=== PATIENT | female | born 1970 | race Hispanic/Latino ===

== ENCOUNTER 2018-06-30 09:23 | Emergency (ER) | payer OTHER ==
[~2018-06-30] VITALS: Ht 160 cm; Wt 88.9 kg
--- OUTSIDE RECORDS SUMMARY | 2018-06-30 09:25 | XMS REPORT | Summary of Care ---
Author Author [facility] Organization [facility] Address Unknown Phone Unavailable Encounter JOHN Cho(NAOMY) [id number] Date(s): 03/24/16 - 03/25/16 [facility] [address] [place] [address]- Discharge Diagnosis: Abdominal pain Discharge Disposition: Home or Self Care Attending Physician: Surya Perez MD Vital Signs Most recent to 1 2 oldest [Reference Range]: Height 162.56 cm (03/24/16 9:00 PM) Temperature Oral 98.2 DegF 98 DegF [96.4-99.1 DegF] (03/25/16 12:20 AM) (03/24/16 9:00 PM) Blood Pressure 129/79 mmHg 130/80 mmHg [90-140/60-90 mmHg] (03/25/16 12:20 AM) (03/24/16 9:00 PM) Respiratory Rate 20 BRMIN 18 BRMIN [14-20 BRMIN] (03/25/16 12:20 AM) (03/24/16 9:00 PM) Peripheral Pulse 70 bpm 74 bpm Rate [60-100 bpm] (03/25/16 12:20 AM) (03/24/16 9:00 PM) Weight 81.818 kg (03/24/16 9:00 PM) Body Mass Index 30.96 m2 (03/24/16 9:00 PM) Problem List Condition Effective Dates Status Health Status Informant MRSA(Confirmed)1, 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 Allergies, Adverse Reactions, Alerts Substance Reaction Severity Status penicillins Active Medications Cipro 500 mg oral tablet 500 mg=1 tab, PO, Q12H, X 7 day, # 14 tab, 0 Refill(s) Start Date: 03/25/16 Stop Date: 04/01/16 Status: Ordered Dilaudid 0.5 mg, Route: IV, ONCE, Dosing Weight 81.818, kg, Start date: 03/24/16 23:54:00 CDT, Stop date: 03/24/16 23:54:00 CDT Start Date: 03/24/16 Stop Date: 03/25/16 Status: Discontinued Flagyl 500 mg oral tablet 500 mg=1 tab, PO, BID, X 7 day, # 14 tab, 0 Refill(s) Start Date: 03/25/16 Stop Date: 04/01/16 Status: Ordered morphine Sulfate 4 mg, 2 mL, Route: IVP, Drug form: INJ, ONCE, Dosing Weight 81.818, kg, Priority : STAT, Start date: 03/24/16 21:10:00 CDT, Stop date: 03/24/16 21:10:00 CDT Notes: (Same as:MORPhine Sulfate) Start Date: 03/24/16 Stop Date: 03/24/16 Status: Completed ondansetron 4 mg, 2 mL, Route: IVP, Drug form: INJ, ONCE, Dosing Weight 81.818, kg, Priority : STAT, Start date: 03/24/16 21:10:00 CDT, Stop date: 03/24/16 21:10:00 CDT Notes: (Same as: Lenora) MEDICATION WASTE Product Size: 4 mgProduct Was dwight: ___ mg Start Date: 03/24/16 Stop Date: 03/24/16 Status: Completed Saline Flush 0.9% 10 mL, Route: IVP, Drug Form: INJ, Dosing Weight 81.818, kg, PRN, PRN Line Flush , Start date: 03/24/16 21:10:00 CDT, Duration: 30 day, Stop date: 04/23/16 21:09 :00 CDT Notes: (Same as: BD Posiflush) Start Date: 03/24/16 Stop Date: 03/25/16 Status: Discontinued Sodium Chloride 0.9% (Bolus) IV 1,000 mL, 2,000 ml/hr, Infuse Over: 30 minutes, Route: IV, 1,000, Drug form: INJ , ONCE, Priority: STAT, Dosing Weight 81.818 kg, Start date: 03/24/16 21:10:00 C DT, Duration: 1 doses or times, Stop date: 03/24/16 21:10:00 CDT Start Date: 03/24/16 Stop Date: 03/24/16 Status: Completed Ultram 50 mg oral tablet 100 mg=2 tab, PO, Q6H, PRN pain, X 5 day, # 40 tab, 0 Refill(s) Start Date: 03/25/16 Stop Date: 03/30/16 Status: Ordered Zofran ODT 4 mg oral tablet, disintegrating 4 mg=1 tab, PO, BID, PRN Nausea and Vomiting, Dissolve tab under tongue, X 4 day , # 8 tab, 0 Refill(s) Start Date: 03/25/16 Stop Date: 03/29/16 Status: Ordered Results ELECTROLYTES Most recent to 1 oldest [Reference Range]: Sodium Lvl [135-145 138 mEq/L mEq/L] (03/24/16 10:03 PM) Potassium Lvl 3.8 mEq/L [3.5-5.1 mEq/L] (03/24/16 10:03 PM) Chloride Lvl [95-109 107 mEq/L mEq/L] (03/24/16 10:03 PM) CO2 [24-32 mEq/L] 23 mEq/L *LOW* (03/24/16 10:03 PM) AGAP [10.0-20.0 11.8 mEq/L mEq/L] (03/24/16 10:03 PM) CHEM PANEL Most recent to 1 oldest [Reference Range]: Creatinine Lvl 0.87 mg/dL [0.50-1.40 mg/dL] (03/24/16 10:03 PM) eGFR 81 mL/min/1.73m2 1 *NA* (03/24/16 10:03 PM) BUN [7-22 mg/dL] 16 mg/dL (03/24/16 10:03 PM) B/C Ratio [6-25] 18 (03/24/16 10:03 PM) Glucose Lvl [70-99 112 mg/dL mg/dL] *HI* (03/24/16 10:03 PM) Total Protein 7.2 g/dL [6.4-8.4 g/dL] (03/24/16 10:03 PM) Albumin Lvl [3.5-5.0 3.6 g/dL g/dL] (03/24/16 10:03 PM) Globulin [2.7-4.2 3.6 g/dL g/dL] (03/24/16 10:03 PM) A/G Ratio [0.7-1.6] 1.0 (03/24/16 10:03 PM) Calcium Lvl 8.1 mg/dL [8.5-10.5 mg/dL] *LOW* (03/24/16 10:03 PM) ALT [0-65 unit/L] 21 unit/L (03/24/16 10:03 PM) AST [0-37 unit/L] 11 unit/L (03/24/16 10:03 PM) Alk Phos [39-136 55 unit/L unit/L] (03/24/16 10:03 PM) Bili Total [0.2-1.3 0.3 mg/dL mg/dL] (03/24/16 10:03 PM) Lipase Lvl [73-393 178 unit/L unit/L] (03/24/16 10:03 PM) 1Result Comment: The eGFR is calculated using the CKD-EPI formula. In most young, healthy individuals the eGFR will be >90 mL/min/1.73m2. The eGFR declines with age. An eGFR of 60-89 may be normal in some populations, particularly the elderly, for whom the CKD-EPI formula has not been extensively validated. Use of the eGFR is not recommended in the following populations: Individuals with unstable creatinine concentrations, including patients and those with serious co-morbid conditions. Patients with extremes in muscle mass or diet. The data above are obtained from the National Kidney Disease Education Program ( NKDEP) which additionally recommends that when the eGFR is used in patients with extremes of body mass index for purposes of drug dosing, the eGFR should be mul tiplied by the estimated BMI. ENDOCRINOLOGY Most recent to 1 oldest [Reference Range]: hCG Tot <1 mIU/mL *NA* (03/24/16 10:03 PM) URINE CHEM Most recent to 1 oldest [Reference Range]: U Preg [Negative] Negative (03/24/16 10:40 PM) URINE AND STOOL Most recent to 1 oldest [Reference Range]: UA Turbidity [Clear] Clear (03/24/16 10:40 PM) UA Color Colorless *NA* (03/24/16 10:40 PM) UA pH [5.0-8.0] 7.0 (03/24/16 10:40 PM) UA Spec Grav 1.008 [<=1.030] (03/24/16 10:40 PM) UA Glucose [Negative Negative mg/dL mg/dL] *NA* (03/24/16 10:40 PM) UA Blood [Negative] Negative (03/24/16 10:40 PM) UA Ketones [Negative Negative mg/dL mg/dL] *NA* (03/24/16 10:40 PM) UA Protein [Negative Negative mg/dL mg/dL] (03/24/16 10:40 PM) UA Urobilinogen <=1.0 mg/dL [0.1-1.0 mg/dL] *NA* (03/24/16 10:40 PM) UA Bili [Negative] Negative *NA* (03/24/16 10:40 PM) UA Leuk Est Negative [Negative] (03/24/16 10:40 PM) UA Nitrite Negative [Negative] (03/24/16 10:40 PM) UA RBC [0-2 /HPF] <1 /HPF (03/24/16 10:40 PM) UA Sq Epi [Few /LPF] Occasional /LPF *NA* (03/24/16 10:40 PM) HEMATOLOGY Most recent to 1 oldest [Reference Range]: WBC [3.7-10.4 K/CMM] 9.3 K/CMM (03/24/16 10:03 PM) RBC [4.20-5.40 4.36 M/CMM M/CMM] (03/24/16 10:03 PM) Hgb [12.0-16.0 g/dL] 13.7 g/dL (03/24/16 10:03 PM) Hct [36.0-48.0 %] 39.7 % (03/24/16 10:03 PM) MCV [80.0-98.0 fL] 91.1 fL (03/24/16 10:03 PM) MCH [27.0-31.0 pg] 31.5 pg *HI* (03/24/16 10:03 PM) MCHC [32.0-36.0 34.6 g/dL g/dL] (03/24/16 10:03 PM) RDW [11.5-14.5 %] 13.5 % (03/24/16 10:03 PM) Platelet [133-450 201 K/CMM K/CMM] (03/24/16 10:03 PM) MPV [7.4-10.4 fL] 9.2 fL (03/24/16 10:03 PM) Segs [45.0-75.0 %] 59.8 % (03/24/16 10:03 PM) Lymphocytes 29.8 % [20.0-40.0 %] (03/24/16 10:03 PM) Monocytes [2.0-12.0 7.8 % %] (03/24/16 10:03 PM) Eosinophils [0.0-4.0 2.1 % %] (03/24/16 10:03 PM) Basophils [0.0-1.0 0.5 % %] (03/24/16 10:03 PM) Segs-Bands # 5.6 K/CMM [1.5-8.1 K/CMM] (03/24/16 10:03 PM) Lymphocytes # 2.8 K/CMM [1.0-5.5 K/CMM] (03/24/16 10:03 PM) Monocytes # [0.0-0.8 0.7 K/CMM K/CMM] (03/24/16 10:03 PM) Eosinophils # 0.2 K/CMM [0.0-0.5 K/CMM] (03/24/16 10:03 PM) Immunizations No data available for this section Procedures Procedure Date Related Diagnosis Body Site Cholecystectomy Tubal ligation Social History Social History Type Response Sexual Sexually active: Yes. Alcohol Current, Type Wine. Frequency: 1-2 times per year. Alcohol use interferes with work or home: No. Drinks more than intended: No. Others hurt by drinking: No. Ready to change: No. Household alcohol concerns: No. Smoking Status Never smoker; Exposure to Tobacco Smoke None; Cigarette Smoking Last 365 Days No; Reg Smoking Cessation Counseling No Assessment and Plan No data available for this section
--- OUTSIDE RECORDS SUMMARY | 2018-06-30 09:25 | XMS REPORT | Summary of Care ---
Author Organization Unknown Address Unknown Phone Unavailable Encounter JOHN Cho(NAOMY) [id number] Date(s): 11/17/13 - 11/17/13 [facility] [address] [address] [facility] Discharge Diagnosis: Upper respiratory infection Discharge Disposition: Home Physician Attending: Verenice Bone MD Reason for Visit BACK PAIN Vital Signs 1 2 3 Most recent to oldest [Reference Range]: 97.8 DegF (11/17/13 3:13 PM) 98.1 DegF (11/17/13 11:37 AM) Temperature Oral [96.4-99.1 DegF] 113 mmHg (11/17/13 3:13 PM) 127 mmHg (11/17/13 11:37 AM) Systolic Blood Pressure [90-140 mmHg] 73 mmHg (11/17/13 3:13 PM) 83 mmHg (11/17/13 11:37 AM) Diastolic Blood Pressure [60-90 mmHg] 19 BRMIN (11/17/13 3:13 PM) 18 BRMIN (11/17/13 2:02 PM) 18 BRMIN (11/17/13 11:37 AM) Respiratory Rate [14-20 BRMIN] 64 bpm (11/17/13 3:13 PM) 80 bpm (11/17/13 11:37 AM) Peripheral Pulse Rate [60-100 bpm] 90.909 kg (11/17/13 11:37 AM) Weight Problem List Condition Effective Dates Status Health Status Informant MRSA(Confirmed)1, 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 Allergies, Adverse Reactions, Alerts Substance Reaction Severity Status penicillins Active Medications acetaminophen-hydrocodone 325 mg-10 mg oral tablet 1 tab, Route: PO, Dosing Weight 90.909, kg, ONCE, STAT, Start date: 11/17/13 13: 45:00, Stop date: 11/17/13 13:45:00 Start Date: 11/17/13 Stop Date: 11/17/13 Status: Completed albuterol 0.083% inhalation solution 2.49 mg, Route: NEB, ONCE, Dosing Weight 90.909, kg, Priority: STAT, Start date: 11/17/13 13:45:00, Stop date: 11/17/13 13:45:00 Start Date: 11/17/13 Stop Date: 11/17/13 Status: Completed Azithromycin 5 Day Dose Pack 250 mg oral tablet 500 mg=2 tab, PO, ONCE, TAKE 2 TABLETS ON DAY ONE ONLY, # 2 tab, 0 Refill(s) Special Instructions: TAKE 2 TABLETS ON DAY ONE ONLY Start Date: 11/17/13 Status: Ordered predniSONE 20 mg oral tablet 60 mg=3 tab, PO, Daily, Take 3 tablets for 60 mg dose, # 15 tab, 0 Refill(s) Special Instructions: Take 3 tablets for 60 mg dose Start Date: 11/17/13 Stop Date: 11/22/13 Status: Ordered Tessalon 200 mg oral capsule 200 mg=1 cap, PO, TID, # 21 cap, 0 Refill(s) Start Date: 11/17/13 Stop Date: 11/24/13 Status: Ordered tramadol 50 mg oral tablet 50 mg=1 tab, PO, Q4H, Pain, # 60 tab, 0 Refill(s) Start Date: 11/17/13 Stop Date: 11/27/13 Status: Ordered Results ELECTROLYTES Most recent to 1 oldest [Reference Range]: Sodium Lvl [135-145 136 mEq/L mEq/L] (11/17/13 2:12 PM) Potassium Lvl 4.3 mEq/L [3.5-5.1 mEq/L] (11/17/13 2:12 PM) Chloride Lvl [95-109 106 mEq/L mEq/L] (11/17/13 2:12 PM) CO2 [24-32 mEq/L] 27 mEq/L (11/17/13 2:12 PM) AGAP [10.0-20.0 7.3 mEq/L mEq/L] *LOW* (11/17/13 2:12 PM) CHEM PANEL Most recent to 1 oldest [Reference Range]: Creatinine Lvl 1.1 mg/dL [0.5-1.4 mg/dL] (11/17/13 2:12 PM) eGFR 62 mL/min/1.73m2 1 *NA* (11/17/13 2:12 PM) BUN [7-22 mg/dL] 13 mg/dL (11/17/13 2:12 PM) Glucose Lvl [70-99 104 mg/dL 2 mg/dL] *HI* (11/17/13 2:12 PM) Calcium Lvl 8.2 mg/dL [8.5-10.5 mg/dL] *LOW* (11/17/13 2:12 PM) 1Result Comment: The eGFR is calculated [...] be mul tiplied by the estimated BMI. 2Interpretive Data: Adult reference range values reflect the clinical guidelines of the [place] [employer]. IMMUNOLOGY Most recent to 1 oldest [Reference Range]: CDC HIV 4th GEN Negative [Negative] (11/17/13 2:12 PM) HEMATOLOGY Most recent to 1 oldest [Reference Range]: WBC [3.7-10.4 K/CMM] 6.6 K/CMM (11/17/13 2:12 PM) RBC [4.20-5.40 4.16 M/CMM M/CMM] *LOW* (11/17/13 2:12 PM) Hgb [12.0-16.0 g/dL] 13.2 g/dL (11/17/13 2:12 PM) Hct [36.0-48.0 %] 38.3 % (11/17/13 2:12 PM) MCV [81.0-99.0 fL] 92.2 fL (11/17/13 2:12 PM) MCH [27.0-31.0 pg] 31.8 pg *HI* (11/17/13 2:12 PM) MCHC [32.0-36.0 34.5 g/dL g/dL] (11/17/13 2:12 PM) RDW [11.5-14.5 %] 13.5 % (11/17/13 2:12 PM) Platelet [133-450 101 K/CMM K/CMM] *LOW* (11/17/13 2:12 PM) MPV [7.4-10.4 fL] 9.7 fL (11/17/13 2:12 PM) Segs [45.0-75.0 %] 62.3 % (11/17/13 2:12 PM) Lymphocytes 30.5 % [20.0-40.0 %] (11/17/13 2:12 PM) Monocytes [2.0-12.0 4.0 % %] (11/17/13 2:12 PM) Eosinophils [0.0-4.0 2.5 % %] (11/17/13 2:12 PM) Basophils [0.0-1.0 0.7 % %] (11/17/13 2:12 PM) Segs-Bands # 4.1 K/CMM [1.5-8.1 K/CMM] (11/17/13 2:12 PM) Lymphocytes # 2.0 K/CMM [1.0-5.5 K/CMM] (11/17/13 2:12 PM) Monocytes # [0.0-0.8 0.3 K/CMM K/CMM] (11/17/13 2:12 PM) Eosinophils # 0.2 K/CMM [0.0-0.5 K/CMM] (11/17/13 2:12 PM) Basophils # [0.0-0.2 0.0 K/CMM K/CMM] (11/17/13 2:12 PM) D-Dimer 0.38 ug/mL FEU 3 *NA* (11/17/13 2:12 PM) 3Interpretive Data: In DIC, quantitative D-Dimer is generally greater than 0.66 ug/mL FEU. Values of quantitative D-Dimer less than 0.40 ug/mL FEU have been reported to be associated with a low probability of deep vein thrombosis/pulmonary embolism. This test alone should not be used to rule out DVT/PE. Medications Administered During Your Visit No data available for this section Immunizations No data available for this section
--- OUTSIDE RECORDS SUMMARY | 2018-06-30 09:25 | XMS REPORT | Summary of Care ---
Author Author [facility] Organization [facility] Address Unknown Phone Unavailable Encounter JOHN Cho(NAOMY) [id number] Date(s): 04/25/17 - 04/25/17 [facility] [address] [place] [address]- Discharge Disposition: Home or Self Care Attending Physician: Dale Mary MD Vital Signs Most recent to 1 2 oldest [Reference Range]: Height 162.56 cm (04/25/17 12:03 PM) Temperature Oral 98.0 DegF 98.3 DegF [96.4-99.1 DegF] (04/25/17 6:23 PM) (04/25/17 12:03 PM) Blood Pressure 145/78 mmHg 143/65 mmHg [90-140/60-90 mmHg] *HI* *HI* (04/25/17 6:23 PM) (04/25/17 12:03 PM) Respiratory Rate 20 BRMIN 18 BRMIN [14-20 BRMIN] (04/25/17 6:23 PM) (04/25/17 12:03 PM) Peripheral Pulse 74 bpm 73 bpm Rate [60-100 bpm] (04/25/17 6:23 PM) (04/25/17 12:03 PM) Weight 86.364 kg (04/25/17 12:03 PM) Body Mass Index 32.68 m2 (04/25/17 12:03 PM) Problem List Condition Effective Dates Status Health Status Informant Acute Resolved anxiety(Confirmed) 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 Allergies, Adverse Reactions, Alerts Substance Reaction Severity Status penicillins Active Medications Benadryl 25 mg, 0.5 mL, Route: IVP, Drug form: INJ, ONCE, Dosing Weight 86.364, kg, Prior ity: STAT, Start date: 04/25/17 15:09:00 CDT, Stop date: 04/25/17 15:09:00 CDT Notes: (Same as: Benadryl) Start Date: 04/25/17 Stop Date: 04/25/17 Status: Completed dexamethasone 10 mg, 2.5 mL, Route: IVP, Drug form: INJ, ONCE, Dosing Weight 86.364, kg, Prior ity: STAT, Start date: 04/25/17 15:09:00 CDT, Stop date: 04/25/17 15:09:00 CDT Start Date: 04/25/17 Stop Date: 04/25/17 Status: Completed ketOROLAC 15 mg/mL injectable solution 15 mg, 0.5 mL, Route: IVP, Drug form: INJ, ONCE, Dosing Weight 86.364, kg, Prior ity: STAT, Start date: 04/25/17 15:09:00 CDT, Stop date: 04/25/17 15:09:00 CDT Notes: (Same as:Toradol) IV bolus must be given >15 seconds. Give IM administration slowly and deeply into the muscle.Not for use > 4 days MEDICATION WASTE Product Size: 30 mgProduct Wasted: ___ mg Start Date: 04/25/17 Stop Date: 04/25/17 Status: Completed NS (Bolus) IV 1,000 mL, 1,000 ml/hr, Infuse Over: 1 hr, Route: IV, 1,000, Drug form: INJ, ONCE , Priority: STAT, Dosing Weight 86.364 kg, Start date: 04/25/17 15:09:00 CDT, Du ration: 1 doses or times, Stop date: 04/25/17 15:09:00 CDT Start Date: 04/25/17 Stop Date: 04/25/17 Status: Completed Reglan 10 mg, 2 mL, Route: IVP, Drug form: INJ, ONCE, Dosing Weight 86.364, kg, Priorit y: STAT, Start date: 04/25/17 15:09:00 CDT, Stop date: 04/25/17 15:09:00 CDT Notes: (Same as: Reglan) Start Date: 04/25/17 Stop Date: 04/25/17 Status: Completed Saline Flush 0.9% 10 mL, Route: IVP, Drug Form: INJ, Dosing Weight 81.818, kg, PRN, PRN Line Flush , Start date: 04/25/17 12:04:00 CDT, Duration: 30 day, Stop date: 05/25/17 12:03 :00 CDT Notes: Same as: BD Posiflush Sterile Start Date: 04/25/17 Stop Date: 04/25/17 Status: Discontinued Results URINE CHEM Most recent to 1 oldest [Reference Range]: U Preg [Negative] Negative (04/25/17 5:26 PM) URINE AND STOOL Most recent to 1 oldest [Reference Range]: UA Turbidity [Clear] Slight *ABN* (04/25/17 5:26 PM) UA Color [Yellow] Yellow *NA* (04/25/17 5:26 PM) UA pH [5.0-8.0] 6.0 (04/25/17 5:26 PM) UA Spec Grav 1.026 [<=1.030] (04/25/17 5:26 PM) UA Glucose [Negative Negative mg/dL mg/dL] *NA* (04/25/17 5:26 PM) UA Blood [Negative] Negative (04/25/17 5:26 PM) UA Ketones [Negative Negative mg/dL mg/dL] *NA* (04/25/17 5:26 PM) UA Protein [Negative Negative mg/dL mg/dL] (04/25/17 5:26 PM) UA Urobilinogen <=1.0 mg/dL [0.1-1.0 mg/dL] *NA* (04/25/17 5:26 PM) UA Bili [Negative] Negative *NA* (04/25/17 5:26 PM) UA Leuk Est Negative [Negative] (04/25/17 5:26 PM) UA Nitrite Negative [Negative] (04/25/17 5:26 PM) UA WBC [0-5 /HPF] 2 /HPF (04/25/17 5:26 PM) UA RBC [0-2 /HPF] 4 /HPF *HI* (04/25/17 5:26 PM) UA Sq Epi [Few /LPF] Occasional /LPF *NA* (04/25/17 5:26 PM) UA CaOx Peggy [None Moderate /HPF Seen /HPF] *ABN* (04/25/17 5:26 PM) UA Mucus [None Seen Few /LPF /LPF] *NA* (04/25/17 5:26 PM) HEMATOLOGY Most recent to 1 oldest [Reference Range]: WBC [3.7-10.4 K/CMM] 8.7 K/CMM (04/25/17 12:43 PM) RBC [4.20-5.40 4.60 M/CMM M/CMM] (04/25/17 12:43 PM) Hgb [12.0-16.0 g/dL] 14.6 g/dL (04/25/17 12:43 PM) Hct [36.0-48.0 %] 41.4 % (04/25/17 12:43 PM) MCV [80.0-98.0 fL] 90.0 fL (04/25/17 12:43 PM) MCH [27.0-31.0 pg] 31.8 pg *HI* (04/25/17 12:43 PM) MCHC [32.0-36.0 35.3 g/dL g/dL] (04/25/17 12:43 PM) RDW [11.5-14.5 %] 13.4 % (04/25/17 12:43 PM) Platelet [133-450 257 K/CMM K/CMM] (04/25/17 12:43 PM) MPV [7.4-10.4 fL] 8.6 fL (04/25/17 12:43 PM) Segs [45.0-75.0 %] 62.4 % (04/25/17 12:43 PM) Lymphocytes 26.7 % [20.0-40.0 %] (04/25/17 12:43 PM) Monocytes [2.0-12.0 7.5 % %] (04/25/17 12:43 PM) Eosinophils [0.0-4.0 2.8 % %] (04/25/17 12:43 PM) Basophils [0.0-1.0 0.6 % %] (04/25/17 12:43 PM) Segs-Bands # 5.4 K/CMM [1.5-8.1 K/CMM] (04/25/17 12:43 PM) Lymphocytes # 2.3 K/CMM [1.0-5.5 K/CMM] (04/25/17 12:43 PM) Monocytes # [0.0-0.8 0.7 K/CMM K/CMM] (04/25/17 12:43 PM) Eosinophils # 0.2 K/CMM [0.0-0.5 K/CMM] (04/25/17 12:43 PM) Basophils # [0.0-0.2 0.1 K/CMM K/CMM] (04/25/17 12:43 PM) Immunizations No data available for this [...]
--- OUTSIDE RECORDS SUMMARY | 2018-06-30 09:25 | XMS REPORT | Summary of Care ---
Author Author [facility] Organization [facility] Address Unknown Phone Unavailable Encounter JOHN Cho(NAOMY) [id number] Date(s): 04/03/17 - 04/03/17 [facility] [address] [place] [address]- Discharge Disposition: Non-Emergent Attending Physician: Anna Jose MD Vital Signs Most recent to 1 oldest [Reference Range]: Height 162.56 cm (04/03/17 6:45 PM) Temperature Oral 98.6 DegF [96.4-99.1 DegF] (04/03/17 6:45 PM) Blood Pressure 148/79 mmHg [90-140/60-90 mmHg] *HI* (04/03/17 6:45 PM) Respiratory Rate 17 BRMIN [14-20 BRMIN] (04/03/17 6:45 PM) Peripheral Pulse 60 bpm Rate [60-100 bpm] (04/03/17 6:45 PM) Weight 81.818 kg (04/03/17 6:45 PM) Body Mass Index 30.96 m2 (04/03/17 6:45 PM) Problem List Condition Effective Dates Status Health Status Informant MRSA(Confirmed)1, 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 Allergies, Adverse Reactions, Alerts Substance Reaction Severity Status penicillins Active Medications No data available for this section Results No data available for this section Immunizations [...] alcohol concerns: No. Smoking Status Never smoker; Ready to change: No; Concerns about tobacco use in household: No; Exposure to Tobacco Smoke None; Cigarette Smoking Last 365 Days No; Reg Smoking Cessation Counseling No Assessment and Plan No data available for this section
--- OUTSIDE RECORDS SUMMARY | 2018-06-30 09:25 | XMS REPORT | Summary of Care ---
Author Organization Unknown Address Unknown Phone Unavailable Encounter HQ Marquis(NAOMY) [id number] Date(s): 12/06/13 - 12/06/13 [facility] [address] [address] - [facility] Discharge Diagnosis: Muscle strain Discharge Disposition: Home Physician Attending: Arslan Antunez MD Reason for Visit LEFT SIDE PAIN Vital Signs 1 2 3 Most recent to oldest [Reference Range]: 162.56 cm (12/06/13 7:46 AM) Height 98.7 DegF (12/06/13 11:30 AM) 98.9 DegF (12/06/13 10:56 AM) 98.4 DegF (12/06/13 7:50 AM) Temperature Oral [96.4-99.1 DegF] 117 mmHg (12/06/13 11:30 AM) 126 mmHg (12/06/13 10:56 AM) 143 mmHg *HI* (12/06/13 7:50 AM) Systolic Blood Pressure [90-140 mmHg] 74 mmHg (12/06/13 11:30 AM) 80 mmHg (12/06/13 10:56 AM) 99 mmHg *HI* (12/06/13 7:50 AM) Diastolic Blood Pressure [60-90 mmHg] 18 BRMIN (12/06/13 11:30 AM) 18 BRMIN (12/06/13 10:56 AM) 18 BRMIN (12/06/13 7:50 AM) Respiratory Rate [14-20 BRMIN] 72 bpm (12/06/13 11:30 AM) 71 bpm (12/06/13 10:56 AM) 63 bpm (12/06/13 7:50 AM) Peripheral Pulse Rate [60-100 bpm] 81.818 kg (12/06/13 7:46 AM) Weight 30.96 m2 (12/06/13 7:46 AM) Body Mass Index Problem List Condition Effective Dates Status Health Status Informant MRSA(Confirmed)1, 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 Allergies, Adverse Reactions, Alerts Substance Reaction Severity Status penicillins Active Medications Flexeril 10 mg, Route: PO, ONCE, Dosing Weight 81.818, kg, Priority: STAT, Start date: 10:58:00, Stop date: 12/06/13 10:58:00 Start Date: 12/06/13 Stop Date: 12/06/13 Status: Completed Ultram ER 100 mg oral tablet, extended release 100 mg=1 tab, PO, Daily, # 15 tab, 0 Refill(s) Start Date: 12/06/13 Status: Ordered Medications Administered During Your Visit No data available for this section Immunizations No data available for this section Procedures Procedure Type Body Site Date of Procedure Related Diagnosis Cholecystectomy Tubal ligation Social History Social History Type Response Sexual Sexually active: Yes Alcohol Use: Current, Type: Wine, Frequency: 1-2 times per year, Has alcohol use interfered with work or home life? No, Do you ever drink more than intended? No, Has anyone been hurt or at risk by your drinking? No, Ready to change: No, Concerns about alcohol use in household: No Smoking Status Never smoker, Exposure to Tobacco Smoke None, Cigarette Smoking Last 365 Days No, Reg Smoking Cessation Counseling No
--- OUTSIDE RECORDS SUMMARY | 2018-06-30 09:25 | XMS REPORT | Summary of Care ---
Author Author [facility] Organization [facility] Address Unknown Phone Unavailable Encounter HQ Marquis(NAOMY) [id number] Date(s): 05/16/17 - 05/17/17 [facility] [address] [place] [address]- [phone] Discharge Diagnosis: Atypical chest pain Discharge Diagnosis: Headache Discharge Disposition: Home or Self Care Attending Physician: Angeline Ahumada DO Vital Signs 1 2 3 Most recent to oldest [Reference Range]: 162.56 cm (05/16/17 7:34 PM) Height 97.9 DegF (05/17/17 1:55 AM) 98 DegF (05/16/17 9:51 PM) 97.9 DegF (05/16/17 7:34 PM) Temperature Oral [96.4-99.1 DegF] 126/77 mmHg (05/17/17 1:55 AM) 139/81 mmHg (05/17/17 12:55 AM) 145/78 mmHg *HI* (05/16/17 11:55 PM) Blood Pressure [90-140/60-90 mmHg] 17 BRMIN (05/17/17 1:55 AM) 20 BRMIN (05/17/17 12:55 AM) 16 BRMIN (05/16/17 11:55 PM) Respiratory Rate [14-20 BRMIN] 65 bpm (05/16/17 9:51 PM) 74 bpm (05/16/17 7:34 PM) Peripheral Pulse Rate [60-100 bpm] 87.273 kg (05/16/17 7:34 PM) Weight 33.03 m2 (05/16/17 7:34 PM) Body Mass Index Problem List Condition Effective Dates Status Health Status Informant Acute Resolved anxiety(Confirmed) 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 Allergies, Adverse Reactions, Alerts Substance Reaction Severity Status penicillins Active Medications diphenhydrAMINE 25 mg, Route: IVP, ONCE, Dosing Weight 87.273, kg, Priority: STAT, Start date: 1 23:35:00 CDT, Stop date: 05/16/17 23:35:00 CDT Start Date: 05/16/17 Stop Date: 05/16/17 Status: Completed ketOROLAC 15 mg, Route: IVP, Drug form: INJ, ONCE, Dosing Weight 87.273, kg, Priority: STA T, Start date: 05/17/17 0:24:00 CDT, Stop date: 05/17/17 0:24:00 CDT Start Date: 05/17/17 Stop Date: 05/17/17 Status: Completed metoclopramide 10 mg, Route: IVP, Drug form: INJ, ONCE, Dosing Weight 87.273, kg, Priority: STA T, Start date: 05/16/17 23:35:00 CDT, Stop date: 05/16/17 23:35:00 CDT Start Date: 05/16/17 Stop Date: 05/16/17 Status: Completed Sodium Chloride 0.9% (Bolus) IV 1,000 mL, Infuse Over: 1 hr, Route: IV, ONCE, Priority: STAT, Dosing Weight 87.2 73 kg, Start date: 05/16/17 23:09:00 CDT, Duration: 1 doses or times, Stop date: 05/16/17 23:09:00 CDT Start Date: 05/16/17 Stop Date: 05/16/17 Status: Completed Sodium Chloride 0.9% (Bolus) IV 1,000 mL, Infuse Over: 1 hr, Route: IV, ONCE, Priority: STAT, Dosing Weight 87.2 73 kg, Start date: 05/16/17 23:35:00 CDT, Duration: 1 doses or times, Stop date: 05/16/17 23:35:00 CDT Start Date: 05/16/17 Stop Date: 05/17/17 Status: Completed Valium 5 mg oral tablet 5 mg=1 tab, PO, Q8H, PRN Muscle Spasms, X 5 day, # 15 tab, 0 Refill(s) Start Date: 05/17/17 Stop Date: 05/22/17 Status: Ordered Results ELECTROLYTES Most recent to 1 oldest [Reference Range]: Sodium Lvl [135-145 137 mEq/L mEq/L] (05/16/17 10:14 PM) Potassium Lvl 3.9 mEq/L [3.5-5.1 mEq/L] (05/16/17 10:14 PM) Chloride Lvl [95-109 104 mEq/L mEq/L] (05/16/17 10:14 PM) CO2 [24-32 mEq/L] 26 mEq/L (05/16/17 10:14 PM) AGAP [10.0-20.0 10.9 mEq/L mEq/L] (05/16/17 10:14 PM) CHEM PANEL Most recent to 1 oldest [Reference Range]: Creatinine Lvl 0.56 mg/dL [0.50-1.40 mg/dL] (05/16/17 10:14 PM) eGFR 112 mL/min/1.73m2 1 *NA* (05/16/17 10:14 PM) BUN [7-22 mg/dL] 10 mg/dL (05/16/17 10:14 PM) B/C Ratio [6-25] 18 (05/16/17 10:14 PM) Glucose Lvl [70-99 99 mg/dL mg/dL] (05/16/17 10:14 PM) Total Protein 7.3 g/dL [6.4-8.4 g/dL] (05/16/17 10:14 PM) Albumin Lvl [3.5-5.0 3.6 g/dL g/dL] (05/16/17 10:14 PM) Globulin [2.7-4.2 3.7 g/dL g/dL] (05/16/17 10:14 PM) A/G Ratio [0.7-1.6] 1.0 (05/16/17 10:14 PM) Calcium Lvl 8.4 mg/dL [8.5-10.5 mg/dL] *LOW* (05/16/17 10:14 PM) Phosphorus [2.5-4.5 3.4 mg/dL mg/dL] (05/16/17 10:14 PM) Magnesium Lvl 2.0 mg/dL [1.8-2.4 mg/dL] (05/16/17 10:14 PM) ALT [0-65 unit/L] 19 unit/L (05/16/17 10:14 PM) AST [0-37 unit/L] 12 unit/L (05/16/17 10:14 PM) Alk Phos [39-136 59 unit/L unit/L] (05/16/17 10:14 PM) Bili Total [0.2-1.3 0.2 mg/dL mg/dL] (05/16/17 10:14 PM) 1Result Comment: The eGFR is calculated [...] be mul tiplied by the estimated BMI. CARDIAC ENZYMES Most recent to 1 oldest [Reference Range]: Total CK [12-191 39 unit/L unit/L] (05/16/17 10:14 PM) CK MB [0.5-3.6 0.5 ng/mL ng/mL] (05/16/17 10:14 PM) CK MB Index 1.3 [0.0-2.5] (05/16/17 10:14 PM) Troponin-I <0.02 ng/mL [0.00-0.40 ng/mL] (05/16/17 10:14 PM) URINE CHEM Most recent to 1 oldest [Reference Range]: U Preg [Negative] Negative (05/16/17 11:10 PM) URINE AND STOOL Most recent to 1 oldest [Reference Range]: UA Turbidity [Clear] Clear (05/16/17 11:10 PM) UA Color Ltyellow *NA* (05/16/17 11:10 PM) UA pH [5.0-8.0] 5.0 (05/16/17 11:10 PM) UA Spec Grav 1.011 [<=1.030] (05/16/17 11:10 PM) UA Glucose [Negative Negative mg/dL mg/dL] *NA* (05/16/17 11:10 PM) UA Blood [Negative] Large *ABN* (05/16/17 11:10 PM) UA Ketones [Negative Negative mg/dL mg/dL] *NA* (05/16/17 11:10 PM) UA Protein [Negative Negative mg/dL mg/dL] (05/16/17 11:10 PM) UA Urobilinogen <=1.0 mg/dL [0.1-1.0 mg/dL] *NA* (05/16/17 11:10 PM) UA Bili [Negative] Negative *NA* (05/16/17 11:10 PM) UA Leuk Est Negative [Negative] (05/16/17 11:10 PM) UA Nitrite Negative [Negative] (05/16/17 11:10 PM) UA WBC [0-5 /HPF] 3 /HPF (05/16/17 11:10 PM) UA RBC [0-2 /HPF] 15 /HPF *HI* (05/16/17 11:10 PM) UA Bacteria [None Occasional /HPF Seen /HPF] *NA* (05/16/17 11:10 PM) UA Sq Epi [Few /LPF] Occasional /LPF *NA* (05/16/17 11:10 PM) HEMATOLOGY Most recent to 1 oldest [Reference Range]: WBC [3.7-10.4 K/CMM] 10.6 K/CMM *HI* (05/16/17 10:14 PM) RBC [4.20-5.40 4.32 M/CMM M/CMM] (05/16/17 10:14 PM) Hgb [12.0-16.0 g/dL] 13.3 g/dL (05/16/17 10:14 PM) Hct [36.0-48.0 %] 38.9 % (05/16/17 10:14 PM) MCV [80.0-98.0 fL] 89.9 fL (05/16/17 10:14 PM) MCH [27.0-31.0 pg] 30.7 pg (05/16/17 10:14 PM) MCHC [32.0-36.0 34.2 g/dL g/dL] (05/16/17 10:14 PM) RDW [11.5-14.5 %] 13.3 % (05/16/17 10:14 PM) Platelet [133-450 278 K/CMM K/CMM] (05/16/17 10:14 PM) MPV [7.4-10.4 fL] 8.2 fL (05/16/17 10:14 PM) Segs [45.0-75.0 %] 61.4 % (05/16/17 10:14 PM) Lymphocytes 29.5 % [20.0-40.0 %] (05/16/17 10:14 PM) Monocytes [2.0-12.0 6.6 % %] (05/16/17 10:14 PM) Eosinophils [0.0-4.0 2.2 % %] (05/16/17 10:14 PM) Basophils [0.0-1.0 0.3 % %] (05/16/17 10:14 PM) Segs-Bands # 6.5 K/CMM [1.5-8.1 K/CMM] (05/16/17 10:14 PM) Lymphocytes # 3.1 K/CMM [1.0-5.5 K/CMM] (05/16/17 10:14 PM) Monocytes # [0.0-0.8 0.7 K/CMM K/CMM] (05/16/17 10:14 PM) Eosinophils # 0.2 K/CMM [0.0-0.5 K/CMM] (05/16/17 10:14 PM) PT [12.0-14.7 12.1 seconds seconds] (05/16/17 10:14 PM) INR [0.85-1.17] 0.90 (05/16/17 10:14 PM) PTT [22.9-35.8 26.6 seconds seconds] (05/16/17 10:14 PM) Immunizations No data available for this [...]
--- OUTSIDE RECORDS SUMMARY | 2018-06-30 09:25 | XMS REPORT | CCD ---
Author Author Auto Generated Organization [facility] Address Unknown Phone Unavailable Care Team Providers Care Remote Operations Producer Name Role Phone Arslan Antunez CP Allergies, Adverse Reactions, Alerts Substance Reaction Status NKDA Active Problem List Condition Effective Dates Status MRSA1 Active 1Problem added by Discern Expert. Medications Medication Instructions Start Date End Date Status [place] 5/325 oral 1-2 tab, PO, Q4-6H, PRN, 30 tab, 12/02/2012 12/07/2012 Ordered tablet Pain, Substitution Allowed, Maintenance clindamycin 150 mg 300 mg, 2 cap, PO, Q6H, 80 cap, 12/02/2012 12/12/2012 Ordered oral capsule Substitution Allowed, CAP [place] 7.5/325 oral 1 tab, Route: PO, Dosing Weight 12/02/2012 12/02/2012 Completed tablet 81.818, kg, ONCE, Start date: 12/02/12 9:26:00, Stop date: 12/02/12 9:26:00 clindamycin 600 mg, 4 mL, Route: IM, Drug form: 12/02/2012 12/02/2012 Completed INJ, ONCE, Dosing Weight 81.818, kg, Priority: STAT, Start date: 12/02/12 11:17:00, Stop date: 12/02/12 11:17:00 Vital Signs Most recent to oldest [Reference Range]: 1 Height 162.56 cm (12/02/2012 08:56:00) Weight 81.818 kg (12/02/2012 08:56:00) Results Microbiology Reports PROCEDURE:Culture: Wound/Abscess w/Gram Stain STATUS: Auth (Verified) BODY SITE: Abscess COLLECTED DATE/TIME: 12/02/2012 11:29:00 SOURCE: Abscess FREE TEXT SOURCE: FINAL REPORTS Final Report Many Methicillin Resistant Staphylococcus aureus , Upon Supplemental Testing, Th is Isolate Was Not Found To Be Resistant To Clindamycin By An Inducible Mechanism. Significant Findings Called To: ALFRED Peña SE Lab At: 12/04/2012 11:15 Called By: deann Read Back Ok PRELIMINARY REPORTS Preliminary Report Many Staphylococcus aureus Sensitivity Pending STAIN REPORTS Stain Report Few Wbc'S; Rare Gram Positive Cocci In Clusters SUSCEPTIBILITY REPORT MRSA Antibiotic INTERP., FUNMI., Clindamycin S <=0.25 Erythromycin R >4 Levofloxacin I 4 Oxacillin R >2 Rifampin S <=1 Tetracycline S <=1 Trimethoprim/Sulfamethoxazole S <=0.5/9.5 Vancomycin S 2
--- OUTSIDE RECORDS SUMMARY | 2018-06-30 09:25 | XMS REPORT | Summary of Care ---
Author Author [facility] Organization [facility] Address Unknown Phone Unavailable Encounter JOHN Cho(NAOMY) [id number] Date(s): 12/19/15 - 12/19/15 [facility] [address] [place] [address]- Discharge Diagnosis: Cough Discharge Diagnosis: Wheezing Discharge Disposition: Home Attending Physician: Vadim Hernandez MD Vital Signs 1 2 3 Most recent to oldest [Reference Range]: 162.56 cm (12/19/15 8:41 AM) Height 98.2 DegF (12/19/15 12:42 PM) 97.6 DegF (12/19/15 8:41 AM) Temperature Oral [96.4-99.1 DegF] 121/72 mmHg (12/19/15 12:42 PM) 142/80 mmHg *HI* (12/19/15 10:16 AM) 156/86 mmHg *HI* (12/19/15 8:41 AM) Blood Pressure [90-140/60-90 mmHg] 16 BRMIN (12/19/15 12:42 PM) 18 BRMIN (12/19/15 10:57 AM) 16 BRMIN (12/19/15 10:16 AM) Respiratory Rate [14-20 BRMIN] 67 bpm (12/19/15 12:42 PM) 63 bpm (12/19/15 10:16 AM) 77 bpm (12/19/15 8:41 AM) Peripheral Pulse Rate [60-100 bpm] 77.273 kg (12/19/15 8:41 AM) Weight 29.24 m2 (12/19/15 8:41 AM) Body Mass Index Problem List Condition Effective Dates Status Health Status Informant MRSA(Confirmed)1, 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 Allergies, Adverse Reactions, Alerts Substance Reaction Severity Status penicillins Active Medications DuoNeb inhalation solution 3 ml, Route: NEB, Drug Form: SOLN, Dosing Weight 77.273, kg, PRN, PRN Respirator y Protocol, Start date: 12/19/15 9:11:00 CDT, Duration: 30 day, Stop date: 01/17 9:10:00 CDT Notes: (Same as: Duoneb) Start Date: 12/19/15 Stop Date: 12/19/15 Status: Discontinued predniSONE 60 mg, 6 tab, Route: PO, Drug form: TAB, ONCE, Dosing Weight 77.273, kg, Priorit y: STAT, Start date: 12/19/15 9:11:00 CDT, Stop date: 12/19/15 9:11:00 CDT Notes: (Same as: PredniSONE) Take with food. Start Date: 12/19/15 Stop Date: 12/19/15 Status: Completed predniSONE 20 mg oral tablet 60 mg=3 tab, PO, Daily, X 4 day, # 12 tab, 0 Refill(s) Start Date: 12/19/15 Stop Date: 12/23/15 Status: Ordered Proventil HFA 90 mcg/inh inhalation aerosol with adapter 2 puff, INHALATION, QID, PRN for wheezing, use with spacer chamber, # 25 gm, 0 R efill(s) Start Date: 12/19/15 Status: Ordered Results No data available for this section [...]
--- OUTSIDE RECORDS SUMMARY | 2018-06-30 09:25 | XMS REPORT | Summary of Care ---
Author Author [facility] Organization [facility] Address Unknown Phone Unavailable Encounter HQ Marquis(NAOMY) [id number] Date(s): 07/08/17 - 07/08/17 [facility] [address] [place] [address]- Discharge Diagnosis: Acute neck pain Discharge Diagnosis: Acute joint pain Discharge Diagnosis: Chest pain, atypical Discharge Disposition: Home or Self Care Attending Physician: Wil Espinosa MD Vital Signs 1 2 3 Most recent to oldest [Reference Range]: 162.56 cm (07/08/17 10:34 AM) Height 98.2 DegF (07/08/17 10:34 AM) Temperature Oral [96.4-99.1 DegF] 121/69 mmHg (07/08/17 4:24 PM) 131/86 mmHg (07/08/17 3:06 PM) 137/92 mmHg (07/08/17 10:34 AM) Blood Pressure [90-140/60-90 mmHg] 16 BRMIN (07/08/17 4:24 PM) 16 BRMIN (07/08/17 3:06 PM) 16 BRMIN (07/08/17 10:34 AM) Respiratory Rate [14-20 BRMIN] 79 bpm (07/08/17 4:24 PM) 80 bpm (07/08/17 3:06 PM) 98 bpm (07/08/17 10:34 AM) Peripheral Pulse Rate [60-100 bpm] 89.091 kg (07/08/17 10:34 AM) Weight 33.71 m2 (07/08/17 10:34 AM) Body Mass Index Problem List Condition Effective Dates Status Health Status Informant Acute Resolved anxiety(Confirmed) 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 Allergies, Adverse Reactions, Alerts Substance Reaction Severity Status penicillins Active Medications ketOROLAC 15 mg, 0.5 mL, Route: IVP, Drug form: INJ, ONCE, Dosing Weight 89.091, kg, Prior ity: STAT, Start date: 07/08/17 11:18:00 BICYCLE I ASSEMBLER, Stop date: 07/08/17 11:18:00 BICYCLE I ASSEMBLER Notes: (Same as:Toradol) IV bolus must be given >15 seconds. Give IM administration slowly and deeply into the muscle.Not for use > 4 days MEDICATION WASTE Product Size: 30 mgProduct Wasted: ___ mg Start Date: 07/08/17 Stop Date: 07/08/17 Status: Completed Saline Flush 0.9% 10 mL, Route: IVP, Drug Form: INJ, Dosing Weight 89.091, kg, PRN, PRN Line Flush , Start date: 07/08/17 11:17:00 BICYCLE I ASSEMBLER, Duration: 30 day, Stop date: 08/07/17 11:16 :00 BICYCLE I ASSEMBLER Notes: (Same as: BD Posiflush) Start Date: 07/08/17 Stop Date: 07/08/17 Status: Discontinued tramadol 50 mg, 1 tab, Route: PO, Drug form: TAB, ONCE, Dosing Weight 89.091, kg, > 50 kg, Priority: STAT, Start date: 07/08/17 14:52:00 BICYCLE I ASSEMBLER, Stop date: 07/08/17 1 4:52:00 BICYCLE I ASSEMBLER Notes: Not to exceed 400mg/day. (Same As: Ultram) Start Date: 07/08/17 Stop Date: 07/08/17 Status: Completed Results ELECTROLYTES Most recent to 1 2 oldest [Reference Range]: Sodium Lvl [135-145 141 mEq/L mEq/L] (07/08/17 12:03 PM) Potassium Lvl 3.5 mEq/L [3.5-5.1 mEq/L] (07/08/17 12:03 PM) Chloride Lvl [95-109 106 mEq/L mEq/L] (07/08/17 12:03 PM) CO2 [24-32 mEq/L] 26 mEq/L (07/08/17 12:03 PM) AGAP [10.0-20.0 12.5 mEq/L mEq/L] (07/08/17 12:03 PM) CHEM PANEL Most recent to 1 2 oldest [Reference Range]: Creatinine Lvl 0.36 mg/dL [0.50-1.40 mg/dL] *LOW* (07/08/17 12:03 PM) eGFR 129 mL/min/1.73m2 1 *NA* (07/08/17: PM) BUN [7-22 mg/dL] 6 mg/dL *LOW* (07/08/17: PM) B/C Ratio [6-25] 17 (07/08/17 12: PM) Glucose Lvl [70-99 98 mg/dL mg/dL] (07/08/17: PM) Total Protein 7.7 g/dL [6.4-8.4 g/dL] (07/08/17 12: PM) Albumin Lvl [3.5-5.0 3.2 g/dL g/dL] *LOW* (07/08/17 PM) Globulin [2.7-4.2 4.5 g/dL g/dL] *HI* (07/08/17 12: PM) A/G Ratio [0.7-1.6] 0.7 (07/08/17 12: PM) Calcium Lvl 8.2 mg/dL [8.5-10.5 mg/dL] *LOW* (07/08/17 12:03 PM) ALT [0-65 unit/L] 80 unit/L *HI* (07/08/17 12: PM) AST [0-37 unit/L] 84 unit/L *HI* (07/08/17 12:03 PM) Alk Phos [39-136 98 unit/L unit/L] (07/08/17 12:03 PM) Bili Total [0.2-1.3 0.3 mg/dL mg/dL] (07/08/17 12:03 PM) 1Result Comment: The eGFR is calculated [...] BMI. CARDIAC ENZYMES Most recent to 1 2 oldest [Reference Range]: Total CK [12-191 73 unit/L unit/L] (07/08/17 12:03 PM) CK MB [0.5-3.6 1.2 ng/mL ng/mL] (07/08/17 12:03 PM) CK MB Index 1.6 [0.0-2.5] (07/08/17 12:03 PM) Troponin-I <0.02 ng/mL <0.02 ng/mL [0.00-0.40 ng/mL] (07/08/17 3:02 PM) (07/08/17 12:03 PM) HEMATOLOGY Most recent to 1 2 oldest [Reference Range]: WBC [3.7-10.4 K/CMM] 10.7 K/CMM *HI* (07/08/17: PM) RBC [4.20-5.40 4.10 M/CMM M/CMM] *LOW* (07/08/17: PM) Hgb [12.0-16.0 g/dL] 12.3 g/dL (07/08/17 12: PM) Hct [36.0-48.0 %] 35.5 % *LOW* (07/08/17: PM) MCV [80.0-98.0 fL] 86.7 fL (07/08/17 12: PM) MCH [27.0-31.0 pg] 29.9 pg (07/08/17 12: PM) MCHC [32.0-36.0 34.5 g/dL g/dL] (07/08/17 12: PM) RDW [11.5-14.5 %] 13.2 % (12/10/17 12:03 PM) Platelet [133-450 371 K/CMM K/CMM] (07/08/17 12:03 PM) MPV [7.4-10.4 fL] 8.6 fL (07/08/17 12:03 PM) Segs [45.0-75.0 %] 79.6 % *HI* (07/08/17 12:03 PM) Lymphocytes 13.9 % [20.0-40.0 %] *LOW* (07/08/17 12:03 PM) Monocytes [2.0-12.0 4.5 % %] (07/08/17 12:03 PM) Eosinophils [0.0-4.0 1.4 % %] (07/08/17 12:03 PM) Basophils [0.0-1.0 0.6 % %] (07/08/17 12:03 PM) Segs-Bands # 8.5 K/CMM [1.5-8.1 K/CMM] *HI* (07/08/17 12:03 PM) Lymphocytes # 1.5 K/CMM [1.0-5.5 K/CMM] (07/08/17 12:03 PM) Monocytes # [0.0-0.8 0.5 K/CMM K/CMM] (07/08/17 12:03 PM) Eosinophils # 0.1 K/CMM [0.0-0.5 K/CMM] (07/08/17 12:03 PM) Basophils # [0.0-0.2 0.1 K/CMM K/CMM] (07/08/17 12:03 PM) Immunizations No data available for this [...]
--- OUTSIDE RECORDS SUMMARY | 2018-06-30 09:25 | XMS REPORT | Summary of Care ---
Author Author [facility] Organization [facility] Address Unknown Phone Unavailable Encounter JOHN Cho(NAOMY) [id number] Date(s): 08/14/16 - 08/14/16 [facility] [address] [place] [address]- Discharge Diagnosis: Chest wall pain Discharge Disposition: Home or Self Care Attending Physician: Steph Chinchilla MD Vital Signs Most recent to 1 2 oldest [Reference Range]: Temperature Oral 97.9 DegF 97.9 DegF [96.4-99.1 DegF] (08/14/16 10:15 AM) (08/14/16 7:23 AM) Blood Pressure 132/96 mmHg 161/98 mmHg [90-140/60-90 mmHg] (08/14/16 10:15 AM) *HI* (08/14/16 7:23 AM) Respiratory Rate 18 BRMIN 18 BRMIN [14-20 BRMIN] (08/14/16 10:15 AM) (08/14/16 7:23 AM) Peripheral Pulse 66 bpm 71 bpm Rate [60-100 bpm] (08/14/16 10:15 AM) (08/14/16 7:23 AM) Problem List Condition Effective Dates Status Health Status Informant MRSA(Confirmed)1, 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 Allergies, Adverse Reactions, Alerts Substance Reaction Severity Status penicillins Active Medications albuterol 90 mcg/inh inhalation aerosol 2 puff, INHALATION, Q4H, PRN for wheezing, # 9 gm, 0 Refill(s) Start Date: 08/14/16 Stop Date: 08/14/16 Status: Discontinued ketOROLAC 30 mg/mL injectable solution 30 mg, Route: IV, ONCE, Dosing Weight 81.818, kg, Start date: 08/14/16 7:30:[address], Stop date: 08/14/16 7:30:00 COURT SPECIALIST Start Date: 08/14/16 Stop Date: 08/14/16 Status: Completed NS (Bolus) IV 1,000 mL, 1,000 ml/hr, Infuse Over: 1 hr, Route: IV, ONCE, Priority: STAT, Dosin g Weight 81.818 kg, Start date: 08/14/16 7:30:00 COURT SPECIALIST, Duration: 1 doses or times , Stop date: 08/14/16 7:30:00 COURT SPECIALIST Start Date: 08/14/16 Stop Date: 08/14/16 Status: Completed predniSONE 20 mg oral tablet 60 mg=3 tab, PO, Daily, Take 3 tablets for 60 mg dose, X 3 day, # 9 tab, 0 Refil l(s) Start Date: 08/14/16 Stop Date: 08/14/16 Status: Discontinued Saline Flush 0.9% 10 mL, Route: IVP, Drug Form: INJ, Dosing Weight 81.818, kg, PRN, PRN Line Flush , Start date: 08/14/16 7:23:00 COURT SPECIALIST, Duration: 30 day, Stop date: 09/13/16 7:22:[address] SPECIALIST Start Date: 08/14/16 Stop Date: 08/14/16 Status: Discontinued Ultram 50 mg oral tablet 100 mg=2 tab, PO, Q6H, PRN pain, X 3 day, # 24 tab, 0 Refill(s) Start Date: 08/14/16 Stop Date: 08/17/16 Status: Ordered Zofran 4 mg, Route: IVP, Drug form: INJ, ONCE, Dosing Weight 81.818, kg, Priority: STAT , Start date: 08/14/16 7:30:00 COURT SPECIALIST, Stop date: 08/14/16 7:30:00 COURT SPECIALIST Start Date: 08/14/16 Stop Date: 08/14/16 Status: Completed Results ELECTROLYTES Most recent to 1 oldest [Reference Range]: Sodium Lvl [135-145 138 mEq/L mEq/L] (08/14/16 7:50 AM) Potassium Lvl 3.7 mEq/L [3.5-5.1 mEq/L] (08/14/16 7:50 AM) Chloride Lvl [95-109 104 mEq/L mEq/L] (08/14/16 7:50 AM) CO2 [24-32 mEq/L] 24 mEq/L (08/14/16 7:50 AM) AGAP [10.0-20.0 13.7 mEq/L mEq/L] (08/14/16 7:50 AM) CHEM PANEL Most recent to 1 oldest [Reference Range]: Creatinine Lvl 0.66 mg/dL [0.50-1.40 mg/dL] (08/14/16 7:50 AM) eGFR 107 mL/min/1.73m2 1 *NA* (08/14/16 7:50 AM) BUN [7-22 mg/dL] 15 mg/dL (08/14/16 7:50 AM) B/C Ratio [6-25] 23 (08/14/16 7:50 AM) Glucose Lvl [70-99 100 mg/dL mg/dL] *HI* (08/14/16 7:50 AM) Total Protein 7.4 g/dL [6.4-8.4 g/dL] (08/14/16 7:50 AM) Albumin Lvl [3.5-5.0 3.8 g/dL g/dL] (08/14/16 7:50 AM) Globulin [2.7-4.2 3.6 g/dL g/dL] (08/14/16 7:50 AM) A/G Ratio [0.7-1.6] 1.1 (08/14/16 7:50 AM) Calcium Lvl 8.5 mg/dL [8.5-10.5 mg/dL] (08/14/16 7:50 AM) ALT [0-65 unit/L] 19 unit/L (08/14/16 7:50 AM) AST [0-37 unit/L] 16 unit/L (08/14/16 7:50 AM) Alk Phos [39-136 54 unit/L unit/L] (08/14/16 7:50 AM) Bili Total [0.2-1.3 0.3 mg/dL mg/dL] (08/14/16 7:50 AM) 1Result Comment: The eGFR is calculated using [...] 1 oldest [Reference Range]: Total CK [12-191 64 unit/L unit/L] (08/14/16 7:50 AM) CK MB [0.5-3.6 <0.5 ng/mL ng/mL] (08/14/16 7:50 AM) CK MB Index <0.8 [0.0-2.5] (08/14/16 7:50 AM) Troponin-I <0.02 ng/mL [0.00-0.40 ng/mL] (08/14/16 7:50 AM) BNP [<=100 pg/mL] 11 pg/mL (08/14/16 7:50 AM) URINE AND STOOL Most recent to 1 oldest [Reference Range]: UA Turbidity [Clear] Clear (08/14/16 8:39 AM) UA Color Ltyellow *NA* (08/14/16 8:39 AM) UA pH [5.0-8.0] 6.0 (08/14/16 8:39 AM) UA Spec Grav 1.009 [<=1.030] (08/14/16 8:39 AM) UA Glucose [Negative Negative mg/dL mg/dL] *NA* (08/14/16 8:39 AM) UA Blood [Negative] Small *ABN* (08/14/16 8:39 AM) UA Ketones [Negative Negative mg/dL mg/dL] *NA* (08/14/16 8:39 AM) UA Protein [Negative Negative mg/dL mg/dL] (08/14/16 8:39 AM) UA Urobilinogen <=1.0 mg/dL [0.1-1.0 mg/dL] *NA* (08/14/16 8:39 AM) UA Bili [Negative] Negative *NA* (08/14/16 8:39 AM) UA Leuk Est Negative [Negative] (08/14/16 8:39 AM) UA Nitrite Negative [Negative] (08/14/16 8:39 AM) UA WBC [0-5 /HPF] <1 /HPF (08/14/16 8:39 AM) UA RBC [0-2 /HPF] 1 /HPF (08/14/16 8:39 AM) UA Bacteria [None Occasional /HPF Seen /HPF] *NA* (08/14/16 8:39 AM) UA Sq Epi [Few /LPF] Occasional /LPF *NA* (08/14/16 8:39 AM) UA Mucus [None Seen Few /LPF /LPF] *NA* (08/14/16 8:39 AM) HEMATOLOGY Most recent to 1 oldest [Reference Range]: WBC [3.7-10.4 K/CMM] 7.3 K/CMM (08/14/16 7:50 AM) RBC [4.20-5.40 4.58 M/CMM M/CMM] (08/14/16 7:50 AM) Hgb [12.0-16.0 g/dL] 14.4 g/dL (08/14/16 7:50 AM) Hct [36.0-48.0 %] 41.3 % (08/14/16 7:50 AM) MCV [80.0-98.0 fL] 90.3 fL (08/14/16 7:50 AM) MCH [27.0-31.0 pg] 31.4 pg *HI* (08/14/16 7:50 AM) MCHC [32.0-36.0 34.8 g/dL g/dL] (08/14/16 7:50 AM) RDW [11.5-14.5 %] 13.7 % (08/14/16 7:50 AM) Platelet [133-450 212 K/CMM K/CMM] (08/14/16 7:50 AM) MPV [7.4-10.4 fL] 9.2 fL (08/14/16 7:50 AM) Segs [45.0-75.0 %] 53.6 % (08/14/16 7:50 AM) Lymphocytes 36.5 % [20.0-40.0 %] (08/14/16 7:50 AM) Monocytes [2.0-12.0 6.2 % %] (08/14/16 7:50 AM) Eosinophils [0.0-4.0 3.1 % %] (08/14/16 7:50 AM) Basophils [0.0-1.0 0.6 % %] (08/14/16 7:50 AM) Segs-Bands # 3.9 K/CMM [1.5-8.1 K/CMM] (08/14/16 7:50 AM) Lymphocytes # 2.6 K/CMM [1.0-5.5 K/CMM] (08/14/16 7:50 AM) Monocytes # [0.0-0.8 0.5 K/CMM K/CMM] (08/14/16 7:50 AM) Eosinophils # 0.2 K/CMM [0.0-0.5 K/CMM] (08/14/16 7:50 AM) Immunizations No data available for this section [...]
--- OUTSIDE RECORDS SUMMARY | 2018-06-30 09:26 | XMS REPORT ---
Author Author [facility] Address Unknown Phone Unavailable Care Team Providers [employer] Name Role Phone Unavailable Unavailable Problems This patient has no known problems. Allergies, Adverse Reactions, Alerts This patient has no known allergies or adverse reactions. Medications This patient has no known medications.
--- OUTSIDE RECORDS SUMMARY | 2018-06-30 09:26 | XMS REPORT | Summary of Care ---
Author Author [facility] Organization [facility] Address Unknown Phone Unavailable Encounter JOHN Cho(NAOMY) [id number] Date(s): 07/25/17 - 07/26/17 [facility] [address] [employer] provided by [facility] [employer] [facility] [place] [address]- Discharge Diagnosis: Upper extremity pain Discharge Diagnosis: Lower extremity pain, bilateral Discharge Disposition: Home or Self Care Attending Physician: Didier Davis MD Vital Signs 1 2 3 Most recent to oldest [Reference Range]: 165.1 cm (07/25/17 9:26 PM) Height 98.4 DegF (07/26/17 8:23 AM) 97.9 DegF (07/26/17 3:10 AM) 99.0 DegF (07/25/17 9:26 PM) Temperature Oral [96.4-99.1 DegF] 113/58 mmHg (07/26/17 8:07 AM) 132/76 mmHg (07/26/17 6:38 AM) 104/58 mmHg (07/26/17 5:04 AM) Blood Pressure [90-140/60-90 mmHg] 20 BRMIN (07/26/17 8:07 AM) 18 BRMIN (07/26/17 4:40 AM) 18 BRMIN (07/26/17 3:10 AM) Respiratory Rate [14-20 BRMIN] 86 bpm (07/26/17 3:10 AM) 86 bpm (07/25/17 9:26 PM) Peripheral Pulse Rate [60-100 bpm] 85.909 kg (07/25/17 9:26 PM) Weight 31.52 m2 (07/25/17 9:26 PM) Body Mass Index Problem List Condition Effective Dates Status Health Status Informant Acute Resolved anxiety(Confirmed) 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 Start Date: 07/26/17 Stop Date: 07/26/17 Status: Completed gabapentin 300 mg oral capsule 300 mg=1 cap, PO, TID, Day 1: 1 cap daily; Day 2: 1 cap BID, Day 3 and later: 1 cap TID, # 42 cap, 0 Refill(s) Start Date: 07/26/17 Stop Date: 08/10/17 Status: Ordered hydromorphone 1 mg, Route: IVP, ONCE, Dosing Weight 85.909, kg, Priority: STAT, Start date: 6:40:00 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, Stop date: 07/26/17 6:40:00 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 Start Date: 07/26/17 Stop Date: 07/26/17 Status: Completed ketOROLAC 15 mg, Route: IVP, Drug form: INJ, ONCE, Dosing Weight 85.909, kg, Priority: STA T, Start date: 07/26/17 6:47:00 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, Stop date: 07/26/17 6:47:00 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 Start Date: 07/26/17 Stop Date: 07/26/17 Status: Completed Medrol Dosepak 4 mg oral tablet See Instructions, PO, Take by mouth as directed on label., # 1 Pack, 0 Refill(s) Start Date: 07/26/17 Stop Date: 08/01/17 Status: Ordered Valium 5 mg, Route: PO, ONCE, Dosing Weight 85.909, kg, Priority: STAT, Start date: 3:42:00 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, Stop date: 07/26/17 3:42:00 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 Start Date: 07/26/17 Stop Date: 07/26/17 Status: Completed Results ELECTROLYTES Most recent to 1 oldest [Reference Range]: Sodium Lvl [135-145 136 mEq/L mEq/L] (07/25/17 10:20 PM) Potassium Lvl 4.4 mEq/L [3.5-5.1 mEq/L] (07/25/17 10:20 PM) Chloride Lvl [95-109 102 mEq/L mEq/L] (07/25/17 10:20 PM) CO2 [24-32 mEq/L] 23 mEq/L *LOW* (07/25/17 10:20 PM) AGAP [10.0-20.0 15.4 mEq/L mEq/L] (07/25/17 10:20 PM) CHEM PANEL Most recent to 1 oldest [Reference Range]: Creatinine Lvl 0.42 mg/dL [0.50-1.40 mg/dL] *LOW* (07/25/17 10:20 PM) eGFR 123 mL/min/1.73m2 1 *NA* (07/25/17 10:20 PM) BUN [7-22 mg/dL] 8 mg/dL (07/25/17 10:20 PM) Glucose Lvl [70-99 104 mg/dL mg/dL] *HI* (07/25/17 10:20 PM) Calcium Lvl 8.8 mg/dL [8.5-10.5 mg/dL] (07/25/17 10:20 PM) 1Result Comment: The eGFR is calculated [...] Most recent to 1 oldest [Reference Range]: Troponin-I <0.02 ng/mL [0.00-0.40 ng/mL] (07/25/17 10:20 PM) HEMATOLOGY Most recent to 1 oldest [Reference Range]: WBC [3.7-10.4 K/CMM] 8.5 K/CMM (07/26/17 3:42 AM) RBC [4.20-5.40 3.57 M/CMM M/CMM] *LOW* (07/26/17 3:42 AM) Hgb [12.0-16.0 g/dL] 10.1 g/dL *LOW* (07/26/17 3:42 AM) Hct [36.0-48.0 %] 30.2 % *LOW* (07/26/17 3:42 AM) MCV [80.0-98.0 fL] 84.4 fL (07/26/17 3:42 AM) MCH [27.0-31.0 pg] 28.2 pg (07/26/17 3:42 AM) MCHC [32.0-36.0 33.5 g/dL g/dL] (07/26/17 3:42 AM) RDW [11.5-14.5 %] 13.6 % (07/26/17 3:42 AM) Platelet [133-450 369 K/CMM K/CMM] (07/26/17 3:42 AM) MPV [7.4-10.4 fL] 7.7 fL (07/26/17 3:42 AM) Segs [45.0-75.0 %] 65.4 % (07/26/17 3:42 AM) Lymphocytes 25.7 % [20.0-40.0 %] (07/26/17 3:42 AM) Monocytes [2.0-12.0 6.4 % %] (07/26/17 3:42 AM) Eosinophils [0.0-4.0 1.8 % %] (07/26/17 3:42 AM) Basophils [0.0-1.0 0.7 % %] (07/26/17 3:42 AM) Segs-Bands # 5.5 K/CMM [1.5-8.1 K/CMM] (07/26/17 3:42 AM) Lymphocytes # 2.2 K/CMM [1.0-5.5 K/CMM] (07/26/17 3:42 AM) Monocytes # [0.0-0.8 0.5 K/CMM K/CMM] (07/26/17 3:42 AM) Eosinophils # 0.2 K/CMM [0.0-0.5 K/CMM] (07/26/17 3:42 AM) Basophils # [0.0-0.2 0.1 K/CMM K/CMM] (07/26/17 3:42 AM) Immunizations No data available for this [...]
--- OUTSIDE RECORDS SUMMARY | 2018-06-30 09:26 | XMS REPORT | Summary of Care ---
Author Author [facility] Organization [facility] Address Unknown Phone Unavailable Encounter HQ Marquis(FIN) [id number] Date(s): 12/16/17 - 12/17/17 [facility] [address] [place] [address]- Encounter Diagnosis Chronic joint pain (Discharge Diagnosis) - 12/17/17 Discharge Disposition: Home or Self Care Attending Physician: Jasen Vaughn DO Vital Signs Most recent to 1 2 oldest [Reference Range]: Height 162.56 cm (12/16/17 10:56 PM) Temperature Oral 99.2 DegF 99.6 DegF [96.4-99.1 DegF] *HI* *HI* (12/17/17 3:12 AM) (12/16/17 10:56 PM) Blood Pressure 128/72 mmHg 126/76 mmHg [90-140/60-90 mmHg] (12/17/17 3:12 AM) (12/16/17 10:56 PM) Respiratory Rate 16 BRMIN 18 BRMIN [14-20 BRMIN] (12/17/17 3:12 AM) (12/16/17 10:56 PM) Peripheral Pulse 82 bpm 88 bpm Rate [60-100 bpm] (12/17/17 3:12 AM) (12/16/17 10:56 PM) Weight 73.182 kg (12/16/17 10:56 PM) Body Mass Index 27.69 m2 (12/16/17 10:56 PM) Problem List Condition Effective Dates Status Health Status Informant Acute Resolved anxiety(Confirmed) 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 Allergies, Adverse Reactions, Alerts Substance Reaction Severity Status penicillins Active Medications dexamethasone 8 mg, Route: IM, ONCE, Dosing Weight 73.182, kg, Priority: STAT, Start date: 0:13:00 CDT, Stop date: 12/17/17 0:13:00 CDT Start Date: 12/17/17 Stop Date: 12/17/17 Status: Completed [place] 10/325 oral tablet 1 tab, Route: PO, Drug Form: TAB, Dosing Weight 73.182, kg, ONCE, STAT, Start da te: 12/17/17 0:13:00 CDT, Stop date: 12/17/17 0:13:00 CDT Start Date: 12/17/17 Stop Date: 12/17/17 Status: Completed Results ELECTROLYTES Most recent to 1 oldest [Reference Range]: Sodium Lvl [135-145 137 mEq/L mEq/L] (12/17/17 12:21 AM) Potassium Lvl 3.5 mEq/L [3.5-5.1 mEq/L] (12/17/17 12:21 AM) Chloride Lvl [95-109 103 mEq/L mEq/L] (12/17/17 12:21 AM) CO2 [24-32 mEq/L] 25 mEq/L (12/17/17 12:21 AM) AGAP [10.0-20.0 12.5 mEq/L mEq/L] (12/17/17 12:21 AM) CHEM PANEL Most recent to 1 oldest [Reference Range]: Creatinine Lvl 0.38 mg/dL [0.50-1.40 mg/dL] *LOW* (12/17/17 12:21 AM) eGFR 127 mL/min/1.73m2 1 *NA* (12/17/17 12:21 AM) BUN [7-22 mg/dL] 10 mg/dL (12/17/17 12:21 AM) Glucose Lvl [70-99 118 mg/dL mg/dL] *HI* (12/17/17 12:21 AM) Calcium Lvl 8.7 mg/dL [8.5-10.5 mg/dL] (12/17/17 12:21 AM) 1Result Comment: The eGFR is calculated [...] be mul tiplied by the estimated BMI. URINE AND STOOL Most recent to 1 oldest [Reference Range]: UA Turbidity [Clear] Clear (12/17/17 1:12 AM) UA Color [Yellow] Yellow *NA* (12/17/17 1:12 AM) UA pH [5.0-8.0] 5.5 (12/17/17 1:12 AM) UA Spec Grav 1.025 [<=1.030] (12/17/17 1:12 AM) UA Glucose Negative [Negative] (12/17/17 1:12 AM) UA Blood [Negative] Trace *ABN* (12/17/17 1:12 AM) UA Ketones Negative [Negative] *NA* (12/17/17 1:12 AM) UA Protein Negative [Negative] (12/17/17 1:12 AM) UA Urobilinogen 0.2 EU/dL [0.1-1.0 EU/dL] (12/17/17 1:12 AM) UA Bili [Negative] Negative *NA* (12/17/17 1:12 AM) UA Leuk Est Negative [Negative] (12/17/17 1:12 AM) UA Nitrite Negative [Negative] (12/17/17 1:12 AM) UA WBC [0-5 /HPF] <1 /HPF (12/17/17 1:12 AM) UA RBC [0-2 /HPF] 1 /HPF (12/17/17 1:12 AM) UA Sq Epi [Few /LPF] Occasional /LPF *NA* (12/17/17 1:12 AM) UA CaOx Peggy [None Few /HPF Seen /HPF] *NA* (12/17/17 1:12 AM) UA Mucus [None Seen Few /LPF /LPF] *NA* (12/17/17 1:12 AM) HEMATOLOGY Most recent to 1 oldest [Reference Range]: WBC [3.7-10.4 K/CMM] 12.5 K/CMM *HI* (12/17/17: AM) RBC [4.20-5.40 3.91 M/CMM M/CMM] *LOW* (12/17/17 AM) Hgb [12.0-16.0 g/dL] 10.2 g/dL *LOW* (12/17/17 AM) Hct [36.0-48.0 %] 31.5 % *LOW* (12/17/17 AM) MCV [80.0-98.0 fL] 80.5 fL (12/17/17 AM) MCH [27.0-31.0 pg] 26.0 pg *LOW* (12/17/17 AM) MCHC [32.0-36.0 32.3 g/dL g/dL] (12/17/17 12:21 AM) RDW [11.5-14.5 %] 17.4 % *HI* (12/17/17 12: AM) MPV [7.4-10.4 fL] 7.7 fL (12/17/17: AM) Platelet [133-450 505 K/CMM K/CMM] *HI* (12/17/17: AM) Segs [45.0-75.0 %] 71.9 % (12/17/17 12: AM) Lymphocytes 19.4 % [20.0-40.0 %] *LOW* (12/17/17: AM) Monocytes [2.0-12.0 6.3 % %] (12/17/17 12: AM) Eosinophils [0.0-4.0 1.8 % %] (12/17/17 12: AM) Basophils [0.0-1.0 0.6 % %] (12/17/17 12:21 AM) Segs-Bands # 9.0 K/CMM [1.5-8.1 K/CMM] *HI* (12/17/17 12:21 AM) Lymphocytes # 2.4 K/CMM [1.0-5.5 K/CMM] (12/17/17 12:21 AM) Monocytes # [0.0-0.8 0.8 K/CMM K/CMM] (12/17/17 12:21 AM) Eosinophils # 0.2 K/CMM [0.0-0.5 K/CMM] (12/17/17 12:21 AM) Basophils # [0.0-0.2 0.1 K/CMM K/CMM] (12/17/17 12:21 AM) RBC Morph Normal (12/17/17 12:21 AM) Immunizations No data available for this section Procedures Procedure Date Related Diagnosis Body Site Status Cholecystectomy Completed Tubal ligation Completed Social History Social History Type Response Sexual [...] Days No; Reg Smoking Cessation Counseling No entered on: 12/16/17 Assessment and Plan No data available for this section
[2018-06-30 10:16] LABS: BASOPHILS # (AUTO) 0.1 (0.0-0.1); BASOPHILS % 0.3 % (0.0-1.0); EOSINOPHILS # (AUTO) 0.1 (0.0-0.4); EOSINOPHILS % 0.9 % (0.0-6.0); HEMATOCRIT 36.9 % (34.2-44.1); HEMOGLOBIN 12.3 g/dL (12.0-16.0); LYMPHOCYTES # (AUTO) 3.3 (1.0-3.2); LYMPHOCYTES % 22.7 % (18.0-39.1); MEAN CORPUSCULAR HGB CONC 33.3 g/dL (31-35); MONOCYTES # (AUTO) 0.7 (0.2-0.8); MONOCYTES % 4.9 % (4.4-11.3); NEUTROPHILS # (AUTO) 9.9 (2.1-6.9); PLATELET COUNT 260 x10e3/uL (140-360); RED BLOOD COUNT 4.24 x10e6/uL (3.6-5.1); RED CELL DISTRIBUTION WIDTH 15.7 % (11.7-14.4)
[2018-06-30] MEDS: ASPIRIN 81 MG CHEW TAB PO ONE ×2 (10:24→10:40)
--- NOTE | 2018-06-30 10:38 | Diagnostic Imaging Report ---
EXAMINATION: CHEST 2 VIEWS INDICATION: Chest pain. COMPARISON: None FINDINGS: TUBES and LINES: None. LUNGS: Lungs are well inflated. Mild bilateral perihilar, peribronchial thickening. There is no evidence of pneumonia or pulmonary edema. PLEURA: No pleural effusion or pneumothorax. HEART AND MEDIASTINUM: The cardiomediastinal silhouette is unremarkable. BONES AND SOFT TISSUES: No acute osseous lesion. Soft tissues are unremarkable. UPPER ABDOMEN: No free air under the diaphragm. IMPRESSION: No acute thoracic abnormality. Signed by: Dr. Carolyne Barakat M.D. on 06/30/2018 10:34 AM
[2018-06-30 10:59] LABS: ALANINE AMINOTRANSFERASE 12 IU/L (0-55); ALBUMIN 3.5 g/dL (3.5-5.0); ALBUMIN/GLOBULIN RATIO 1.1 (0.8-2.0); ALKALINE PHOSPHATASE 52 IU/L (40-150); ANION GAP 13.4 mmol/L (8-16); BLOOD UREA NITROGEN 13 mg/dL (7-26); BUN/CREATININE RATIO 21 (6-25); CARBON DIOXIDE 23 mmol/L (22-29); CHLORIDE 103 mmol/L (98-107); CREATINE KINASE 25 IU/L (29-168); CREATININE, SERUM 0.62 mg/dL (0.57-1.11); EST GLOMERULAR FILTRATION RATE > 60 ML/MIN (60-); GLUCOSE 103 mg/dL (74-118); POTASSIUM 3.4 mmol/L (3.5-5.1); SODIUM 136 mmol/L (136-145)
[2018-06-30 13:42] LABS: BAND NEUTROPHILS % (MANUAL) 1 %; EOSINOPHILS % (MANUAL) 3 % (0-7); LYMPHOCYTES % (MANUAL) 22 % (19-48); MONOCYTES % (MANUAL) 7 % (3.4-9.0); NEUTROPHILS % (MANUAL) 67 % (40-74); PLATELET ESTIMATE ADEQUATE; PLATELET MORPHOLOGY COMMENT NORMAL; RBC MORPHOLOGY COMMENT NORMAL
== END 2018-06-30 12:00 | disposition home or self-care (01) ==
LOC: ER 09:23
DX: R07.89 Other chest pain (principal); M06.9 Rheumatoid arthritis, unspecified
CPT/HCPCS: 36415; 71046; 80053; 82550; 82553; 84484; 85025; 93005; 99283

== ENCOUNTER 2018-08-24 21:12 | Emergency (ER) | payer OTHER ==
[~2018-08-24] VITALS: Ht 160 cm; Wt 88.9 kg
--- OUTSIDE RECORDS SUMMARY | 2018-08-24 21:17 | XMS REPORT | Continuity of Care Document ---
Author Author [facility] Interface Address Unknown Phone Unavailable Problems Problem Status Onset Date Classification Date Reported Comments Source SOB Active 06/19/2018 [facility] Chronic joint pain 12/17/2017 12/20/2017 [facility] BODY ACHES Active 12/16/2017 [facility] Discharge Diagnosis: Upper extremity pain 07/26/2017 07/29/2017 [facility] Discharge Diagnosis: Lower extremity pain, bilateral 07/26/2017 07/29/2017 [facility] Discharge Diagnosis: Acute neck pain 07/08/2017 07/11/2017 [facility] Discharge Diagnosis: Acute joint pain 07/08/2017 07/11/2017 [facility] Discharge Diagnosis: Chest pain, atypical 07/08/2017 07/11/2017 [facility] CHEST/JAW PAIN Active 07/08/2017 [facility] Discharge Diagnosis: Atypical chest pain 05/17/2017 05/20/2017 [facility] Discharge Diagnosis: Headache 05/17/2017 05/20/2017 [facility] BACK PAIN Active 05/16/2017 [facility] HEADACHE / CHEST PAIN Active 04/25/2017 [facility] HAND/FOOT PAIN Active 04/03/2017 [facility] Discharge Diagnosis: Chest wall pain 08/14/2016 08/17/2016 [facility] CHEST PAIN Active 08/14/2016 [facility] Discharge Diagnosis: Abdominal pain 03/24/2016 03/28/2016 [facility] SEVERE ABD PAIN Active 03/24/2016 [facility] Discharge Diagnosis: Cough 12/19/2015 2015 [facility] Discharge Diagnosis: Wheezing 12/19/2015 2015 [facility] COUGH Active 12/19/2015 [facility] Discharge Diagnosis: Muscle strain 12/06/2013 12/08/2013 [facility] LEFT SIDE PAIN Active 12/06/2013 [facility] Discharge Diagnosis: Upper respiratory infection 11/17/2013 11/19/2013 [facility] MRSA<sup>1, 2</sup> Active 12/02/2012 Problem 12/20/2017 Problem added by Discern Expert. [facility] ABSCESS Active 11/30/2012 [facility] MRSA<sup>1</sup> Active Problem 12/04/2012 1Problem added by Discern Expert. [facility] Acute anxiety Resolved Problem 12/20/2017 [facility] Hypochondriacal disorder Resolved Problem 12/20/2017 [facility] Medications Medication Details Route Status Patient Instructions Ordering Provider Order Date Source Acetaminophen 325 MG / Hydrocodone Bitartrate 10 MG Oral Tablet [[place] 10/325] 1 tab, Route: PO, Drug Form: TAB, Dosing Weight 73.182, kg, ONCE, STAT, Start date: 12/17/17 0:13:00 CDT, Stop date: 12/17/17 0:13:00 CDT Inactive 12/17/2017 [facility] Dexamethasone 8 mg, Route: IM, ONCE, Dosing Weight 73.182, kg, Priority: STAT, Start date: 12/17/17 0:13:00 CDT, Stop date: 12/17/17 0:13:00 CDT Inactive 12/17/2017 [facility] {21 (Methylprednisolone 4 MG Oral Tablet [Medrol]) } Pack [Medrol Dosepak] See Instructions, PO, Take by mouth as directed on label., # 1 Pack, 0 Refill(s) Active 07/26/2017 [facility] gabapentin 300 MG Oral Capsule 300 mg=1 cap, PO, TID, Day 1: 1 cap daily; Day 2: 1 cap BID, Day 3 and later: 1 cap TID, # 42 cap, 0 Refill(s) Active 07/26/2017 [facility] Ketorolac 15 mg, Route: IVP, Drug form: INJ, ONCE, Dosing Weight 85.909, kg, Priority: STAT, Start date: 07/26/17 6:47:00 MANAGER [employer] DIRECT[employer], Stop date: 07/26/17 6:47:00 MANAGER E[employer] DIRECTOR Inactive 07/26/2017 [facility] Hydromorphone 1 mg, Route: IVP, ONCE, Dosing Weight 85.909, kg, Priority: STAT, Start date: 07/26/17 6:40:00 MANAGER E[employer]MER [employer]ER[employer] DIRECTOR, Stop date: 07/26/17 6:40:00 MANAGER E[employer]MER [employer]ER[employer] DIRECTOR Inactive 07/26/2017 [facility] gabapentin 300 mg, Route: PO, ONCE, Dosing Weight 85.909, kg, Start date: 07/26/17 3:43:00 MANAGER E[employer]MER [employer]ER[employer] DIRECTOR, Stop date: 07/26/17 3:43:00 MANAGER E[employer]MER [employer]ER[employer] DIRECTOR Inactive 07/26/2017 [facility] Valium 5 mg, Route: PO, ONCE, Dosing Weight 85.909, kg, Priority: STAT, Start date: 07/26/17 3:42:00 MANAGER E[employer]MER [employer]ER[employer] DIRECTOR, Stop date: 07/26/17 3:42:00 MANAGER EMB[employer]MER [employer]ER[employer] DIRECTOR Inactive 07/26/2017 [facility] Tramadol 50 mg, 1 tab, Route: PO, Drug form: TAB, ONCE, Dosing Weight 89.091, kg, > 50 kg, Priority: STAT, Start date: 07/08/17 14:52:00 MANAGER E[employer]MER [employer]ER[employer] DIRECTOR, Stop date: 07/08/17 14:52:00 CSTNotes: Not to exceed 400mg/day. (S isis As: Ultram) Inactive 07/08/2017 [facility] Ketorolac 15 mg, 0.5 mL, Route: IVP, Drug form: INJ, ONCE, Dosing Weight 89.091, kg, Priority: STAT, Start date: 07/08/17 11:18:00 MANAGER E[employer]MER [employer]ER[employer] DIRECTOR, Stop date: 07/08/17 11:18:00 CSTNotes: (Same as:Toradol) IV bolus must be given >15 seconds. Give IM administration slowly and deeply into the muscle. Not for use > 4 days MEDICATION WASTE Product Size: 30 mg Product Wasted: ___ mg Inactive 07/08/2017 [facility] Saline Flush 0.9% 10 mL, Route: IVP, Drug Form: INJ, Dosing Weight 89.091, kg, PRN, PRN Line Flush, Start date: 07/08/17 11:17:00 MANAGER E[employer]MER [employer]ER[employer] DIRECTOR, Duration: 30 day, Stop date: 08/07/17 11:16:00 CSTNotes: (Same as: BD Posiflush) Inactive 07/08/2017 [facility] Diazepam 5 MG Oral Tablet [Valium] 5 mg=1 tab, PO, Q8H, PRN Muscle Spasms, X 5 day, # 15 tab, 0 Refill(s) Active 05/17/2017 [facility] Ketorolac 15 mg, Route: IVP, Drug form: INJ, ONCE, Dosing Weight 87.273, kg, Priority: STAT, Start date: 05/17/17 0:24:00 CDT, Stop date: 05/17/17 0:24:00 CDT Inactive 05/17/2017 [facility] Diphenhydramine 25 mg, Route: IVP, ONCE, Dosing Weight 87.273, kg, Priority: STAT, Start date: 05/16/17 23:35:00 CDT, Stop date: 05/16/17 23:35:00 CDT Inactive 05/17/2017 [facility] Metoclopramide 10 mg, Route: IVP, Drug form: INJ, ONCE, Dosing Weight 87.273, kg, Priority: STAT, Start date: 05/16/17 23:35:00 CDT, Stop date: 05/16/17 23:35:00 CDT Inactive 05/17/2017 [facility] Sodium Chloride 0.9% (Bolus) IV 1,000 mL, Infuse Over: 1 hr, Route: IV, ONCE, Priority: STAT, Dosing Weight 87.273 kg, Start date: 05/16/17 23:35:00 CDT, Duration: 1 doses or times, Stop date: 05/16/17 23:35:00 CDT No Longer Active 05/17/2017 [facility] Sodium Chloride 0.9% (Bolus) IV 1,000 mL, Infuse Over: 1 hr, Route: IV, ONCE, Priority: STAT, Dosing Weight 87.273 kg, Start date: 05/16/17 23:09:00 CDT, Duration: 1 doses or times, Stop date: 05/16/17 23:09:00 CDT Inactive 05/17/2017 [facility] Reglan 10 mg, 2 mL, Route: IVP, Drug form: INJ, ONCE, Dosing Weight 86.364, kg, Priority: STAT, Start date: 04/25/17 15:09:00 CDT, Stop date: 04/25/17 15:09:00 CDTNotes: (Same as: Reglan) Inactive 04/25/2017 [facility] NS (Bolus) IV 1,000 mL, 1,000 ml/hr, Infuse Over: 1 hr, Route: IV, 1,000, Drug form: INJ, ONCE, Priority: STAT, Dosing Weight 86.364 kg, Start date: 04/25/17 15:09:00 CDT, Duration: 1 doses or times, Stop date: 15:09:00 CDT Inactive 04/25/2017 [facility] ketOROLAC 15 mg/mL injectable solution 15 mg, 0.5 mL, Route: IVP, Drug form: INJ, ONCE, Dosing Weight 86.364, kg, Priority: STAT, Start date: 04/25/17 15:09:00 CDT, Stop date: 04/25/17 15:09:00 CDTNotes: (Same as:Toradol) IV bolus must be given >15 seconds. Give IM administration slowly and deeply into the muscle. Not for use > 4 days MEDICATION WASTE Product Size: 30 mg Product Wasted: ___ mg Inactive 04/25/2017 [facility] Dexamethasone 10 mg, 2.5 mL, Route: IVP, Drug form: INJ, ONCE, Dosing Weight 86.364, kg, Priority: STAT, Start date: 04/25/17 15:09:00 CDT, Stop date: 04/25/17 15:09:00 CDT Inactive 04/25/2017 [facility] Benadryl 25 mg, 0.5 mL, Route: IVP, Drug form: INJ, ONCE, Dosing Weight 86.364, kg, Priority: STAT, Start date: 04/25/17 15:09:00 CDT, Stop date: 04/25/17 15:09:00 CDTNotes: (Same as: Benadryl) Inactive 04/25/2017 [facility] Saline Flush 0.9% 10 mL, Route: IVP, Drug Form: INJ, Dosing Weight 81.818, kg, PRN, PRN Line Flush, Start date: 04/25/17 12:04:00 CDT, Duration: 30 day, Stop date: 05/25/17 12:03:00 CDTNotes: Same as: BD Posiflush Sterile Inactive 04/25/2017 [facility] tramadol hydrochloride 50 MG Oral Tablet [Ultram] 100 mg=2 tab, PO, Q6H, PRN pain, X 3 day, # 24 tab, 0 Refill(s) Active 08/14/2016 [facility] 200 ACTUAT Albuterol 0.09 MG/ACTUAT Metered Dose Inhaler 2 puff, INHALATION, Q4H, PRN for wheezing, # 9 gm, 0 Refill(s) Inactive 08/14/2016 [facility] predniSONE 20 mg oral tablet 60 mg=3 tab, PO, Daily, Take 3 tablets for 60 mg dose, X 3 day, # 9 tab, 0 Refill(s) Inactive 08/14/2016 [facility] ketOROLAC 30 mg/mL injectable solution 30 mg, Route: IV, ONCE, Dosing Weight 81.818, kg, Start date: 08/14/16 7:30:00 MANAGER E[employer]MER [employer]ER[employer] DIRECTOR, Stop date: 08/14/16 7:30:00 MANAGER EMBALMER [employer]ERAL DIRECTOR Inactive 08/14/2016 [facility] Sodium Chloride 0.154 MEQ/ML Injectable Solution 1,000 mL, 1,000 ml/hr, Infuse Over: 1 hr, Route: IV, ONCE, Priority: STAT, Dosing Weight 81.818 kg, Start date: 08/14/16 7:30:00 MANAGER E[employer]MER [employer]ER[employer] DIRECTOR, Duration: 1 doses or times, Stop date: 08/14/16 7:30:00 MANAGER E[employer]MER [employer]ER[employer] DIRECTOR Inactive 08/14/2016 [facility] Zofran 4 mg, Route: IVP, Drug form: INJ, ONCE, Dosing Weight 81.818, kg, Priority: STAT, Start date: 08/14/16 7:30:00 MANAGER EMBALMER [employer]ERAL DIRECTOR, Stop date: 08/14/16 7:30:00 MANAGER EMBALMER [employer]ERAL DIRECTOR Inactive 08/14/2016 [facility] Saline Flush 0.9% 10 mL, Route: IVP, Drug Form: INJ, Dosing Weight 81.818, kg, PRN, PRN Line Flush, Start date: 08/14/16 7:23:00 MANAGER E[employer]ALMER [employer]ERAL DIRECTOR, Duration: 30 day, Stop date: 09/13/16 7:22:00 MANAGER EMB[employer]MER [employer]ERAL DIRECTOR Inactive 08/14/2016 [facility] Ondansetron 4 MG Disintegrating Tablet [Zofran] 4 mg=1 tab, PO, BID, PRN Nausea and Vomiting, Dissolve tab under tongue, X 4 day, # 8 tab, 0 Refill(s) Active 03/25/2016 [facility] tramadol hydrochloride 50 MG Oral Tablet [Ultram] 100 mg=2 tab, PO, Q6H, PRN pain, X 5 day, # 40 tab, 0 Refill(s) Active 03/25/2016 [facility] Metronidazole 500 MG Oral Tablet [Flagyl] 500 mg=1 tab, PO, BID, X 7 day, # 14 tab, 0 Refill(s) Active 03/25/2016 [facility] Ciprofloxacin 500 MG Oral Tablet [Cipro] 500 mg=1 tab, PO, Q12H, X 7 day, # 14 tab, 0 Refill(s) Active 03/25/2016 [facility] Dilaudid 0.5 mg, Route: IV, ONCE, Dosing Weight 81.818, kg, Start date: 03/24/16 23:54:00 CDT, Stop date: 03/24/16 23:54:00 CDT No Longer Active 03/25/2016 [facility] Ondansetron 4 mg, 2 mL, Route: IVP, Drug form: INJ, ONCE, Dosing Weight 81.818, kg, Priority: STAT, Start date: 03/24/16 21:10:00 CDT, Stop date: 03/24/16 21:10:00 CDTNotes: (Same as: Zofran) MEDICATION WASTE Product Size: 4 mg Product Wasted: ___ mg Inactive 03/25/2016 [facility] Morphine 4 mg, 2 mL, Route: IVP, Drug form: INJ, ONCE, Dosing Weight 81.818, kg, Priority: STAT, Start date: 03/24/16 21:10:00 CDT, Stop date: 03/24/16 21:10:00 CDTNotes: (Same as:MORPhine Sulfate) Inactive 03/25/2016 [facility] Saline Flush 0.9% 10 mL, Route: IVP, Drug Form: INJ, Dosing Weight 81.818, kg, PRN, PRN Line Flush, Start date: 03/24/16 21:10:00 CDT, Duration: 30 day, Stop date: 04/23/16 21:09:00 CDTNotes: (Same as: BD Posiflush) No Longer Active 03/25/2016 [facility] Sodium Chloride 0.154 MEQ/ML Injectable Solution 1,000 mL, 2,000 ml/hr, Infuse Over: 30 minutes, Route: IV, 1,000, Drug form: INJ, ONCE, Priority: STAT, Dosing Weight 81.818 kg, Start date: 03/24/16 21:10:00 CDT, Duration: 1 doses or times, Stop date: 03/24/16 21:10:00 CDT Inactive 03/25/2016 [facility] 200 ACTUAT Albuterol 0.09 MG/ACTUAT Metered Dose Inhaler [Proventil] 2 puff, INHALATION, QID, PRN for wheezing, use with spacer chamber, # 25 gm, 0 Refill(s) Active 12/19/2015 [facility] predniSONE 20 mg oral tablet 60 mg=3 tab, PO, Daily, X 4 day, # 12 tab, 0 Refill(s) Active 12/19/2015 [facility] Prednisone 60 mg, 6 tab, Route: PO, Drug form: TAB, ONCE, Dosing Weight 77.273, kg, Priority: STAT, Start date: 12/19/15 9:11:00 CDT, Stop date: 12/19/15 9:11:00 CDTNotes: (Same as: PredniSONE) Take with food. Inactive 12/19/2015 [facility] Albuterol 0.833 MG/ML / Ipratropium [place] 0.167 MG/ML Inhalant Solution [DuoNeb] 3 ml, Route: NEB, Drug Form: SOLN, Dosing Weight 77.273, kg, PRN, PRN Respiratory Protocol, Start date: 12/19/15 9:11:00 CDT, Duration: 30 day, Stop date: 01/18/16 9:10:00 CDTNotes: (Same as: Duoneb) Inactive 12/19/2015 [facility] 24 HR tramadol hydrochloride 100 MG Extended Release Tablet [Ultram] 100 mg=1 tab, PO, Daily, # 15 tab, 0 Refill(s) Active 12/06/2013 [facility] Flexeril 10 mg, Route: PO, ONCE, Dosing Weight 81.818, kg, Priority: STAT, Start date: 12/06/13 10:58:00, Stop date: 12/06/13 10:58:00 Inactive 12/06/2013 [facility] tramadol hydrochloride 50 MG Oral Tablet 50 mg=1 tab, PO, Q4H, Pain, # 60 tab, 0 Refill(s) Active 11/17/2013 [facility] benzonatate 200 MG Oral Capsule [Tessalon] 200 mg=1 cap, PO, TID, # 21 cap, 0 Refill(s) Active 11/17/2013 [facility] predniSONE 20 mg oral tablet 60 mg=3 tab, PO, Daily, Take 3 tablets for 60 mg dose, # 15 tab, 0 Refill(s)Special Instructions: Take 3 tablets for 60 mg dose Active 11/17/2013 [facility] Albuterol 0.83 MG/ML Inhalant Solution 2.49 mg, Route: NEB, ONCE, Dosing Weight 90.909, kg, Priority: STAT, Start date: 11/17/13 13:45:00, Stop date: 11/17/13 13:45:00 Inactive 11/17/2013 [facility] Acetaminophen 325 MG / Hydrocodone Bitartrate 10 MG Oral Tablet 1 tab, Route: PO, Dosing Weight 90.909, kg, ONCE, STAT, Start date: 11/17/13 13:45:00, Stop date: 11/17/13 13:45:00 Inactive 11/17/2013 [facility] Azithromycin 5 Day Dose Pack 250 mg oral tablet 500 mg=2 tab, PO, ONCE, TAKE 2 TABLETS ON DAY ONE ONLY, # 2 tab, 0 Refill(s)Special Instructions: TAKE 2 TABLETS ON DAY ONE ONLY Active 11/17/2013 [facility] [place] 5/325 oral tablet 1-2 tab, PO, Q4-6H, PRN, 30 tab, Pain, Substitution Allowed, Maintenance PO Active [place] 12/02/2012 [facility] clindamycin 150 mg oral capsule 300 mg, 2 cap, PO, Q6H, 80 cap, Substitution Allowed, CAP PO Active [place] 12/02/2012 [facility] clindamycin 600 mg, 4 mL, Route: IM, Drug form: INJ, ONCE, Dosing Weight 81.818, kg, Priority: STAT, Start date: 12/02/12 11:17:00, Stop date: 12/02/12 11:17:00 IM No Longer Active [place] 12/02/2012 [facility] [place] 7.5/325 oral tablet 1 tab, Route: PO, Dosing Weight 81.818, kg, ONCE, Start date: 12/02/12 9:26:00, Stop date: 12/02/12 9:26:00 PO No Longer Active [place] 12/02/2012 [facility] Allergies, Adverse Reactions, Alerts Substance Category Reaction Severity Reaction type Status Date Reported Comments Source penicillins Assertion Drug allergy Active [facility] Immunizations Immunization Date Given Site Status Last Updated Comments Source Results Order Name Results Value Reference Range Date Interpretation Comments Source Chest 1view DX Chest 1view DX Patient Name: CARLOS KENDRICK : 1970; Age: 47 years y/o Female MR: [id number] Study: Chest 1view DX 06/19/2018 8:32 AM 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 No focal consolidation, pleural effusion or pneumothorax. The cardiac silhouette is within normal limits. Midline trachea. No acute osseous abnormalities. IMPRESSION: Clear lungs. SL: [id number] 06/19/2018 - - Read by: Hai Marte Dictated Date/time: 06/19/18 08:50 Electronically Signed by: Hai Marte 06/19/18 08:51 FINAL REPORT [facility]INE [facility] STOOL UA Sq Epi Occasional /LPF Few /LPF 12/17/2017 [facility] RBC 1 /HPF 0 - 2 12/17/2017 [facility] WBC null 0 - 5 12/17/2017 [facility] Mucus Few /LPF None Seen /LPF 12/17/2017 [facility]A CaOx Peggy Few /HPF None Seen /HPF 12/17/2017 [facility] Leuk Est Negative (12/17/17 1:12 AM) Negative 12/17/2017 [facility]A Urobilinogen 0.2 EU/dL 0.1 - 1.0 12/17/2017 [facility]A Nitrite Negative (12/17/17 1:12 AM) Negative 12/17/2017 [facility] Blood Trace *ABN* (12/17/17 1:12 AM) Negative 12/17/2017 [facility]A Color Yellow *NA* (12/17/17 1:12 AM) Yellow 12/17/2017 [facility]A Turbidity Clear (12/17/17 1:12 AM) Clear 12/17/2017 [facility]A Glucose Negative (12/17/17 1:12 AM) Negative 12/17/2017 [facility] STOOL UA Ketones Negative *NA* (12/17/17 1:12 AM) Negative 12/17/2017 [facility]INE AND STOOL UA Protein Negative (12/17/17 1:12 AM) Negative 12/17/2017 [facility] URINE AND STOOL UA pH 5.5 5.0 - 8.0 12/17/2017 [facility] URINE AND STOOL UA Bili Negative *NA* (12/17/17 1:12 AM) Negative 12/17/2017 [facility] URINE AND STOOL UA Spec Grav 1.025 <=1.030 12/17/2017 [facility] ELECTROLYTES Sodium Lvl 137 meq/L 135 - 145 12/17/2017 [facility] ELECTROLYTES Creatinine Lvl 0.38 mg/dL 0.50 - 1.40 12/17/2017 [facility] ELECTROLYTES BUN 10 mg/dL 7 - 22 12/17/2017 [facility] ELECTROLYTES Glucose Lvl 118 mg/dL 70 - 99 12/17/2017 [facility] ELECTROLYTES Calcium Lvl 8.7 mg/dL 8.5 - 10.5 12/17/2017 [facility] ELECTROLYTES CO2 25 meq/L 24 - 32 12/17/2017 [facility] ELECTROLYTES Chloride Lvl 103 meq/L 95 - 109 12/17/2017 [facility] ELECTROLYTES Potassium Lvl 3.5 meq/L 3.5 - 5.1 12/17/2017 [facility] ELECTROLYTES eGFR 127 mL/min/1.73m2 12/17/2017 Result Comment: The eGFR is calculated using the [...] from the National Kidney Disease Education Program (NKDEP) which additionally recommends that when the eGFR is used in patients with extremes of body mass index for purposes of drug dosing, the eGFR should be multiplied by the estimated BMI. [facility] ELECTROLYTES AGAP 12.5 meq/L 10.0 - 20.0 12/17/2017 [facility] HEMATOLOGY RDW 17.4 % 11.5 - 14.5 12/17/2017 [facility] HEMATOLOGY MCV 80.5 fL 80.0 - 98.0 12/17/2017 [facility] HEMATOLOGY MCH 26.0 pg 27.0 - 31.0 12/17/2017 [facility] HEMATOLOGY Platelet 505 K/CMM 133 - 450 12/17/2017 [facility] MCHC 32.3 g/dL 32.0 - 36.0 12/17/2017 [facility] HEMATOLOGY MPV 7.7 fL 7.4 - 10.4 12/17/2017 [facility] RBC 3.91 M/CMM 4.20 - 5.40 12/17/2017 [facility] Hgb 10.2 g/dL 12.0 - 16.0 12/17/2017 [facility] WBC 12.5 K/CMM 3.7 - 10.4 12/17/2017 [facility] Hct 31.5 % 36.0 - 48.0 12/17/2017 [facility] Segs-Bands # 9.0 K/CMM 1.5 - 8.1 12/17/2017 [facility] HEMATOLOGY Basophils 0.6 % 0.0 - 1.0 12/17/2017 [facility] Monocytes 6.3 % 2.0 - 12.0 12/17/2017 [facility] Lymphocytes 19.4 % 20.0 - 40.0 12/17/2017 [facility] HEMATOLOGY Eosinophils 1.8 % 0.0 - 4.0 12/17/2017 [facility] Basophils # 0.1 K/CMM 0.0 - 0.2 12/17/2017 [facility] HEMATOLOGY Eosinophils # 0.2 K/CMM 0.0 - 0.5 12/17/2017 [facility] HEMATOLOGY Monocytes # 0.8 K/CMM 0.0 - 0.8 12/17/2017 [facility] Lymphocytes # 2.4 K/CMM 1.0 - 5.5 12/17/2017 [facility] RBC Morph Normal (12/17/17 12:21 AM) 12/17/2017 [facility] HEMATOLOGY Segs 71.9 % 45.0 - 75.0 12/17/2017 [facility] Hgb 10.1 g/dL 12.0 - 16.0 07/26/2017 [facility] HEMATOLOGY RBC 3.57 M/CMM 4.20 - 5.40 07/26/2017 [facility] HEMATOLOGY WBC 8.5 K/CMM 3.7 - 10.4 07/26/2017 [facility] HEMATOLOGY MCV 84.4 fL 80.0 - 98.0 07/26/2017 [facility] HEMATOLOGY Hct 30.2 % 36.0 - 48.0 07/26/2017 [facility] HEMATOLOGY MCH 28.2 pg 27.0 - 31.0 07/26/2017 [facility] HEMATOLOGY MPV 7.7 fL 7.4 - 10.4 07/26/2017 [facility] HEMATOLOGY Platelet 369 K/CMM 133 - 450 07/26/2017 [facility] HEMATOLOGY RDW 13.6 % 11.5 - 14.5 07/26/2017 [facility] HEMATOLOGY MCHC 33.5 g/dL 32.0 - 36.0 07/26/2017 [facility] HEMATOLOGY Basophils # 0.1 K/CMM 0.0 - 0.2 07/26/2017 [facility] HEMATOLOGY Segs-Bands # 5.5 K/CMM 1.5 - 8.1 07/26/2017 [facility] HEMATOLOGY Basophils 0.7 % 0.0 - 1.0 07/26/2017 [facility] HEMATOLOGY Eosinophils # 0.2 K/CMM 0.0 - 0.5 07/26/2017 [facility] HEMATOLOGY Monocytes # 0.5 K/CMM 0.0 - 0.8 07/26/2017 [facility] HEMATOLOGY Lymphocytes # 2.2 K/CMM 1.0 - 5.5 07/26/2017 [facility] HEMATOLOGY Monocytes 6.4 % 2.0 - 12.0 07/26/2017 [facility] HEMATOLOGY Lymphocytes 25.7 % 20.0 - 40.0 07/26/2017 [facility] HEMATOLOGY Segs 65.4 % 45.0 - 75.0 07/26/2017 [facility] HEMATOLOGY Eosinophils 1.8 % 0.0 - 4.0 07/26/2017 [facility] Ext Lower Venous Doppler Bilat US Ext Lower Venous Doppler Bilat US EXAM: US BILATERAL LOWER EXTREMITY VENOUS DOPPLER DATE: 07/26/2017 3:41 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 COMPARISON: None. TECHNIQUE: Multiplanar grayscale, color Doppler and spectral Doppler ultrasound of the bilateral lower extremity veins. FINDINGS: Right Thigh Veins: Common Femoral: Patent. Femoral (SFV): Patent. Popliteal: Patent. Proximal Greater Saphenous: Patent. Deep Femoral Veins: Patent. Left Thigh Veins: Common Femoral: Patent. Femoral (SFV): Patent. Popliteal: Patent. Proximal Greater Saphenous: Patent. Deep Femoral Veins: Patent. Other: 4.5 x 4.1 x 3.1 cm hypoechoic left popliteal lesion without internal vascularity most likely due to Grove's cyst. IMPRESSION: 1. No deep venous thrombosis (DVT) of the visualized bilateral lower extremities. 2. Incidental left Grove's cyst. [place] SECTION: Body 07/26/2017 - - This report was dictated by a Women Nurse/Fellow. I have personally reviewed the images as well as the Resident's interpretation and agree with the findings. Read by: Maxwell Parra MD Resident: Maxwell Parra MD Dictated Date/time: 07/26/17 05:47 Electronically Signed by: Terrance King MD 07/26/17 07:08 FINAL REPORT [facility] CARDIAC ENZYMES Troponin-I null 0.00 - 0.40 07/26/2017 [facility] CHEM PANEL eGFR 123 mL/min/1.73m2 07/26/2017 Result Comment: The eGFR is calculated using the [...] from the National Kidney Disease Education Program (NKDEP) which additionally recommends that when the eGFR is used in patients with extremes of body mass index for purposes of drug dosing, the eGFR should be multiplied by the estimated BMI. [facility] CHEM PANEL Calcium Lvl 8.8 mg/dL 8.5 - 10.5 07/26/2017 [facility] CHEM PANEL AGAP 15.4 meq/L 10.0 - 20.0 07/26/2017 [facility] CHEM PANEL CO2 23 meq/L 24 - 32 07/26/2017 [facility] CHEM PANEL Chloride Lvl 102 meq/L 95 - 109 07/26/2017 [facility] CHEM PANEL Potassium Lvl 4.4 meq/L 3.5 - 5.1 07/26/2017 [facility] CHEM PANEL Creatinine Lvl 0.42 mg/dL 0.50 - 1.40 07/26/2017 [facility] CHEM PANEL Glucose Lvl 104 mg/dL 70 - 99 07/26/2017 [facility] CHEM PANEL Sodium Lvl 136 meq/L 135 - 145 07/26/2017 [facility] CHEM PANEL BUN 8 mg/dL 7 - 22 07/26/2017 [facility] CARDIAC ENZYMES Troponin-I null 0.00 - 0.40 07/08/2017 [facility] CARDIAC ENZYMES CK MB 1.2 ng/mL 0.5 - 3.6 07/08/2017 [facility] CARDIAC ENZYMES CK MB Index 1.6 0.0 - 2.5 07/08/2017 [facility] CARDIAC ENZYMES Troponin-I null 0.00 - 0.40 07/08/2017 [facility] CARDIAC ENZYMES Total CK 73 unit/L 12 - 191 07/08/2017 [facility] PANEL Globulin 4.5 g/dL 2.7 - 4.2 07/08/2017 [facility] PANEL A/G Ratio 0.7 0.7 - 1.6 07/08/2017 [facility] PANEL eGFR 129 mL/min/1.73m2 07/08/2017 Result Comment: The eGFR is calculated using the [...] from the National Kidney Disease Education Program (NKDEP) which additionally recommends that when the eGFR is used in patients with extremes of body mass index for purposes of drug dosing, the eGFR should be multiplied by the estimated BMI. [facility] CHEM PANEL Creatinine Lvl 0.36 mg/dL 0.50 - 1.40 07/08/2017 [facility] CHEM PANEL Sodium Lvl 141 meq/L 135 - 145 07/08/2017 [facility] CHEM PANEL Calcium Lvl 8.2 mg/dL 8.5 - 10.5 07/08/2017 [facility] CHEM PANEL Total Protein 7.7 g/dL 6.4 - 8.4 07/08/2017 [facility] CHEM PANEL Albumin Lvl 3.2 g/dL 3.5 - 5.0 07/08/2017 [facility] CHEM PANEL Glucose Lvl 98 mg/dL 70 - 99 07/08/2017 [facility] CHEM PANEL BUN 6 mg/dL 7 - 22 07/08/2017 [facility] CHEM PANEL Alk Phos 98 unit/L 39 - 136 07/08/2017 [facility] CHEM PANEL Bili Total 0.3 mg/dL 0.2 - 1.3 07/08/2017 [facility] CHEM PANEL AGAP 12.5 meq/L 10.0 - 20.0 07/08/2017 [facility] CHEM PANEL Potassium Lvl 3.5 meq/L 3.5 - 5.1 07/08/2017 [facility] CHEM PANEL Chloride Lvl 106 meq/L 95 - 109 07/08/2017 [facility] CHEM PANEL CO2 26 meq/L 24 - 32 07/08/2017 [facility] CHEM PANEL AST 84 unit/L 0 - 37 07/08/2017 [facility] CHEM PANEL ALT 80 unit/L 0 - 65 07/08/2017 [facility] CHEM PANEL B/C Ratio 17 6 - 25 07/08/2017 [facility] HEMATOLOGY Eosinophils # 0.1 K/CMM 0.0 - 0.5 07/08/2017 [facility] HEMATOLOGY Basophils # 0.1 K/CMM 0.0 - 0.2 07/08/2017 [facility] HEMATOLOGY Eosinophils 1.4 % 0.0 - 4.0 07/08/2017 [facility] HEMATOLOGY Segs 79.6 % 45.0 - 75.0 07/08/2017 [facility] HEMATOLOGY Monocytes 4.5 % 2.0 - 12.0 07/08/2017 [facility] HEMATOLOGY Lymphocytes 13.9 % 20.0 - 40.0 07/08/2017 [facility] HEMATOLOGY Monocytes # 0.5 K/CMM 0.0 - 0.8 07/08/2017 [facility] HEMATOLOGY Lymphocytes # 1.5 K/CMM 1.0 - 5.5 07/08/2017 [facility] HEMATOLOGY Basophils 0.6 % 0.0 - 1.0 07/08/2017 [facility] HEMATOLOGY Segs-Bands # 8.5 K/CMM 1.5 - 8.1 07/08/2017 [facility] HEMATOLOGY MPV 8.6 fL 7.4 - 10.4 07/08/2017 [facility] HEMATOLOGY Platelet 371 K/CMM 133 - 450 07/08/2017 [facility] HEMATOLOGY RDW 13.2 % 11.5 - 14.5 07/08/2017 [facility] HEMATOLOGY RBC 4.10 M/CMM 4.20 - 5.40 07/08/2017 [facility] HEMATOLOGY Hgb 12.3 g/dL 12.0 - 16.0 07/08/2017 [facility] HEMATOLOGY WBC 10.7 K/CMM 3.7 - 10.4 07/08/2017 [facility] MCH 29.9 pg 27.0 - 31.0 07/08/2017 [facility] HEMATOLOGY Hct 35.5 % 36.0 - 48.0 07/08/2017 [facility] HEMATOLOGY MCV 86.7 fL 80.0 - 98.0 07/08/2017 [facility] MCHC 34.5 g/dL 32.0 - 36.0 07/08/2017 [facility] Chest 1view DX Chest 1view DX Clinical Indication: - evaluate chest pressure. Comparison: Chest radiograph 05/16/2017 Findings: Frontal view of the chest was obtained. Electrocardiogram leads overlie the chest. The cardiac silhouette is normal. There is no lobar consolidation, effusion or edema. No pneumothorax. No acute osseous abnormality. IMPRESSION: No acute cardiopulmonary abnormality. SL: [id number] 07/08/2017 - - Read by: Trini Cortez MD Dictated Date/time: 07/08/17 12:02 Electronically Signed by: Trini Cortez MD 07/08/17 12:02 FINAL REPORT [facility] URINE AND STOOL UA Urobilinogen <=1.0 mg/dL 0.1 - 1.0 05/17/2017 [facility] URINE AND STOOL UA Color Ltyellow 05/17/2017 [facility] URINE AND STOOL UA Leuk Est Negative (05/16/17 11:10 PM) Negative 05/17/2017 [facility] URINE AND STOOL UA Sq Epi Occasional /LPF Few /LPF 05/17/2017 [facility] URINE AND STOOL UA WBC 3 /HPF 0 - 5 05/17/2017 [facility] URINE AND STOOL UA RBC 15 /HPF 0 - 2 05/17/2017 [facility] URINE AND STOOL UA Nitrite Negative (05/16/17 11:10 PM) Negative 05/17/2017 [facility] URINE AND STOOL UA Bacteria Occasional /HPF None Seen /HPF 05/17/2017 [facility] URINE AND STOOL UA Ketones Negative mg/dL Negative mg/dL 05/17/2017 [facility] URINE AND STOOL UA pH 5.0 5.0 - 8.0 05/17/2017 [facility] URINE AND STOOL UA Protein Negative mg/dL Negative mg/dL 05/17/2017 [facility] URINE AND STOOL UA Blood Large *ABN* (05/16/17 11:10 PM) Negative 05/17/2017 [facility] URINE AND STOOL UA Bili Negative *NA* (05/16/17 11:10 PM) Negative 05/17/2017 [facility] URINE AND STOOL UA Spec Grav 1.011 <=1.030 05/17/2017 [facility] URINE AND STOOL UA Glucose Negative mg/dL Negative mg/dL 05/17/2017 [facility] URINE AND STOOL UA Turbidity Clear (05/16/17 11:10 PM) Clear 05/17/2017 [facility] URINE CHEM U Preg Negative (05/16/17 11:10 PM) Negative 05/17/2017 [facility] CARDIAC ENZYMES Total CK 39 unit/L 12 - 191 05/17/2017 [facility] CARDIAC ENZYMES CK MB 0.5 ng/mL 0.5 - 3.6 05/17/2017 [facility] CARDIAC ENZYMES Troponin-I null 0.00 - 0.40 05/17/2017 [facility] CARDIAC ENZYMES CK MB Index 1.3 0.0 - 2.5 05/17/2017 [facility] CHEM PANEL Magnesium Lvl 2.0 mg/dL 1.8 - 2.4 05/17/2017 [facility] CHEM PANEL Phosphorus 3.4 mg/dL 2.5 - 4.5 05/17/2017 [facility] CHEM PANEL eGFR 112 mL/min/1.73m2 05/17/2017 Result Comment: The eGFR is calculated using the [...] from the National Kidney Disease Education Program (NKDEP) which additionally recommends that when the eGFR is used in patients with extremes of body mass index for purposes of drug dosing, the eGFR should be multiplied by the estimated BMI. [facility] CHEM PANEL CO2 26 meq/L 24 - 32 05/17/2017 [facility] CHEM PANEL ALT 19 unit/L 0 - 65 05/17/2017 [facility] CHEM PANEL Alk Phos 59 unit/L 39 - 136 05/17/2017 [facility] CHEM PANEL Bili Total 0.2 mg/dL 0.2 - 1.3 05/17/2017 [facility] CHEM PANEL AGAP 10.9 meq/L 10.0 - 20.0 05/17/2017 [facility] CHEM PANEL Albumin Lvl 3.6 g/dL 3.5 - 5.0 05/17/2017 [facility] CHEM PANEL Calcium Lvl 8.4 mg/dL 8.5 - 10.5 05/17/2017 [facility] CHEM PANEL AST 12 unit/L 0 - 37 05/17/2017 [facility] CHEM PANEL Total Protein 7.3 g/dL 6.4 - 8.4 05/17/2017 [facility] CHEM PANEL A/G Ratio 1.0 0.7 - 1.6 05/17/2017 [facility] CHEM PANEL B/C Ratio 18 6 - 25 05/17/2017 [facility] CHEM PANEL Globulin 3.7 g/dL 2.7 - 4.2 05/17/2017 [facility] CHEM PANEL Chloride Lvl 104 meq/L 95 - 109 05/17/2017 [facility] CHEM PANEL Sodium Lvl 137 meq/L 135 - 145 05/17/2017 [facility] CHEM PANEL Potassium Lvl 3.9 meq/L 3.5 - 5.1 05/17/2017 [facility] CHEM PANEL Creatinine Lvl 0.56 mg/dL 0.50 - 1.40 05/17/2017 [facility] CHEM PANEL BUN 10 mg/dL 7 - 22 05/17/2017 [facility] CHEM PANEL Glucose Lvl 99 mg/dL 70 - 99 05/17/2017 [facility] HEMATOLOGY MCHC 34.2 g/dL 32.0 - 36.0 05/17/2017 [facility] HEMATOLOGY MCH 30.7 pg 27.0 - 31.0 05/17/2017 [facility] HEMATOLOGY RDW 13.3 % 11.5 - 14.5 05/17/2017 [facility] HEMATOLOGY MPV 8.2 fL 7.4 - 10.4 05/17/2017 [facility] HEMATOLOGY Hgb 13.3 g/dL 12.0 - 16.0 05/17/2017 [facility] HEMATOLOGY RBC 4.32 M/CMM 4.20 - 5.40 05/17/2017 [facility] HEMATOLOGY MCV 89.9 fL 80.0 - 98.0 05/17/2017 [facility] HEMATOLOGY Hct 38.9 % 36.0 - 48.0 05/17/2017 [facility] HEMATOLOGY Platelet 278 K/CMM 133 - 450 05/17/2017 [facility] HEMATOLOGY WBC 10.6 K/CMM 3.7 - 10.4 05/17/2017 [facility] HEMATOLOGY INR 0.90 0.85 - 1.17 05/17/2017 [facility] HEMATOLOGY PT 12.1 s 12.0 - 14.7 05/17/2017 [facility] HEMATOLOGY PTT 26.6 s 22.9 - 35.8 05/17/2017 [facility] HEMATOLOGY Eosinophils # 0.2 K/CMM 0.0 - 0.5 05/17/2017 [facility] HEMATOLOGY Monocytes # 0.7 K/CMM 0.0 - 0.8 05/17/2017 [facility] HEMATOLOGY Basophils 0.3 % 0.0 - 1.0 05/17/2017 [facility] Eosinophils 2.2 % 0.0 - 4.0 05/17/2017 [facility] HEMATOLOGY Segs-Bands # 6.5 K/CMM 1.5 - 8.1 05/17/2017 [facility] Monocytes 6.6 % 2.0 - 12.0 05/17/2017 [facility] HEMATOLOGY Lymphocytes 29.5 % 20.0 - 40.0 05/17/2017 [facility] HEMATOLOGY Segs 61.4 % 45.0 - 75.0 05/17/2017 [facility] Lymphocytes # 3.1 K/CMM 1.0 - 5.5 05/17/2017 [facility] Brain wo contrast CT Brain wo contrast CT CT BRAIN WITHOUT CONTRAST INDICATION: Headache, ct dlp; 981.65mGy-cm, - headache--Here with c/o chest pain, headache, and pain down left arm. Started today. COMPARISON: None DISCUSSION: There is no evidence of acute vascular insults, space occupying lesions, hemorrhage, hydrocephalus, midline shift, or extra-axial fluid collections. The calvarium is intact. IMPRESSION: No acute intracranial abnormalities are visualized. SL:16 05/17/2017 - - Read by: Ulysses Alan MD Dictated Date/time: 05/17/17 00:13 Electronically Signed by: Ulysses Alan MD 05/17/17 00:16 FINAL REPORT [facility] Chest 2 views DX Chest 2 views DX EXAM: XR CHEST 2 VIEW DATE: 05/16/2017 9:55 PM CDT INDICATION: Chest pain. COMPARISON: 04/25/2017. TECHNIQUE: PA and lateral views of the chest were obtained. FINDINGS: No focal consolidation or pneumothorax is identified. The cardiomediastinal silhouette is within normal limits. The costophrenic recesses are sharp and without effusion. No acute osseous abnormality is noted. IMPRESSION: No acute cardiopulmonary abnormality. SL: [id number] 05/16/2017 - - Read by: Chevy Elizabeth MD Dictated Date/time: 05/16/17 22:06 Electronically Signed by: Chevy Elizabeth MD 05/16/17 22:06 FINAL REPORT [facility] URINE AND STOOL UA Nitrite Negative (04/25/17 5:26 PM) Negative 04/25/2017 [facility] URINE AND STOOL UA WBC 2 /HPF 0 - 5 04/25/2017 [facility] URINE AND STOOL UA Sq Epi Occasional /LPF Few /LPF 04/25/2017 [facility] URINE AND STOOL UA Leuk Est Negative (04/25/17 5:26 PM) Negative 04/25/2017 [facility] URINE AND STOOL UA Blood Negative (04/25/17 5:26 PM) Negative 04/25/2017 [facility] URINE AND STOOL UA Glucose Negative mg/dL Negative mg/dL 04/25/2017 [facility] URINE AND STOOL UA Protein Negative mg/dL Negative mg/dL 04/25/2017 [facility] URINE AND STOOL UA Color Yellow *NA* (04/25/17 5:26 PM) Yellow 04/25/2017 [facility] URINE AND STOOL UA Urobilinogen <=1.0 mg/dL 0.1 - 1.0 04/25/2017 [facility] URINE AND STOOL UA CaOx Peggy Moderate /HPF None Seen /HPF 04/25/2017 [facility] URINE AND STOOL UA Mucus Few /LPF None Seen /LPF 04/25/2017 [facility] URINE AND STOOL UA RBC 4 /HPF 0 - 2 04/25/2017 [facility] URINE AND STOOL UA Bili Negative *NA* (04/25/17 5:26 PM) Negative 04/25/2017 [facility] URINE AND STOOL UA Ketones Negative mg/dL Negative mg/dL 04/25/2017 [facility] URINE AND STOOL UA pH 6.0 5.0 - 8.0 04/25/2017 [facility] URINE AND STOOL UA Spec Grav 1.026 <=1.030 04/25/2017 [facility] URINE AND STOOL UA Turbidity Slight *ABN* (04/25/17 5:26 PM) Clear 04/25/2017 [facility] URINE CHEM U Preg Negative (04/25/17 5:26 PM) Negative 04/25/2017 [facility] MPV 8.6 fL 7.4 - 10.4 04/25/2017 [facility] HEMATOLOGY RDW 13.4 % 11.5 - 14.5 04/25/2017 [facility] Platelet 257 K/CMM 133 - 450 04/25/2017 [facility] Hgb 14.6 g/dL 12.0 - 16.0 04/25/2017 [facility] RBC 4.60 M/CMM 4.20 - 5.40 04/25/2017 [facility] MCHC 35.3 g/dL 32.0 - 36.0 04/25/2017 [facility] WBC 8.7 K/CMM 3.7 - 10.4 04/25/2017 [facility] MCH 31.8 pg 27.0 - 31.0 04/25/2017 [facility] MCV 90.0 fL 80.0 - 98.0 04/25/2017 [facility] Hct 41.4 % 36.0 - 48.0 04/25/2017 [facility] Lymphocytes 26.7 % 20.0 - 40.0 04/25/2017 [facility] Monocytes 7.5 % 2.0 - 12.0 04/25/2017 [facility] Basophils # 0.1 K/CMM 0.0 - 0.2 04/25/2017 [facility] HEMATOLOGY Segs 62.4 % 45.0 - 75.0 04/25/2017 [facility] HEMATOLOGY Basophils 0.6 % 0.0 - 1.0 04/25/2017 [facility] HEMATOLOGY Eosinophils 2.8 % 0.0 - 4.0 04/25/2017 [facility] Lymphocytes # 2.3 K/CMM 1.0 - 5.5 04/25/2017 [facility] Segs-Bands # 5.4 K/CMM 1.5 - 8.1 04/25/2017 [facility] Monocytes # 0.7 K/CMM 0.0 - 0.8 04/25/2017 [facility] HEMATOLOGY Eosinophils # 0.2 K/CMM 0.0 - 0.5 04/25/2017 [facility] Chest 1view DX Chest 1view DX EXAM: Chest 1view DX DATE: 04/25/2017 12:04 PM CDT INDICATION: Chest pain. COMPARISON: 08/14/2016. IMPRESSION: Stable cardiac silhouette and mediastinum. Tortuous thoracic aorta. No focal consolidation, significant pleural effusion or pneumothorax. Surgical clips are present in the right upper quadrant. SL: [id number] 04/25/2017 - - Read by: Jasen Sorensen MD Dictated Date/time: 04/25/17 12:33 Electronically Signed by: Jasen Sorensen MD 04/25/17 12:34 FINAL REPORT [facility] URINE AND STOOL UA Urobilinogen <=1.0 mg/dL 0.1 - 1.0 08/14/2016 [facility] URINE AND STOOL UA Color Ltyellow 08/14/2016 [facility] URINE AND STOOL UA Turbidity Clear (08/14/16 8:39 AM) Clear 08/14/2016 [facility] URINE AND STOOL UA Sq Epi Occasional /LPF Few /LPF 08/14/2016 [facility] URINE AND STOOL UA Bacteria Occasional /HPF None Seen /HPF 08/14/2016 [facility] URINE AND STOOL UA Mucus Few /LPF None Seen /LPF 08/14/2016 [facility] URINE AND STOOL UA RBC 1 /HPF 0 - 2 08/14/2016 [facility] URINE AND STOOL UA Spec Grav 1.009 <=1.030 08/14/2016 [facility] URINE AND STOOL UA pH 6.0 5.0 - 8.0 08/14/2016 [facility] URINE AND STOOL UA Protein Negative mg/dL Negative mg/dL 08/14/2016 [facility] URINE AND STOOL UA Glucose Negative mg/dL Negative mg/dL 08/14/2016 [facility] URINE AND STOOL UA Ketones Negative mg/dL Negative mg/dL 08/14/2016 [facility] URINE AND STOOL UA Bili Negative *NA* (08/14/16 8:39 AM) Negative 08/14/2016 [facility] URINE AND STOOL UA Blood Small *ABN* (08/14/16 8:39 AM) Negative 08/14/2016 [facility] URINE AND STOOL UA Nitrite Negative (08/14/16 8:39 AM) Negative 08/14/2016 [facility] URINE AND STOOL UA Leuk Est Negative (08/14/16 8:39 AM) Negative 08/14/2016 [facility] URINE AND STOOL UA WBC null 0 - 5 08/14/2016 [facility] CARDIAC ENZYMES BNP 11 pg/mL <=100 pg/mL 08/14/2016 [facility] CARDIAC ENZYMES Total CK 64 unit/L 12 - 191 08/14/2016 [facility] CARDIAC ENZYMES CK MB null 0.5 - 3.6 08/14/2016 [facility] CARDIAC ENZYMES Troponin-I null 0.00 - 0.40 08/14/2016 [facility] CARDIAC ENZYMES CK MB Index null 0.0 - 2.5 08/14/2016 [facility] CHEM PANEL eGFR 107 mL/min/1.73m2 08/14/2016 Result Comment: The eGFR is calculated using the [...] from the National Kidney Disease Education Program (NKDEP) which additionally recommends that when the eGFR is used in patients with extremes of body mass index for purposes of drug dosing, the eGFR should be multiplied by the estimated BMI. [facility] CHEM PANEL Glucose Lvl 100 mg/dL 70 - 99 08/14/2016 [facility] CHEM PANEL Albumin Lvl 3.8 g/dL 3.5 - 5.0 08/14/2016 [facility] CHEM PANEL ALT 19 unit/L 0 - 65 08/14/2016 [facility] CHEM PANEL AGAP 13.7 meq/L 10.0 - 20.0 08/14/2016 [facility] CHEM PANEL Globulin 3.6 g/dL 2.7 - 4.2 08/14/2016 [facility] CHEM PANEL B/C Ratio 23 6 - 25 08/14/2016 [facility] CHEM PANEL A/G Ratio 1.1 0.7 - 1.6 08/14/2016 [facility] CHEM PANEL Total Protein 7.4 g/dL 6.4 - 8.4 08/14/2016 [facility] CHEM PANEL BUN 15 mg/dL 7 - 22 08/14/2016 [facility] CHEM PANEL Sodium Lvl 138 meq/L 135 - 145 08/14/2016 [facility] CHEM PANEL Chloride Lvl 104 meq/L 95 - 109 08/14/2016 [facility] CHEM PANEL Calcium Lvl 8.5 mg/dL 8.5 - 10.5 08/14/2016 [facility] CHEM PANEL CO2 24 meq/L 24 - 32 08/14/2016 [facility] CHEM PANEL Bili Total 0.3 mg/dL 0.2 - 1.3 08/14/2016 [facility] CHEM PANEL Alk Phos 54 unit/L 39 - 136 08/14/2016 [facility] CHEM PANEL Creatinine Lvl 0.66 mg/dL 0.50 - 1.40 08/14/2016 [facility] CHEM PANEL Potassium Lvl 3.7 meq/L 3.5 - 5.1 08/14/2016 [facility] CHEM PANEL AST 16 unit/L 0 - 37 08/14/2016 [facility] MCH 31.4 pg 27.0 - 31.0 08/14/2016 [facility] MCHC 34.8 g/dL 32.0 - 36.0 08/14/2016 [facility] HEMATOLOGY RBC 4.58 M/CMM 4.20 - 5.40 08/14/2016 [facility] HEMATOLOGY WBC 7.3 K/CMM 3.7 - 10.4 08/14/2016 [facility] HEMATOLOGY RDW 13.7 % 11.5 - 14.5 08/14/2016 [facility] Hct 41.3 % 36.0 - 48.0 08/14/2016 [facility] Hgb 14.4 g/dL 12.0 - 16.0 08/14/2016 [facility] HEMATOLOGY MCV 90.3 fL 80.0 - 98.0 08/14/2016 [facility] HEMATOLOGY MPV 9.2 fL 7.4 - 10.4 08/14/2016 [facility] HEMATOLOGY Platelet 212 K/CMM 133 - 450 08/14/2016 [facility] HEMATOLOGY Monocytes # 0.5 K/CMM 0.0 - 0.8 08/14/2016 [facility] HEMATOLOGY Eosinophils # 0.2 K/CMM 0.0 - 0.5 08/14/2016 [facility] HEMATOLOGY Basophils 0.6 % 0.0 - 1.0 08/14/2016 [facility] Monocytes 6.2 % 2.0 - 12.0 08/14/2016 [facility] HEMATOLOGY Segs-Bands # 3.9 K/CMM 1.5 - 8.1 08/14/2016 [facility] HEMATOLOGY Lymphocytes # 2.6 K/CMM 1.0 - 5.5 08/14/2016 [facility] HEMATOLOGY Eosinophils 3.1 % 0.0 - 4.0 08/14/2016 [facility] HEMATOLOGY Segs 53.6 % 45.0 - 75.0 08/14/2016 [facility] HEMATOLOGY Lymphocytes 36.5 % 20.0 - 40.0 08/14/2016 [facility] Chest 1view DX Chest 1view DX Clinical Indication:45 years Female with Chest pain Comparison: Chest x-ray 12/19/2015 FINDINGS: Lines: None. The single frontal chest radiograph shows normal lung volumes. No interstitial or airspace opacities. No pleural effusion. No pneumothorax. Cardiac silhouette is normal. Pulmonary vasculature is normal. The trachea is midline. There are no acute osseous abnormalities noted. IMPRESSION: No chest radiographic evidence of acute cardiopulmonary disease. 08/14/2016 - - Read by: Ezra Merino MD Dictated Date/time: 08/14/16 08:07 Electronically Signed by: Ezra Merino MD 08/14/16 08:10 FINAL REPORT [facility] URINE AND STOOL UA Color Colorless 03/25/2016 [facility] URINE AND STOOL UA Urobilinogen <=1.0 mg/dL 0.1 - 1.0 03/25/2016 [facility] URINE AND STOOL UA RBC null 0 - 2 03/25/2016 [facility] URINE AND STOOL UA Sq Epi Occasional /LPF Few /LPF 03/25/2016 [facility] URINE AND STOOL UA Ketones Negative mg/dL Negative mg/dL 03/25/2016 [facility] URINE AND STOOL UA Bili Negative *NA* (03/24/16 10:40 PM) Negative 03/25/2016 [facility] URINE AND STOOL UA Nitrite Negative (03/24/16 10:40 PM) Negative 03/25/2016 [facility] URINE AND STOOL UA Leuk Est Negative (03/24/16 10:40 PM) Negative 03/25/2016 [facility] URINE AND STOOL UA Turbidity Clear (03/24/16 10:40 PM) Clear 03/25/2016 [facility] URINE AND STOOL UA Blood Negative (03/24/16 10:40 PM) Negative 03/25/2016 [facility] URINE AND STOOL UA Protein Negative mg/dL Negative mg/dL 03/25/2016 [facility] URINE AND STOOL UA Glucose Negative mg/dL Negative mg/dL 03/25/2016 [facility] URINE AND STOOL UA Spec Grav 1.008 <=1.030 03/25/2016 [facility] URINE AND STOOL UA pH 7.0 5.0 - 8.0 03/25/2016 [facility] URINE CHEM U Preg Negative (03/24/16 10:40 PM) Negative 03/25/2016 [facility] CHEM PANEL eGFR 81 mL/min/1.73m2 03/25/2016 Result Comment: The eGFR is calculated using the [...] from the National Kidney Disease Education Program (NKDEP) which additionally recommends that when the eGFR is used in patients with extremes of body mass index for purposes of drug dosing, the eGFR should be multiplied by the estimated BMI. [facility] CHEM PANEL Bili Total 0.3 mg/dL 0.2 - 1.3 03/25/2016 [facility] CHEM PANEL Total Protein 7.2 g/dL 6.4 - 8.4 03/25/2016 [facility] CHEM PANEL Albumin Lvl 3.6 g/dL 3.5 - 5.0 03/25/2016 [facility] CHEM PANEL ALT 21 unit/L 0 - 65 03/25/2016 [facility] CHEM PANEL AST 11 unit/L 0 - 37 03/25/2016 [facility] CHEM PANEL Alk Phos 55 unit/L 39 - 136 03/25/2016 [facility] CHEM PANEL Sodium Lvl 138 meq/L 135 - 145 03/25/2016 [facility] CHEM PANEL Potassium Lvl 3.8 meq/L 3.5 - 5.1 03/25/2016 [facility] CHEM PANEL Chloride Lvl 107 meq/L 95 - 109 03/25/2016 [facility] CHEM PANEL CO2 23 meq/L 24 - 32 03/25/2016 [facility] CHEM PANEL Calcium Lvl 8.1 mg/dL 8.5 - 10.5 03/25/2016 [facility] CHEM PANEL Glucose Lvl 112 mg/dL 70 - 99 03/25/2016 [facility] CHEM PANEL BUN 16 mg/dL 7 - 22 03/25/2016 [facility] CHEM PANEL Creatinine Lvl 0.87 mg/dL 0.50 - 1.40 03/25/2016 [facility] CHEM PANEL AGAP 11.8 meq/L 10.0 - 20.0 03/25/2016 [facility] CHEM PANEL B/C Ratio 18 6 - 25 03/25/2016 [facility] CHEM PANEL Globulin 3.6 g/dL 2.7 - 4.2 03/25/2016 [facility] CHEM PANEL A/G Ratio 1.0 0.7 - 1.6 03/25/2016 [facility] CHEM PANEL Lipase Lvl 178 unit/L 73 - 393 03/25/2016 [facility] ENDOCRINOLOGY hCG Tot null 03/25/2016 [facility] HEMATOLOGY MPV 9.2 fL 7.4 - 10.4 03/25/2016 [facility] HEMATOLOGY RDW 13.5 % 11.5 - 14.5 03/25/2016 [facility] HEMATOLOGY Platelet 201 K/CMM 133 - 450 03/25/2016 [facility] MCHC 34.6 g/dL 32.0 - 36.0 03/25/2016 [facility] HEMATOLOGY MCV 91.1 fL 80.0 - 98.0 03/25/2016 [facility] HEMATOLOGY Hct 39.7 % 36.0 - 48.0 03/25/2016 [facility] HEMATOLOGY Hgb 13.7 g/dL 12.0 - 16.0 03/25/2016 [facility] MCH 31.5 pg 27.0 - 31.0 03/25/2016 [facility] HEMATOLOGY RBC 4.36 M/CMM 4.20 - 5.40 03/25/2016 [facility] HEMATOLOGY WBC 9.3 K/CMM 3.7 - 10.4 03/25/2016 [facility] HEMATOLOGY Segs 59.8 % 45.0 - 75.0 03/25/2016 [facility] HEMATOLOGY Lymphocytes 29.8 % 20.0 - 40.0 03/25/2016 [facility] HEMATOLOGY Eosinophils # 0.2 K/CMM 0.0 - 0.5 03/25/2016 [facility] HEMATOLOGY Monocytes # 0.7 K/CMM 0.0 - 0.8 03/25/2016 [facility] HEMATOLOGY Lymphocytes # 2.8 K/CMM 1.0 - 5.5 03/25/2016 [facility] HEMATOLOGY Segs-Bands # 5.6 K/CMM 1.5 - 8.1 03/25/2016 [facility] HEMATOLOGY Eosinophils 2.1 % 0.0 - 4.0 03/25/2016 [facility] HEMATOLOGY Basophils 0.5 % 0.0 - 1.0 03/25/2016 [facility] HEMATOLOGY Monocytes 7.8 % 2.0 - 12.0 03/25/2016 [facility] Abdomen/Pelvis w IV contrast CT Abdomen/Pelvis w IV contrast CT CT SCAN OF THE ABDOMEN AND PELVIS WITH CONTRAST. HX: Clinical Indication: Abdominal pain, acute; luq pain. Comparison: None Technique: Helical CT images were obtained from the domes the diaphragms to the symphysis pubis following the administration of intravenous contrast. No p.o. contrast was given. ABDOMEN AND PELVIS: The lung bases are clear. The heart is normal in size. Postoperative cholecystectomy. The liver, spleen, pancreas, and adrenals are normal in appearance. The kidneys show good, symmetrical, excretion without hydronephrosis. Grossly normal appendix. Abundance of stool within the colon. Nonspecific thickened small bowel wall and folds are present within the left upper quadrant and abdomen likely compatible with nonspecific enteritis. The terminal ileum is grossly normal. Heterogeneous uterus. A 3.3 cm left ovarian cyst is present. Moderate to severe bilateral L5/S1 foraminal encroachment. IMPRESSION: 1. Nonspecific thickened small bowel wall and folds are present within the left upper quadrant and abdomen likely compatible with nonspecific enteritis with possible inflammatory bowel disease such as Crohn's. 2. No convincing evidence of acute appendicitis. SL: [id number] 03/24/2016 - - Read by: Jasen Sorensen MD Dictated Date/time: 03/24/16 23:40 Electronically Signed by: Jasen Sorensen MD 03/24/16 23:43 FINAL REPORT [facility] Chest 2 views DX Chest 2 views DX Study: Chest 2 views DX Clinical Indication: Cough and fever Comparison: 12/06/2013 FINDINGS: The cardiac silhouette is normal in size. The lungs are clear and without consolidation or congestion. No pleural effusion or pneumothorax is seen. The osseous structures are unremarkable. IMPRESSION: No acute cardiopulmonary disease. SL: [id number] 12/19/2015 - - Read by: Mykel Lino MD Dictated Date/time: 12/19/15 09:04 Electronically Signed by: Mykel Lino MD 12/19/15 09:05 FINAL REPORT [facility] Chest 2 views Chest 2 views PA and LATERAL CHEST (2 views) HISTORY: Dyspnea Comparison is made to 11/17/2013. FINDINGS: The lungs are clear. The heart and pulmonary vasculature are within normal limits. There are no pleural effusions. The regional skeleton is unremarkable. CONCLUSION: 1. No active disease. Coding: Chest 2 views CPT Code: 16985 SL: 13 Mati Macias M.D. 12/06/2013 - - Read by: Mati Macias MD Dictated Date/time: 12/06/13 09:29 Electronically Signed by: Mati Macias MD 12/06/13 09:29 FINAL REPORT [facility] CHEM PANEL eGFR 62 mL/min/1.73m2 11/17/2013 1Result Comment: The eGFR is calculated using [...] from the National Kidney Disease Education Program (NKDEP) which additionally recommends that when the eGFR is used in patients with extremes of body mass index for purposes of drug dosing, the eGFR should be multiplied by the estimated BMI. [facility] CHEM PANEL Glucose Lvl 104 mg/dL 70 - 99 11/17/2013 2Interpretive Data: Adult reference range values reflect the clinical guidelines of the [employer]. [facility] CHEM PANEL CO2 27 meq/L 24 - 32 11/17/2013 [facility] CHEM PANEL Calcium Lvl 8.2 mg/dL 8.5 - 10.5 11/17/2013 [facility] CHEM PANEL Potassium Lvl 4.3 meq/L 3.5 - 5.1 11/17/2013 [facility] CHEM PANEL Chloride Lvl 106 meq/L 95 - 109 11/17/2013 [facility] CHEM PANEL BUN 13 mg/dL 7 - 22 11/17/2013 [facility] CHEM PANEL Creatinine Lvl 1.1 mg/dL 0.5 - 1.4 11/17/2013 [facility] CHEM PANEL Sodium Lvl 136 meq/L 135 - 145 11/17/2013 [facility] CHEM PANEL AGAP 7.3 meq/L 10.0 - 20.0 11/17/2013 [facility] HEMATOLOGY D-Dimer 0.38 ug/mL FEU 11/17/2013 3Interpretive Data: In DIC, quantitative D-Dimer is generally greater than 0.66 ug/mL FEU. Values of quantitative D-Dimer less than 0.40 ug/mL FEU have been reported to be associated with a low probability of deep vein thrombosis/pulmonary embolism. This test alone should not be used to rule out DVT/PE. [facility] Platelet 101 K/CMM 133 - 450 11/17/2013 [facility] MPV 9.7 fL 7.4 - 10.4 11/17/2013 [facility] MCV 92.2 fL 81.0 - 99.0 11/17/2013 [facility] MCHC 34.5 g/dL 32.0 - 36.0 11/17/2013 [facility] RDW 13.5 % 11.5 - 14.5 11/17/2013 [facility] MCH 31.8 pg 27.0 - 31.0 11/17/2013 [facility] RBC 4.16 M/CMM 4.20 - 5.40 11/17/2013 [facility] Hgb 13.2 g/dL 12.0 - 16.0 11/17/2013 [facility] Hct 38.3 % 36.0 - 48.0 11/17/2013 [facility] WBC 6.6 K/CMM 3.7 - 10.4 11/17/2013 [facility] Basophils # 0.0 K/CMM 0.0 - 0.2 11/17/2013 [facility] Eosinophils # 0.2 K/CMM 0.0 - 0.5 11/17/2013 [facility] Monocytes # 0.3 K/CMM 0.0 - 0.8 11/17/2013 [facility] Monocytes 4.0 % 2.0 - 12.0 11/17/2013 [facility] Lymphocytes 30.5 % 20.0 - 40.0 11/17/2013 [facility] HEMATOLOGY Segs 62.3 % 45.0 - 75.0 11/17/2013 [facility] HEMATOLOGY Segs-Bands # 4.1 K/CMM 1.5 - 8.1 11/17/2013 [facility] HEMATOLOGY Lymphocytes # 2.0 K/CMM 1.0 - 5.5 11/17/2013 [facility] HEMATOLOGY Eosinophils 2.5 % 0.0 - 4.0 11/17/2013 [facility] HEMATOLOGY Basophils 0.7 % 0.0 - 1.0 11/17/2013 [facility] IMMUNOLOGY CDC HIV 4th GEN Negative (11/17/13 2:12 PM) Negative 11/17/2013 [facility] Chest 2 views Chest 2 views HISTORY: Chest pain. Chest 2 views. Mild linear atelectasis in the left lung base. Lungs otherwise clear. No pleural effusion or pneumothorax. Heart size normal. IMPRESSION: Linear atelectasis or fibrosis, left lung base. Otherwise negative. SL:13 11/17/2013 - - Read by: Bharat Oro Dictated Date/time: 11/17/13 12:06 Electronically Signed by: Bharat Oro MD 11/17/13 12:07 FINAL REPORT [facility] Microbiology Culture: Wound/Abscess w/Gram Stain 12/02/2012 [facility] Vital Signs Vital Sign Value Date Comments Source Respitory Rate 16 12/17/2017 [facility] Systolic (mm Hg) 128 12/17/2017 [facility] Diastolic (mm Hg) 72 12/17/2017 [facility] Heart Rate 82 12/17/2017 [facility] Temperature Oral (F) 99.2 F 12/17/2017 [facility] Height 162.56 cm 12/17/2017 [facility] Temperature Oral (F) 99.6 F 12/17/2017 [facility] Respitory Rate 18 12/17/2017 [facility] Systolic (mm Hg) 126 12/17/2017 [facility] Diastolic (mm Hg) 76 12/17/2017 [facility] Heart Rate 88 12/17/2017 [facility] BMI Calculated 27.69 12/17/2017 [facility] Weight 73.182 12/17/2017 [facility] Temperature Oral (F) 98.4 F 07/26/2017 [facility] Systolic (mm Hg) 113 07/26/2017 [facility] Diastolic (mm Hg) 58 07/26/2017 [facility] Respitory Rate 20 07/26/2017 [facility] Systolic (mm Hg) 132 07/26/2017 [facility] Diastolic (mm Hg) 76 07/26/2017 [facility] Systolic (mm Hg) 104 07/26/2017 [facility] Diastolic (mm Hg) 58 07/26/2017 [facility] Respitory Rate 18 07/26/2017 [facility] Heart Rate 86 07/26/2017 [facility] Respitory Rate 18 07/26/2017 [facility] Temperature Oral (F) 97.9 F 07/26/2017 [facility] Weight 85.909 07/26/2017 [facility] BMI Calculated 31.52 07/26/2017 [facility] Height 165.1 cm 07/26/2017 [facility] Heart Rate 86 07/26/2017 [facility] Temperature Oral (F) 99.0 F 07/26/2017 [facility] Systolic (mm Hg) 121 07/08/2017 [facility] Diastolic (mm Hg) 69 07/08/2017 [facility] Respitory Rate 16 07/08/2017 [facility] Heart Rate 79 07/08/2017 [facility] Heart Rate 80 07/08/2017 [facility] Systolic (mm Hg) 131 07/08/2017 [facility] Diastolic (mm Hg) 86 07/08/2017 [facility] Respitory Rate 16 07/08/2017 [facility] BMI Calculated 33.71 07/08/2017 [facility] Weight 89.091 07/08/2017 [facility] Height 162.56 cm 07/08/2017 [facility] Respitory Rate 16 07/08/2017 [facility] Temperature Oral (F) 98.2 F 07/08/2017 [facility] Heart Rate 98 07/08/2017 [facility] Systolic (mm Hg) 137 07/08/2017 [facility] Diastolic (mm Hg) 92 07/08/2017 [facility] Systolic (mm Hg) 126 05/17/2017 [facility] Diastolic (mm Hg) 77 05/17/2017 [facility] Respitory Rate 17 05/17/2017 [facility] Temperature Oral (F) 97.9 F 05/17/2017 [facility] Systolic (mm Hg) 139 05/17/2017 [facility] Diastolic (mm Hg) 81 05/17/2017 [facility] Respitory Rate 20 05/17/2017 [facility] Systolic (mm Hg) 145 05/17/2017 [facility] Diastolic (mm Hg) 78 05/17/2017 [facility] Respitory Rate 16 05/17/2017 [facility] Temperature Oral (F) 98 F 05/17/2017 [facility] Heart Rate 65 05/17/2017 [facility] Height 162.56 cm 05/17/2017 [facility] BMI Calculated 33.03 05/17/2017 [facility] Weight 87.273 05/17/2017 [facility] Heart Rate 74 05/17/2017 [facility] Temperature Oral (F) 97.9 F 05/17/2017 [facility] Temperature Oral (F) 98.0 F 04/25/2017 [facility] Heart Rate 74 04/25/2017 [facility] Respitory Rate 20 04/25/2017 [facility] Systolic (mm Hg) 145 04/25/2017 [facility] Diastolic (mm Hg) 78 04/25/2017 [facility] BMI Calculated 32.68 04/25/2017 [facility] Weight 86.364 04/25/2017 [facility] Height 162.56 cm 04/25/2017 [facility] Systolic (mm Hg) 143 04/25/2017 [facility] Diastolic (mm Hg) 65 04/25/2017 [facility] Heart Rate 73 04/25/2017 [facility] Temperature Oral (F) 98.3 F 04/25/2017 [facility] Respitory Rate 18 04/25/2017 [facility] Temperature Oral (F) 98.6 F 04/03/2017 [facility] Respitory Rate 17 04/03/2017 [facility] Heart Rate 60 04/03/2017 [facility] Systolic (mm Hg) 148 04/03/2017 [facility] Diastolic (mm Hg) 79 04/03/2017 [facility] BMI Calculated 30.96 04/03/2017 [facility] Weight 81.818 04/03/2017 [facility] Height 162.56 cm 04/03/2017 [facility] Systolic (mm Hg) 132 08/14/2016 [facility] Diastolic (mm Hg) 96 08/14/2016 [facility] Temperature Oral (F) 97.9 F 08/14/2016 [facility] Respitory Rate 18 08/14/2016 [facility] Heart Rate 66 08/14/2016 [facility] Temperature Oral (F) 97.9 F 08/14/2016 [facility] Heart Rate 71 08/14/2016 [facility] Respitory Rate 18 08/14/2016 [facility] Systolic (mm Hg) 161 08/14/2016 [facility] Diastolic (mm Hg) 98 08/14/2016 [facility] Heart Rate 70 03/25/2016 [facility] Systolic (mm Hg) 129 03/25/2016 [facility] Diastolic (mm Hg) 79 03/25/2016 [facility] Temperature Oral (F) 98.2 F 03/25/2016 [facility] Respitory Rate 20 03/25/2016 [facility] Systolic (mm Hg) 130 03/25/2016 [facility] Diastolic (mm Hg) 80 03/25/2016 [facility] Heart Rate 74 03/25/2016 [facility] Respitory Rate 18 03/25/2016 [facility] Height 162.56 cm 03/25/2016 [facility] BMI Calculated 30.96 03/25/2016 [facility] Weight 81.818 03/25/2016 [facility] Temperature Oral (F) 98 F 03/25/2016 [facility] Systolic (mm Hg) 121 12/19/2015 [facility] Diastolic (mm Hg) 72 12/19/2015 [facility] Heart Rate 67 12/19/2015 [facility] Temperature Oral (F) 98.2 F 12/19/2015 [facility] Respitory Rate 16 12/19/2015 [facility] Respitory Rate 18 12/19/2015 [facility] Respitory Rate 16 12/19/2015 [facility] Heart Rate 63 12/19/2015 [facility] Systolic (mm Hg) 142 12/19/2015 [facility] Diastolic (mm Hg) 80 12/19/2015 [facility] Weight 77.273 12/19/2015 [facility] Temperature Oral (F) 97.6 F 12/19/2015 [facility] BMI Calculated 29.24 12/19/2015 [facility] Height 162.56 cm 12/19/2015 [facility] Heart Rate 77 12/19/2015 [facility] Systolic (mm Hg) 156 12/19/2015 [facility] Diastolic (mm Hg) 86 12/19/2015 [facility] Temperature Oral (F) 98.7 F 12/06/2013 [facility] Respitory Rate 18 12/06/2013 [facility] Diastolic (mm Hg) 74 12/06/2013 [facility] Heart Rate 72 12/06/2013 [facility] Systolic (mm Hg) 117 12/06/2013 [facility] Systolic (mm Hg) 126 12/06/2013 [facility] Diastolic (mm Hg) 80 12/06/2013 [facility] Heart Rate 71 12/06/2013 [facility] Respitory Rate 18 12/06/2013 [facility] Temperature Oral (F) 98.9 F 12/06/2013 [facility] Heart Rate 63 12/06/2013 [facility] Respitory Rate 18 12/06/2013 [facility] Diastolic (mm Hg) 99 12/06/2013 [facility] Systolic (mm Hg) 143 12/06/2013 [facility] Temperature Oral (F) 98.4 F 12/06/2013 [facility] BMI Calculated 30.96 12/06/2013 [facility] Weight 81.818 12/06/2013 [facility] Height 162.56 cm 12/06/2013 [facility] Diastolic (mm Hg) 73 11/17/2013 [facility] Respitory Rate 19 11/17/2013 [facility] Systolic (mm Hg) 113 11/17/2013 [facility] Heart Rate 64 11/17/2013 [facility] Temperature Oral (F) 97.8 F 11/17/2013 [facility] Respitory Rate 18 11/17/2013 [facility] Weight 90.909 11/17/2013 [facility] Temperature Oral (F) 98.1 F 11/17/2013 [facility] Respitory Rate 18 11/17/2013 [facility] Heart Rate 80 11/17/2013 [facility] Diastolic (mm Hg) 83 11/17/2013 [facility] Systolic (mm Hg) 127 11/17/2013 [facility] Weight 81.818 12/02/2012 [facility] Height 162.56 cm 12/02/2012 [facility] Encounters Location Location Details Encounter Type Encounter Number Reason For Visit Attending Provider ADM Date DC Date Status Source [facility] Emergency [id number] ARSLAN AKHTAR 12/02/2012 12/02/2012 Active [facility] [id number] Verenice Bone 11/17/2013 11/17/2013 [facility] [id number] Arslan OlmedoAkhtar 12/06/2013 12/06/2013 [facility] [id number] Vadim Hernandez 12/19/2015 12/19/2015 [facility] Emergency [id number] Surya Perez 03/25/2016 03/25/2016 [facility] Emergency [id number] Steph Chinchilla 08/14/2016 08/14/2016 [facility] Emergency [id number] Anna Jose 04/03/2017 04/04/2017 [facility] Emergency [id number] Dale Mary 04/25/2017 04/25/2017 [facility] Emergency [id number] Angeline Ahumada 05/17/2017 05/17/2017 [facility] Emergency [id number] Wil Espinosa 07/08/2017 07/08/2017 [facility] Emergency [id number] Didier Davis 07/26/2017 07/26/2017 [facility] Emergency [id number] Jasen Roderick 12/17/2017 12/17/2017 [facility] Procedures Procedure Code Date Perfomer Comments Source Cholecystectomy [id number] [facility] Tubal ligation [id number] [facility] Cholecystectomy [id number] [facility] Tubal ligation [id number] [facility]
[2018-08-24] MEDS ORDERED: DIPHENHYDRAMINE HCL INJ 50 MG/ML VIAL IV ONE (22:15)
[2018-08-24] MEDS ORDERED: SODIUM CHLORIDE 0.9% 1000ML 1,000 ML IV ONE (22:15)
[2018-08-24] MEDS ORDERED: METOCLOPRAMIDE HCL 10 MG/2ML VIAL IV ONE (22:15)
--- NOTE | 2018-08-24 22:44 | Diagnostic Imaging Report ---
EXAMINATION: Head CT without contrast. HISTORY:Headache. COMPARISON:None. TECHNIQUE: Multidetector axial images were obtained from the foramen magnum to the vertex without contrast. The images were reconstructed using brain and bone algorithms. Thin section brain images were reformatted into coronal and sagittal planes. Dose modulation, iterative reconstruction, and/or weight based adjustment of the mA/kV was utilized to reduce the radiation dose to as low as reasonably achievable. Intravenous contrast: None IMAGE QUALITY: Suboptimal evaluation particularly of skull base and posterior fossa structures due to streak artifacts. FINDINGS: Skull/scalp: No lytic or blastic. lesions. No surgical changes. Parenchyma: No abnormal density. No acute hemorrhage, mass or acute major vascular territorial infarct. Arteries: No density suggestive of thrombosis. Dural sinuses: No abnormal density suggestive of thrombosis. Ventricles: No hydrocephalus or displacement. Extra-axial spaces: No abnormal density. Brain volume: Normal for age. Craniocervical junction: No mass, Chiari malformation, or basilar invagination. Sella: No mass. Paranasal/mastoid sinuses: Imaged portions unremarkable. IMPRESSION: No intracranial abnormality. Signed by: Dr. Layla Mariano M.D. on 08/24/2018 10:41 PM
[2018-08-24 23:22] LABS: ALANINE AMINOTRANSFERASE 19 IU/L (0-55); ALBUMIN/GLOBULIN RATIO 1.4 (0.8-2.0); ALKALINE PHOSPHATASE 54 IU/L (40-150); ANION GAP 15.5 mmol/L (8-16); BLOOD UREA NITROGEN 13 mg/dL (7-26); BUN/CREATININE RATIO 20 (6-25); CALCIUM 8.8 mg/dL (8.4-10.2); CARBON DIOXIDE 23 mmol/L (22-29); CHLORIDE 104 mmol/L (98-107); CREATININE, SERUM 0.65 mg/dL (0.57-1.11); EST GLOMERULAR FILTRATION RATE > 60 ML/MIN (60-); GLUCOSE 96 mg/dL (74-118); POTASSIUM 3.5 mmol/L (3.5-5.1); SODIUM 139 mmol/L (136-145)
[2018-08-24 23:33] LABS: CREATINE KINASE 29 IU/L (29-168)
[2018-08-24 23:42] LABS: BASOPHILS % 0.3 % (0.0-1.0); EOSINOPHILS # (AUTO) 0.1 (0.0-0.4); HEMATOCRIT 35.2 % (34.2-44.1); HEMOGLOBIN 12.9 g/dL (12.0-16.0); LYMPHOCYTES # (AUTO) 3.3 (1.0-3.2); LYMPHOCYTES % 31.6 % (18.0-39.1); MEAN CORPUSCULAR HEMOGLOBIN 31.9 pg (28-32); MEAN CORPUSCULAR HGB CONC 36.6 g/dL (31-35); MEAN CORPUSCULAR VOLUME 86.9 fL (81-99); MONOCYTES # (AUTO) 0.7 (0.2-0.8); MONOCYTES % 6.6 % (4.4-11.3); NEUTROPHILS # (AUTO) 6.3 (2.1-6.9); NEUTROPHILS % 59.6 % (38.7-80.0); PLATELET COUNT 274 x10e3/uL (140-360); RED BLOOD COUNT 4.05 x10e6/uL (3.6-5.1); RED CELL DISTRIBUTION WIDTH 14.9 % (11.7-14.4)
[2018-08-25 00:13] LABS: CLARITY,URINE CLEAR (CLEAR); COLOR,URINE STRAW (YELLOW); KETONES,URINE NEGATIVE (NEGATIVE); LEUKOCYTE ESTERASE ,URINE NEGATIVE (NEGATIVE); NITRITE,URINE NEGATIVE (NEGATIVE); PROTEIN,URINE DIPSTICK NEGATIVE (NEGATIVE)
[2018-08-25 00:15] LABS: BILIRUBIN,URINE NEGATIVE (NEGATIVE); EPITHELIAL CELLS,URINE RARE /LPF; PREGNANCY TEST, URINE NEGATIVE (NEGATIVE); RBC,URINE 0-5 /HPF (0-5); URINE UROBILINOGEN 0.2 mg/dL (0.2 - 1); WBC,URINE (MAN) 0-5 /HPF (0-5)
[2018-08-25 00:18] LABS: AMPHETAMINES SCREEN,URINE NEGATIVE (NEGATIVE); BENZODIAZEPINES SCREEN,URINE NEGATIVE (NEGATIVE); PHENCYCLIDINE SCREEN,URINE NEGATIVE (NEGATIVE)
[2018-08-25 02:08] VITALS: BP 115/71
== END 2018-08-25 02:17 | disposition home or self-care (01) ==
LOC: ER 21:12
DX: Z03.89 Encounter for observation for other suspected diseases and conditions ruled out (principal); R53.83 Other fatigue; M79.10 Myalgia, unspecified site
CPT/HCPCS: 36415; 70450; 80053; 80307; 81001; 81025; 82550; 82553; 84484; 85025; 93005; 96374; 99284; J1200; J2765; J7030

== ENCOUNTER 2018-09-14 22:39 | Emergency (ER) | payer OTHER ==
[~2018-09-14] VITALS: Ht 160 cm; Wt 88.9 kg
[2018-09-14 23:35] LABS: BASOPHILS % 0.4 % (0.0-1.0); EOSINOPHILS # (AUTO) 0.2 (0.0-0.4); EOSINOPHILS % 2.1 % (0.0-6.0); HEMATOCRIT 36.9 % (34.2-44.1); HEMOGLOBIN 12.7 g/dL (12.0-16.0); LYMPHOCYTES # (AUTO) 2.9 (1.0-3.2); LYMPHOCYTES % 33.8 % (18.0-39.1); MEAN CORPUSCULAR HEMOGLOBIN 30.5 pg (28-32); MEAN CORPUSCULAR HGB CONC 34.4 g/dL (31-35); MEAN CORPUSCULAR VOLUME 88.5 fL (81-99); MONOCYTES # (AUTO) 0.5 (0.2-0.8); MONOCYTES % 5.9 % (4.4-11.3); NEUTROPHILS # (AUTO) 4.9 (2.1-6.9); NEUTROPHILS % 57.2 % (38.7-80.0); PLATELET COUNT 318 x10e3/uL (140-360); RED BLOOD COUNT 4.17 x10e6/uL (3.6-5.1); RED CELL DISTRIBUTION WIDTH 13.6 % (11.7-14.4)
--- NOTE | 2018-09-14 23:48 | Diagnostic Imaging Report ---
EXAMINATION: CHEST SINGLE (PORTABLE) INDICATION: CHEST PAIN COMPARISON: Chest x-ray 06/30/2018 FINDINGS: AP view TUBES and LINES: None. LUNGS: Lungs are well inflated. Lungs are clear. There is no evidence of pneumonia or pulmonary edema. PLEURA: No pleural effusion or pneumothorax. HEART AND MEDIASTINUM: The cardiomediastinal silhouette is unremarkable. BONES AND SOFT TISSUES: No acute osseous lesion. Soft tissues are unremarkable. UPPER ABDOMEN: No free air under the diaphragm. IMPRESSION: No acute thoracic abnormality. Signed by: DR. Lucio Hensley MD on 09/14/2018 11:45 PM
[2018-09-14 23:49] LABS: INR 0.88; PROTHROMBIN TIME 12.8 seconds (11.9-14.5)
[2018-09-14 23:50] LABS: PARTIAL THROMBOPLASTIN TIME 28.7 seconds (23.8-35.5)
[2018-09-14 23:59] LABS: ALANINE AMINOTRANSFERASE 11 IU/L (0-55); ALBUMIN 3.7 g/dL (3.5-5.0); ALBUMIN/GLOBULIN RATIO 1.2 (0.8-2.0); ALKALINE PHOSPHATASE 57 IU/L (40-150); ANION GAP 14.4 mmol/L (8-16); BLOOD UREA NITROGEN 14 mg/dL (7-26); BUN/CREATININE RATIO 21 (6-25); CARBON DIOXIDE 22 mmol/L (22-29); CHLORIDE 107 mmol/L (98-107); CREATINE KINASE 36 IU/L (29-168); CREATININE, SERUM 0.67 mg/dL (0.57-1.11); EST GLOMERULAR FILTRATION RATE > 60 ML/MIN (60-); GLUCOSE 102 mg/dL (74-118); POTASSIUM 3.4 mmol/L (3.5-5.1); SODIUM 140 mmol/L (136-145)
[2018-09-15] MEDS ORDERED: KETOROLAC TROMETHAMINE 60 MG/2 ML VIAL IM ONE
== END 2018-09-15 01:30 | disposition home or self-care (01) ==
LOC: ER 22:39
DX: R07.89 Other chest pain (principal)
CPT/HCPCS: 36415; 71045; 80053; 82550; 82553; 83880; 84484; 85025; 85610; 85730; 93005; 99283; J1885

== ENCOUNTER 2018-09-15 15:02 | Emergency (ER) | payer OTHER ==
--- NOTE | 2018-09-15 15:52 | NUR ---
THIS PT REGISTERED IN ERROR. PT HERE FOR MEDICAL RECORDS NOT TO BE A PATIENT.
== END 2018-09-15 15:56 | disposition short-term general hospital (02) ==
LOC: ER 15:02
DX: R69 Illness, unspecified (principal)

== ENCOUNTER 2019-05-21 08:37 | Emergency (ER) | payer OTHER ==
[~2019-05-21] VITALS: Ht 162.6 cm; Wt 81.6 kg
--- OUTSIDE RECORDS SUMMARY | 2019-05-21 08:42 | XMS REPORT | Summary of Care ---
Author Author [facility] - [facility] Organization [facility] - Health Address Unknown Phone Unavailable Care Team Providers Care Beam Saw Operator Name Role Phone Pcp, Patient Does Not Have A PCP Reason for Visit * Reason Comments Assessment Blood Pressure low Fever Encounter Details Care Team Description Date Type Department Lori Haley [address] [address] [phone] Assessment; Blood Pressure (low); Fever 02/25/2019 [facility]phone [facility] [address] [place] [phone] Allergies Comments Active Allergy Reactions Severity Noted Date Adalimumab Nausea and/or 09/06/2018 Vomiting Penicillins Unknown - See 12/20/2017 comments documented as of this encounter (statuses as of 02/26/2019) Medications End Date Status Medication Sig Dispensed Refills Start Date Active methotrexate 2.5 mg Take 8 96 tablet 1 tabletIndications: tablets by 9 Rheumatoid arthritis, mouth weekly. involving unspecified site, unspecified rheumatoid factor presence Active predniSONE 5 mg Take 1 tablet 90 tablet 1 tabletIndications: daily 9 Rheumatoid arthritis involving multiple sites with positive rheumatoid factor 05/18/2019 Active tofacitinib (XELJANZ) 5 Take 1 tablet 180 tablet 1 mg tabletIndications: by mouth 2 9 Seropositive rheumatoid (two) times arthritis daily for 90 days. Active SERTraline 25 mg Take 1 tablet 30 tablet 1 tabletIndications: by mouth 9 Anxiety daily. Active cetirizine 10 mg Take 1 tablet 90 tablet 3 tabletIndications: by mouth 9 Seasonal allergies daily. Active fluticasone propionate Use 2 Sprays 16 g 2 (ALLERGY RELIEF, in each 9 FLUTICASONE,) 50 nostril mcg/actuation nasal daily. sprayIndications: Seasonal allergies documented as of this encounter (statuses as of 02/26/2019) Active Problems Problem Noted Date Obesity (BMI 30-39.9) 01/03/2019 LLQ pain 09/24/2018 Family history of nephrolithiasis 09/24/2018 Elevated BP without diagnosis of hypertension 09/06/2018 Benign essential microscopic hematuria 05/10/2018 Disability examination 03/28/2018 supervisor intermediates (current) use of systemic steroids 02/22/2018 Other chronic pain 02/21/2018 Therapeutic drug monitoring 12/20/2017 Immunization counseling 12/20/2017 Transaminitis 12/20/2017 Rheumatoid arthritis involving multiple sites with positive rheumatoid 12/20/2017 factor: RF 1000, CCP 206 At risk for bone density loss 12/20/2017 Iron deficiency anemia 12/20/2017 [facility] current use of non-steroidal anti-inflammatories (NSAID) 12/20/2017 documented as of this encounter (statuses as of 02/26/2019) Immunizations Name Administration Dates Next Due TDAP (ADACEL) VACCINE 01/08/2019 documented as of this encounter Social History Date Tobacco Use Types Packs/Day Years Used Never Smoker Smokeless Tobacco: Never Used Drinks/Week oz/Week Comments Alcohol Use No Sex Assigned at Date Recorded Not on file Industry Job Start Date Occupation Not on file Not on file Not on file Travel End Travel History Travel Start No recent travel history available. documented as of this encounter Last Filed Vital Signs Not on filedocumented in this encounter Plan of Treatment Care Team Description Date Type Specialty Rea Jaquez MD [address] [place] [address] [phone] 05/13/2019 Office Visit Rheumatology Shiva Waddell DO [address] [place] [address] [phone] 09/02/2019 Office Visit Internal Medicine Health Maintenance Due Date Last Done Comments INFLUENZA VACCINE 03/30/2019 MAMMOGRAM 10/11/2019 10/10/2018 PAP SMEAR 01/03/2022 01/03/2019 DTaP,Tdap,and Td Vaccines 01/08/2029 01/08/2019 (2 - Td) PNEUMOCOCCAL 0-64 YEARS Aged Out No longer eligible based COMBINED SERIES on patient's age to complete this topic documented as of this encounter Results Not on filedocumented in this encounter Insurance Type Payer Benefit Subscriber ID Effective Phone Address Plan / Dates Group Medicaid [place] [facility] [place] xxxxxxxxx 2018- PLAN - MANAGED MEDICAID CHILDRENS Present HEALTH documented as of this encounter
--- OUTSIDE RECORDS SUMMARY | 2019-05-21 08:42 | XMS REPORT | Summary of Care ---
Author Author [facility] - Health Organization [facility] - Health Address Unknown Phone Unavailable Care Team Providers Care Paint Prep Technician Name Role Phone Pcp, Patient Does Not Have A PCP Encounter Details Care Team Description Date Type Department Doctor Unassigned, [place] [address] [place] [address] 02/14/2019 Patient Secure [facility] [employer] Messages Msg [address] [place] [phone] Allergies Comments Active Allergy Reactions Severity Noted Date Adalimumab Nausea and/or 09/06/2018 Vomiting Penicillins Unknown - See 12/20/2017 comments documented as of this encounter (statuses as of 03/22/2019) Medications End Date Status Medication Sig Dispensed [...] (two) times arthritis daily for 90 days. documented as of this encounter (statuses as of 03/22/2019) Active Problems Problem Noted Date Obesity (BMI 30-39.9) 01/03/2019 LLQ pain 09/24/2018 Family history of nephrolithiasis 09/24/2018 Elevated BP without diagnosis of hypertension 09/06/2018 Benign essential microscopic hematuria 05/10/2018 Disability examination 03/28/2018 group home (current) use of systemic steroids 02/22/2018 Other chronic pain 02/21/2018 Therapeutic drug monitoring 12/20/2017 Immunization counseling 12/20/2017 Transaminitis 12/20/2017 Rheumatoid arthritis involving multiple sites with positive rheumatoid 12/20/2017 factor: RF 1000, CCP 206 At risk for bone density loss 12/20/2017 Iron deficiency anemia 12/20/2017 group home current use of non-steroidal anti-inflammatories (NSAID) 12/20/2017 documented as of this encounter (statuses as of 03/22/2019) Immunizations Name Administration Dates Next Due TDAP [...] Treatment Care Team Description Date Type Specialty SorensenYinka [facility] [address] [facility] [id number] [place], [place] [phone] 1, Clc [facility] Usg Room 04/08/2019 Office Visit Maternal Medicine Rea Jaquez MD [address] [place] [phone] 05/13/2019 Office Visit Rheumatology Shiva Waddell DO [address] [place] [phone] 09/02/2019 Office Visit Internal Medicine Health Maintenance Due Date Last Done Comments INFLUENZA VACCINE (#1) 2019 MAMMOGRAM 10/11/2019 10/10/2018 PAP SMEAR 01/03/2022 01/03/2019 [...]
--- OUTSIDE RECORDS SUMMARY | 2019-05-21 08:42 | XMS REPORT | Summary of Care ---
Author Author [facility] - Health Organization [facility] - Health Address Unknown Phone Unavailable Care Team Providers Care Milk Vendor Name Role Phone Pcp, Patient Does Not Have A PCP Reason for Referral * (Routine) Referred By Contact Referred To Contact Status Reason Specialty Diagnoses / Procedures Larissa Dempsey MD [address] [place] [phone] New Request Diagnostic Diagnoses Radiology Ovarian cyst, complex P rocedures GYNECOLOGIC ULTRASOUND, PELVIC ULTRASOUND Which clinic location? [facility] ([place]) Reason for Visit * Reason Comments Follow-up Encounter Details Care Team Description Date Type Department Larissa Dempsey MD [address] [place] [phone] Petr Schmidt MD [address] [place] [address]. [place] [phone] Anxiety (Primary Dx); Seasonal allergies; Ovarian cyst, complex 02/25/2019 Office Visit [facility] Internal Medicine- Multispecialty Ctr [address] [place] [phone] Allergies Comments Active Allergy Reactions Severity Noted Date Adalimumab Nausea and/or 09/06/2018 Vomiting Penicillins Unknown - See 12/20/2017 comments documented as of this encounter (statuses as of 02/28/2019) Medications End Date Status Medication Sig Dispensed [...] as of this encounter (statuses as of 02/28/2019) Active Problems Problem Noted Date Obesity (BMI 30-39.9) 01/03/2019 LLQ pain 09/24/2018 Family history of nephrolithiasis 09/24/2018 Elevated BP without diagnosis of hypertension 09/06/2018 Benign essential microscopic hematuria 05/10/2018 Disability examination 03/28/2018 skilled nursing (current) use of systemic steroids 02/22/2018 Other chronic pain 02/21/2018 Therapeutic drug monitoring 12/20/2017 Immunization counseling 12/20/2017 Transaminitis 12/20/2017 Rheumatoid arthritis involving multiple sites with positive rheumatoid 12/20/2017 factor: RF 1000, CCP 206 At risk for bone density loss 12/20/2017 Iron deficiency anemia 12/20/2017 skilled nursing current use of non-steroidal anti-inflammatories (NSAID) 12/20/2017 documented as of this encounter (statuses as of 02/28/2019) Immunizations Name Administration Dates Next Due TDAP [...] of this encounter Last Filed Vital Signs Reading Time Taken Comments Vital Sign 118/78 02/25/2019 1:45 PM CDT Blood Pressure 79 02/25/2019 1:45 PM CDT Pulse 37.6 C (99.7 F) 02/25/2019 1:07 PM CDT Temperature - - Respiratory Rate 97% 02/25/2019 1:07 PM CDT Oxygen Saturation - - Inhaled Oxygen Concentration 88.9 kg (195 lb 14.4 oz) 02/25/2019 1:07 PM CDT Weight - - Height 33.63 01/03/2019 8:22 AM CDT Body Mass Index documented in this encounter Progress Notes * Larissa Dempsey MD - 02/25/2019 1:30 PM CDT I discussed this patient with resident, Dr. Schmidt, during patient's office visi t on 02/25/2019 and agree with the resident's note as written with the following exception: CC: f/u headaches, anxiety. Patient presenting for f/u appointment. Also has runny nose, headache, congesti on- prescribed OTC meds for management. She also has anxiety- recommend startin g on SSRI. I actively participated in the decision-making process. Please refer to the re sident's note for additional details Larissa Dempsey MD, MPH [facility] Internal Medicine * Petr Schmidt MD - 02/25/2019 1:30 PM CDT Cc: Chief Complaint Patient presents with Follow-up Spring Nieto is a 48 year old female. Ms. Nieto is a 47 year-old female with rheumatoid arthritis, anxiety, and seaso nal allergies who presents for follow up. She reports that she began having headaches approximately mid-December, mainly confi john to the frontal portion of her head. She also reports her seasonal allergies have been worse since then and she has had worsening congestion and rhinorrhea s josh then as well. She thought that the xeljanz 11 mg qd was too high of a dose all at the same time so she stopped taking it and discussed it with her rheumato logist. She reports her goggles assembler believed it was more likely due to her al lergies but her goggles assembler agreed to change her xeljanz dose to 5 mg bid. Qasim morgan, her new xeljanz prescription is still pending insurance approval since sunday despite her calling to the goggles assembler's office multiple times. She has now been off xeljanz for 2 weeks and her allergies, congestion, and headach es have continued. She has not tried any medications to assist with relieving he r headaches and allergies. She also reports anxiety everyday as well as palpitations occasionally. She feel s she has a lot going on and she can tell her rheumatoid arthritis has been a li ttle bit worse while she has been off the xeljanz. She is also concerned about h er daughter which also feeds into her anxiety. She is willing to try the lowest dose of zoloft though she does not like taking pills if it will help her anxiety . Allergies Spring is allergic to humira [adalimumab] and pcn [penicillins]. Medications Outpatient Medications Prior to Visit Medication Sig Dispense Refill tofacitinib (XELJANZ) 5 mg tablet Take 1 tablet by mouth 2 (two) times daily for 90 days. 180 tablet 1 predniSONE 5 mg tablet Take 1 tablet daily 90 tablet 1 methotrexate 2.5 mg tablet Take 8 tablets by mouth weekly. 96 tablet 1 No facility-administered medications prior to visit. Histories Past Medical History: Diagnosis Date Arthritis Carpal tunnel syndrome Plantar fasciitis Rheumatoid arthritis Past Surgical History: Procedure Laterality Date CHOLECYSTECTOMY TUBAL LIGATION Social History Socioeconomic History Marital status: Single Spouse name: Not on file Number of children: Not on file Years of education: Not on file Highest education level: Not on file Occupational History Not on file Social Needs Financial resource strain: Not on file Food insecurity: Worry: Not on file Inability: Not on file Transportation needs: Medical: Not on file Non-medical: Not on file Tobacco Use Smoking status: Never Smoker Smokeless tobacco: Never Used Substance and Sexual Activity Alcohol use: No Drug use: No Sexual activity: Yes Partners: Male control/protection: Surgical Lifestyle Physical activity: Days per week: Not on file Minutes per session: Not on file Stress: Not on file Relationships Social connections: Talks on phone: Not on file Gets together: Not on file Attends amish service: Not on file Active member of club or organization: Not on file Attends meetings of clubs or organizations: Not on file Relationship status: Not on file Intimate partner violence: Fear of current or ex partner: Not on file Emotionally abused: Not on file Physically abused: Not on file Forced sexual activity: Not on file Other Topics Concern Not on file Social History Narrative In a relationship, 6 children Family History Problem Relation Age of Onset Cancer Mother OVARIAN Arthritis Daughter RA Breast Cancer Maternal Aunt Review of Systems Constitutional: Positive for fatigue. HENT: Positive for congestion, rhinorrhea and sinus pressure. Respiratory: Negative for shortness of breath. Cardiovascular: Negative for chest pain. Gastrointestinal: Negative for abdominal pain. Neurological: Positive for headaches. Vital Signs BP 118/78 (BP Location: Right arm, Patient Position: Standing) | Pulse 79 | Te mp 37.6 C (99.7 F) (Tympanic) | Wt 195 lb 14.4 oz (88.9 kg) | SpO2 97% | BMI 33.63 kg/m Physical Exam Constitutional: She appears well-developed and well-nourished. Tearful during interview while talking about stressors HENT: Head: Normocephalic and atraumatic. Eyes: No scleral icterus. Cardiovascular: Normal rate and regular rhythm. Pulmonary/Chest: Effort normal and breath sounds normal. No respiratory distress . Abdominal: Soft. She exhibits no distension. There is no tenderness. Skin: She is not diaphoretic. Psychiatric: She has a normal mood and affect. Vitals reviewed. Assessment/Plan Ms. Nieto is a 47 year-old female with rheumatoid arthritis, anxiety, and seaso nal allergies who presents for follow up. #Congestion #Headaches #Seasonal Allergies - flonase and zyrtec - headaches seem less likely due to xeljanz as patient has been off of medicatio n for almost 2 weeks #Anxiety - CHANDLER 2 score at least 3 - start zoloft 25 mg qd; patient prefers 1 month supply with 1 refill and will u pdate if she would like it to be uptitrated #Rheumatoid Arthritis - c/w methotrexate, folic acid - c/w prednisone 2.5 mg qd until rheum appointment - f/u with rheum; xeljanz pending approval from insurance company #Complex L Ovarian Cyst - repeat pelvic US in 2-4 weeks (future order placed); return to ORTHOPEDIC NURSE PRACTITIONER clinic i f US still abnormal Patient was discussed with Dr. Dempsey who was available for consultation throu ghout the visit. Petr Schmidt M.D. [facility] Internal Medicine PGY-2 * Denise Page - 02/25/2019 1:30 PM CDT PT C/O NAUSEA, FATIGUE AND FREQUENT HEADACHES. * Camilo Denise Looney - 02/25/2019 1:30 PM CDT Spring Nieto is a 48 year old female Chief Complaint Patient presents with Follow-up documented in this encounter Plan of Treatment Care Team Description Date Type Specialty Rea Jaquez MD [address] [place] [phone] 05/13/2019 Office Visit Rheumatology Shiva Waddell DO [address] [place] [phone] 09/02/2019 Office Visit Internal Medicine Order Schedule Name Type Priority Associated Diagnoses Expected: 03/10/2019, Expires: 08/27/2020 GYNECOLOGIC ULTRASOUND, PROCEDURES Routine Ovarian cyst, complex PELVIC ULTRASOUND Which clinic location? [facility] Health Maintenance Due Date Last Done Comments INFLUENZA VACCINE 03/30/2019 MAMMOGRAM 10/11/2019 10/10/2018 PAP SMEAR 01/03/2022 01/03/2019 DTaP,Tdap,and Td Vaccines 01/08/2029 01/08/2019 (2 - Td) PNEUMOCOCCAL 0-64 YEARS Aged Out No longer eligible based COMBINED SERIES on patient's age to complete this topic documented as of this encounter Results Not on filedocumented in this encounter Visit Diagnoses Diagnosis Anxiety - Primary Anxiety state, unspecified Seasonal allergies Allergic rhinitis, cause unspecified Ovarian cyst, complex Other and unspecified ovarian cyst documented in this encounter Insurance Type Payer Benefit Subscriber ID Effective Phone Address Plan / Dates Group Medicaid [facility] [place] xxxxxxxxx 2018- PLAN - MANAGED MEDICAID [facility] documented as of this encounter"
--- OUTSIDE RECORDS SUMMARY | 2019-05-21 08:42 | XMS REPORT | Summary of Care ---
Author Author [facility] - Health Organization [facility] - Health Address Unknown Phone Unavailable Care Team Providers Care Alarm Installer Name Role Phone Pcp, Patient Does Not Have A PCP Reason for Referral * (Routine) Referred By Contact Referred To Contact Status Reason Specialty Diagnoses / Procedures Larissa Dempsey MD [address] [place] [phone] New Request Diagnostic Diagnoses Radiology Ovarian cyst, complex P rocedures GYNECOLOGIC ULTRASOUND, PELVIC ULTRASOUND Which clinic location? [facility] ([place]) Reason for Visit * Reason Comments Follow-up Encounter Details Care Team Description Date Type Department Larissa Dempsey MD [address] [place] [phone] Petr Schmidt MD [address] [place] [address]. [place] [phone] Anxiety (Primary Dx); Seasonal allergies; Ovarian cyst, complex 02/25/2019 Office Visit [facility] Internal Medicine- Multispecialty Ctr [address] [place] [phone] Allergies Comments Active Allergy Reactions Severity Noted [...] essential microscopic hematuria 05/10/2018 Disability examination 03/28/2018 intermediate (current) use of systemic steroids 02/22/2018 Other chronic pain 02/21/2018 Therapeutic drug monitoring 12/20/2017 Immunization counseling 12/20/2017 Transaminitis 12/20/2017 Rheumatoid arthritis involving multiple sites with positive rheumatoid 12/20/2017 factor: RF 1000, CCP 206 At risk for bone density loss 12/20/2017 Iron deficiency anemia 12/20/2017 intermediate current use of non-steroidal anti-inflammatories (NSAID) 12/20/2017 [...] and agree with the resident's note as written. Patient presenting for f/u appointment. Also has runny nose, headache, congestion- prescribed OTC meds for management. She also has anxiety- recommend starting on SSRI. I john ruth participated in the decision-making process. Please refer to the resident' s note for additional details Larissa Dempsey MD, MPH [facility] Internal Medicine * Petr Schmidt MD [...] with her rheumato logist. She reports her hospital admissions officer believed it was more likely due to her al lergies but her hospital admissions officer agreed to change her xeljanz dose to 5 mg bid. Ho wever, her new xeljanz prescription is still pending insurance approval since sunday despite her calling to the hospital admissions officer's office multiple times. She has now been [...] file Gets together: Not on file Attends advent service: Not on file Active member of [...] 2-4 weeks (future order placed); return to QUALITY IMPROVEMENT COORDINATOR clinic i f US still abnormal Patient was discussed with Dr. Dempsey who was available for consultation throu ghout the visit. Petr Schmidt M.D. [facility] Internal Medicine PGY-2 * Tiffanie Pagejuliano Looney - 02/25/2019 1:30 PM CDT PT C/O NAUSEA, FATIGUE AND FREQUENT HEADACHES. * PageDenise xie Aure - 02/25/2019 1:30 PM CDT Spring Nieto is a 48 year old female Chief Complaint Patient presents with Follow-up documented in this encounter Plan of Treatment Care Team Description Date Type Specialty Rea Jaquez MD [address] [place] [phone] 05/13/2019 Office Visit Rheumatology Shiva Waddell DO [address] [place] [phone] 09/02/2019 Office Visit Internal Medicine Order Schedule Name Type Priority Associated Diagnoses Expected: 03/10/2019, Expires: 08/27/2020 GYNECOLOGIC ULTRASOUND, PROCEDURES Routine Ovarian cyst, complex PELVIC ULTRASOUND Which clinic location? [facility] Health Maintenance Due Date Last Done Comments [...]
--- OUTSIDE RECORDS SUMMARY | 2019-05-21 08:42 | XMS REPORT | Summary of Care ---
Author Author [facility] - Health Organization [facility] - Health Address Unknown Phone Unavailable Care Team Providers Care Solar Energy Specialist Name Role Phone Pcp, Patient Does Not Have A PCP Reason for Visit * Reason Comments Assessment Rx Concern/Question Medication Assistance Encounter Details Care Team Description Date Type Department Rea Jaquez MD [address] [place] [phone] Assessment; Rx Concern/Question; Medication Assistance 03/24/2019 [facility] [address] [place] [phone] Allergies Comments Active Allergy Reactions Severity Noted Date Adalimumab Nausea and/or 09/06/2018 Vomiting Penicillins Unknown - See 12/20/2017 comments documented as of this encounter (statuses as of 03/26/2019) Medications End Date Status Medication Sig Dispensed [...] as of this encounter (statuses as of 03/26/2019) Active Problems Problem Noted Date Obesity (BMI 30-39.9) 01/03/2019 LLQ pain 09/24/2018 Family history of nephrolithiasis 09/24/2018 Elevated BP without diagnosis of hypertension 09/06/2018 Benign essential microscopic hematuria 05/10/2018 Disability examination 03/28/2018 longterm (current) use of systemic steroids 02/22/2018 Other chronic pain 02/21/2018 Therapeutic drug monitoring 12/20/2017 Immunization counseling 12/20/2017 Transaminitis 12/20/2017 Rheumatoid arthritis involving multiple sites with positive rheumatoid 12/20/2017 factor: RF 1000, CCP 206 At risk for bone density loss 12/20/2017 Iron deficiency anemia 12/20/2017 manager terminal current use of non-steroidal anti-inflammatories (NSAID) 12/20/2017 documented as of this encounter (statuses as of 03/26/2019) Immunizations Name Administration Dates Next Due TDAP [...] Treatment Care Team Description Date Type Specialty [facility]inka [facility]enh [address] [facility] [id number] [place], [place] [address] 1, Clc [facility] Usg Room 04/08/2019 Office Visit Maternal Medicine Rea Jaquez MD [address] [place] [phone] 05/13/2019 Office Visit Rheumatology Shiva Waddell DO [address] [place] [phone] 09/02/2019 Office Visit Internal Medicine Health [...] Phone Address Plan / Dates Group Medicaid [facility] [place] xxxxxxxxx 2018- PLAN - MANAGED MEDICAID [facility] documented as of this encounter
--- OUTSIDE RECORDS SUMMARY | 2019-05-21 08:42 | XMS REPORT | Summary of Care ---
Author Author [facility] - Health Organization [facility] - Health Address Unknown Phone Unavailable Care Team Providers Care Batch Still Operator Name Role Phone Pcp, Patient Does Not Have A PCP Reason for Visit * Reason Comments Assessment Rx Concern/Question Medication Assistance Encounter Details Care Team Description Date Type Department Rea Jaquez MD [address] [place] [phone] Assessment; Rx Concern/Question; Medication Assistance 03/24/2019 Telephone [facility] [address] [place] [phone] Allergies Comments Active Allergy Reactions Severity Noted [...] essential microscopic hematuria 05/10/2018 Disability examination 03/28/2018 correction (current) use of systemic steroids 02/22/2018 Other chronic pain 02/21/2018 Therapeutic drug monitoring 12/20/2017 Immunization counseling 12/20/2017 Transaminitis 12/20/2017 Rheumatoid arthritis involving multiple sites with positive rheumatoid 12/20/2017 factor: RF 1000, CCP 206 At risk for bone density loss 12/20/2017 Iron deficiency anemia 12/20/2017 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 current use of non-steroidal anti-inflammatories (NSAID) 12/20/2017 [...] Description Date Type Specialty [facility]inka [facility]nsenh [address] [facility] [id number] [place], [place] [phone] 1, Clc [facility] Usg Room 04/08/2019 Office Visit Maternal Medicine Rea Jaquez MD [address] [place] [phone] 05/13/2019 Office Visit Rheumatology Shiva Waddell DO [address] [place] [phone] 09/02/2019 Office Visit Internal Medicine Health [...] Phone Address Plan / Dates Group Medicaid [facility] [place] xxxxxxxxx 2018- PLAN - MANAGED MEDICAID [facility] documented as of this encounter
--- OUTSIDE RECORDS SUMMARY | 2019-05-21 08:42 | XMS REPORT | Summary of Care ---
Author Author [facility] - Health Organization [facility] - Health Address Unknown Phone Unavailable Care Team Providers Care Manager Human Capital Name Role Phone Pcp, Patient Does Not Have A PCP Reason for Visit * Reason Comments Cough Encounter Details Care Team Description Date Type Department Unknown, Attending Care, Vls Adult Urgent URI with cough and congestion (Primary Dx); Sore throat (viral); Nasal congestion 04/03/2019 Urgent Care [facility], [address] [place] [address] Allergies Comments Active Allergy Reactions Severity Noted Date Adalimumab Nausea and/or 09/06/2018 Vomiting Penicillins Unknown - See 12/20/2017 comments documented as of this encounter (statuses as of 04/03/2019) Medications End Date Status Medication Sig Dispensed [...] tabletIndications: by mouth 9 Anxiety daily. Active fluticasone propionate Use 2 Sprays 16 g 2 (ALLERGY RELIEF, in each 9 FLUTICASONE,) 50 nostril mcg/actuation nasal daily. sprayIndications: Seasonal allergies Active cetirizine 10 mg Take 1 tablet 90 tablet 3 tabletIndications: by mouth 9 Seasonal allergies daily. 04/10/2019 Active benzonatate (TESSALON Take 1 21 capsule 0 PERLES) 100 mg capsule by 9 capsuleIndications: URI mouth every 8 with cough and congestion (eight) hours as needed for Cough for up to 7 days. 04/10/2019 Active pseudoephedrine 30 mg Take 1 tablet 30 tablet 0 tabletIndications: URI by mouth 9 with cough and congestion every 6 (six) hours as needed (chest congestion) for up to 7 days. 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 02/22/2018 Other chronic pain 02/21/2018 Therapeutic drug monitoring 12/20/2017 Immunization counseling 12/20/2017 Transaminitis 12/20/2017 Rheumatoid arthritis involving multiple sites with positive rheumatoid 12/20/2017 factor: RF 1000, CCP 206 At risk for bone density loss 12/20/2017 Iron deficiency anemia 12/20/2017 penitentiary current use of non-steroidal anti-inflammatories (NSAID) 12/20/2017 documented as of this encounter (statuses as of 04/03/2019) Immunizations Name Administration Dates Next Due TDAP [...] Signs Not on filedocumented in this encounter Patient Instructions * Patient Instructions* Lee Barnett FNP - 04/03/2019 3:45 PM CDT Viral Upper Respiratory Illness (Adult) You have a viral upper respiratory illness (URI), which is another term for the common cold. This illness is contagious during the first few days. It is spread through the air by coughing and sneezing. It may also be spread by direct contac t (touching the sick person and then touching your own eyes, nose, or mouth). Fr equent handwashing will decrease risk of spread. Most viral illnesses go away wi thin 7 to 10 days with rest and simple home remedies. Sometimes the illness may last for several weeks. Antibiotics will not kill a virus, and they are generall y not prescribed for this condition. Home care If symptoms are severe, rest at home for the first 2 to 3 days. When you resu me activity, don't let yourself get too tired. Avoid being exposed to cigarette smoke (yours or others). You may use acetaminophen or ibuprofen to control pain and fever, unless anot her medicine was prescribed.If you have chronic liver or kidney disease, have ever had a stomach ulcer or gastrointestinal bleeding, or are taking blood-thinn ing medicines, talk with your healthcare provider before using these medicines. Aspirin should never be given to anyone under 18 years of age who is ill with a viral infection or fever. It may cause severe liver or brain damage. Your appetite may be poor, so a light diet is fine. Avoid dehydration by anisa aj 6 to 8 glasses of fluids per day (water, soft drinks, juices, tea, or soup) . Extra fluids will help loosen secretions in the nose and lungs. Qrke-vxy-pwqozlu cold medicines will not shorten the length of time youre sick, but they may be helpful for the following symptoms: cough, sore throat, an d nasal and sinus congestion. (Note: Do not use decongestants if you have high b lood pressure.) Follow-up care Follow up with your healthcare provider, or as advised. When to seek medical advice Call your healthcare provider right away if any of these occur: Cough with lots of colored sputum (mucus) Severe headache; face, neck, or ear pain Difficultyswallowingdue to throat pain Fever of 100.4F (38C) or higher, or as directed by your healthcare provid er Call 911 Call 911 if any of these occur: Chest pain, shortness of breath, wheezing, or difficulty breathing Coughing up blood Inability to swallow due to throat pain Date Last Reviewed: 04/11/201519991665-6453 [employer]. [address] [place] [address] 1906 7. All rights reserved. This information is not intended as a substitute for pro fessional medical care. Always follow your healthcare professional's instruction s. When You Have a Sore Throat A sore throat can be painful. There are many reasons why you may have a sore thr oat. Your healthcare provider will work with you to find the cause of your sore throat. He or she will also find the best treatment for you. What causes a sore throat? Sore throats can be caused or worsened by: Cold or flu viruses Bacteria Irritants such as tobacco smoke or air pollution Acid reflux A healthy throat The tonsils are on the sides of the throat near the base of the tongue. They col lect viruses and bacteria and help fight infection. The throat (pharynx) is the passage for air. Mucus from the nasal cavity also moves down the passage. An inflamed throat The tonsils and pharynx can become inflamed due to a cold or flu virus. Postnasa l drip (excess mucus draining from the nasal cavity) can irritate the throat. It can also make the throat or tonsils more likely to be infected by bacteria. Sev ere, untreated tonsillitis in children or adults can cause a pocket of pus (absc ess) to form near the tonsil. Your evaluation A medical evaluation can help find the cause of your sore throat. It can also he lp your healthcare providerchoose the best treatment for you. The evaluation m ay include a health history, physical exam, and diagnostic tests. Health history Your healthcare provider may ask you the following: How long has the sore throat lasted and how have you been treating it? Do you have any other symptoms, such as body aches, fever, or cough? Does your sore throat recur? If so, how often? How many days of school or wor k have you missed because of a sore throat? Do you have trouble eating or swallowing? Have you been told that you snore or have other sleep problems? Do you have bad breath? Do you cough up bad-tasting mucus? Physical exam During the exam, your healthcare provider checks your ears, nose, and throat for problems. He or she also checks for swelling in the neck, and may listen to your chest. Possible tests Other tests your healthcare provider may perform include: A throat swab to check for bacteria such asstreptococcus (the bacteria that causes strep throat) A blood test to check for mononucleosis (a viral infection) A chest X-ray to rule out pneumonia, especially if you have a cough Treating a sore throat Treatment depends on many factors. What is the likely cause? Is the problem rece nt? Does it keep coming back? In many cases, the best thing to do is to treat th e symptoms, rest, and let the problem heal itself. Antibiotics may help clear up some bacterial infections. For cases of severe or recurring tonsillitis, the to nsils may need to be removed. Relieving your symptoms Dont smoke, and avoid secondhand smoke. For children, try throat sprays or Popsicles. Adults and older children may t ry lozenges. Drink warm liquids to soothe the throat and help thin mucus. Avoid alcohol, s picy foods, and acidic drinks such as orange juice. These can irritate the throa t. Gargle with warm saltwater (1teaspoon of salt zz2wnsman of warm water). Use a humidifier to keep air moist and relieve throat dryness. Try xait-ppc-gwyerub pain relievers such as acetaminophen or ibuprofen. Use a s directed, and dont exceed the recommended dose. Dont give aspirin to chi ldren. Are antibiotics needed? If your sore throat is due to a bacterial infection, antibiotics may speed heali ng and prevent complications. Although group A streptococcus ("strep throat" or GAS) is the major treatable infection for a sore throat, GAS causes only 5% to 1 5% of sore throats in adults who seek medical care. Most sore throats are caused by cold or flu viruses. And antibiotics dont treat viral illness. In fact, u sing antibiotics when theyre not needed may produce bacteria that are harder to kill. Your healthcare provider will prescribe antibiotics only if he or she t hinks they are likely to help. If antibiotics are prescribed Take the medicine exactly as directed. Be sure to finish your prescription even if youre feeling better. And be sure to ask your healthcare provider or pharm acist what side effects are common and what to do about them. Is surgery needed? In some cases, tonsils need to be removed. This is often done as outpatient (parag e-day) surgery. Your healthcare provider may advise removing the tonsils in case s of: Several severe bouts of tonsillitis in a year. Severe episodes include those that lead to missed days of school or work, or that need to be treated wit h antibiotics. Tonsillitis that causes breathing problems during sleep Tonsillitis caused by food particles collecting in pouches in the tonsils (cr yptic tonsillitis) Call your healthcare provider if any of the following occur: Symptoms worsen, or new symptoms develop. Swollen tonsils make breathing difficult. The pain is severe enough to keep you from drinking liquids. A skin rash, hives, or wheezing develops. Any of these could signal an allerg ic reaction to antibiotics. Symptoms dont improve within a week. Symptoms dont improve within2 to 3days of starting antibiotics. Date Last Reviewed: 04/29/201619998281-6532 [employer]. [address] [place] [address] 7. All rights reserved. This information is not intended as a substitute for pro fessional medical care. Always follow your healthcare professional's instruction s. documented in this encounter Progress Notes * Lee Barnett FNP - 04/03/2019 3:45 PM CDT Cc: Chief Complaint Patient presents with Cough Spring Nieto is a 48 year old female. Cough Cough characteristics: Productive Sputum characteristics: Yellow Severity: Moderate Onset quality: Sudden Duration: 3 days Timing: Constant Progression: Unchanged Chronicity: New Smoker: no Relieved by: Nothing Worsened by: Nothing Ineffective treatments: Cough suppressants Associated symptoms: sinus congestion and sore throat Sore Throat Location: Generalized Quality: Sore Onset quality: Sudden Duration: 3 days Timing: Intermittent Chronicity: New Relieved by: Nothing Worsened by: Nothing Associated symptoms: cough and sinus congestion Allergies Spring is allergic to humira [adalimumab] and pcn [penicillins]. Medications Outpatient Medications Prior to Visit Medication Sig Dispense Refill cetirizine 10 mg tablet Take 1 tablet by mouth daily. 90 tablet 3 fluticasone propionate (ALLERGY RELIEF, FLUTICASONE,) 50 mcg/actuation nasal spray Use 2 Sprays in each nostril daily. 16 g 2 SERTraline 25 mg tablet Take 1 tablet by mouth daily. 30 tablet 1 tofacitinib (XELJANZ) 5 mg tablet Take 1 [...] file Gets together: Not on file Attends jew service: Not on file Active member of [...] Cancer Maternal Aunt Review of Systems Constitutional: Negative. HENT: Positive for congestion and sore throat. Eyes: Negative. Respiratory: Positive for cough. Breasts: Negative. Cardiovascular: Negative. Gastrointestinal: Negative. Genitourinary: Negative. Musculoskeletal: Negative. Skin: Negative. Neurological: Negative. Psychiatric/Behavioral: Negative. Endocrine: Endocrine negative Vital Signs There were no vitals taken for this visit. Physical Exam Constitutional: She appears well-developed. HENT: Head: Normocephalic. Mouth/Throat: Uvula is midline, oropharynx is clear and moist and mucous membran es are normal. Eyes: Pupils are equal, round, and reactive to light. Neck: Normal range of motion. Cardiovascular: Regular rhythm. Pulmonary/Chest: Effort normal and breath sounds normal. Assessment/Plan 1. URI with cough and congestion - benzonatate (TESSALON PERLES) 100 mg capsule; Take 1 capsule by mouth every 8 (eight) hours as needed for Cough for up to 7 days. Dispense: 21 capsule; Refil l: 0 - pseudoephedrine 30 mg tablet; Take 1 tablet by mouth every 6 (six) hours as ne eded (chest congestion) for up to 7 days. Dispense: 30 tablet; Refill: 0 2. Sore throat (viral) OTC ibuprofen 3. Nasal congestion Continue OTC allergy medication * Wendi Draper RN - 04/03/2019 3:45 PM CDT Spring Nieto is a 48 year old female with patient advising that she has had co ugh and congestion x 3 days. Patient has tried otc meds without relief. Patient denies fever and chills. Patient reports that she feels wheezing in her chest wi th deep breathe. documented in this encounter Plan of Treatment Care Team Description Date Type Specialty SorensenYasmany sotelogeovanni [place] [address] [facility] [id number] [place] [address] [phone] 1, [facility] Room 04/08/2019 Office Visit Maternal Medicine Rea Jaquez MD [address] [place] [phone] 05/13/2019 Office Visit Rheumatology Shiva Waddell DO [address] [place] [phone] 09/02/2019 Office Visit Internal Medicine Health [...] filedocumented in this encounter Visit Diagnoses Diagnosis URI with cough and congestion - Primary Sore throat (viral) Acute pharyngitis Nasal congestion Other diseases of nasal cavity and sinuses documented in this encounter Insurance Type Payer Benefit Subscriber ID Effective Phone Address Plan / Dates Group Medicaid [facility] [place] xxxxxxxxx 2018- PLAN - MANAGED MEDICAID [facility] documented as of this encounter
--- OUTSIDE RECORDS SUMMARY | 2019-05-21 08:42 | XMS REPORT | Summary of Care ---
Author Author [facility] - Health Organization [facility] - Health Address Unknown Phone Unavailable Care Team Providers Care Surveillance Monitor Name Role Phone Pcp, Patient Does Not Have A PCP Reason for Referral * (Routine) Referred By Contact Referred To Contact Status Reason Specialty Diagnoses / Procedures Larissa Dempsey MD [address] [place] [phone] New Request Diagnostic Diagnoses Radiology Ovarian cyst, complex P rocedures GYNECOLOGIC ULTRASOUND, PELVIC ULTRASOUND Which clinic location? [facility] ([place]) Reason for Visit * Reason Comments Follow-up Encounter Details Care Team Description Date Type Department Larissa Dempsey MD [address] [place] [phone] Petr Schmidt MD [address] [place] [address]. [place] [phone] Anxiety (Primary Dx); Seasonal allergies; Ovarian cyst, complex 02/25/2019 Office Visit [facility] Internal Medicine- [facility] [address] [place] [phone] Allergies Comments Active Allergy Reactions Severity Noted [...] for additional details Larissa Dempsey MD, MPH [facility] Internal Medicine * Petr Schmidt MD - [...] with her rheumato logist. She reports her river boat captain believed it was more likely due to her al lergies but her river boat captain agreed to change her xeljanz dose to 5 mg bid. Ho wever, her new xeljanz prescription is still pending insurance approval since sunday despite her calling to the river boat captain's office multiple times. She has now been [...] file Gets together: Not on file Attends evangelical service: Not on file Active member of [...] 2-4 weeks (future order placed); return to [facility] i f US still abnormal Patient was discussed with Dr. Dempsey who was available for consultation throu ghout the visit. Petr Schmidt M.D. [facility] Internal Medicine PGY-2 * Tiffanie Pagejuliano Looney - 02/25/2019 1:30 PM CDT PT C/O NAUSEA, FATIGUE AND FREQUENT HEADACHES. * PageDenise xie Aure - 02/25/2019 1:30 PM CDT Spring Nieto is a 48 year old female Chief Complaint Patient presents with Follow-up documented in this encounter Plan of Treatment Care Team Description Date Type Specialty Rea Jaquez MD [address] [place] [phone] 05/13/2019 Office Visit Rheumatology Shiva Waddell DO [address] [place] [phone] 09/02/2019 Office Visit Internal Medicine Order Schedule Name Type Priority Associated Diagnoses Expected: 03/10/2019, Expires: 08/27/2020 GYNECOLOGIC ULTRASOUND, PROCEDURES Routine Ovarian cyst, complex PELVIC ULTRASOUND Which clinic location? [facility] Maintenance Due Date Last Done Comments [...]
--- OUTSIDE RECORDS SUMMARY | 2019-05-21 08:42 | XMS REPORT | Summary of Care ---
Author Author [facility] - Health Organization [facility] - Health Address Unknown Phone Unavailable Care Team Providers Care Roller Coaster Designer Name Role Phone Pcp, Patient Does Not Have A PCP Reason for Visit * Reason Comments Refill Request Encounter Details Care Team Description Date Type Department Petr Schmidt MD [address] [place] [phone] Refill Request 03/29/2019 Refill [facility] Internal Medicine- [facility] [address] [place] [phone] Allergies Comments Active Allergy Reactions Severity Noted Date Adalimumab Nausea and/or 09/06/2018 Vomiting Penicillins Unknown - See 12/20/2017 comments documented as of this encounter (statuses as of 04/01/2019) Medications End Date Status Medication Sig Dispensed [...] tabletIndications: by mouth 9 Seasonal allergies daily. 03/29/2019 Discontinued cetirizine 10 mg Take 1 tablet 90 tablet 3 tabletIndications: by mouth 9 Seasonal allergies daily. documented as of this encounter (statuses as of 04/01/2019) Active Problems Problem Noted Date Obesity (BMI 30-39.9) 01/03/2019 LLQ pain 09/24/2018 Family history of nephrolithiasis 09/24/2018 Elevated BP without diagnosis of hypertension 09/06/2018 Benign essential microscopic hematuria 05/10/2018 Disability examination 03/28/2018 residential (current) use of systemic steroids 02/22/2018 Other chronic pain 02/21/2018 Therapeutic drug monitoring 12/20/2017 Immunization counseling 12/20/2017 Transaminitis 12/20/2017 Rheumatoid arthritis involving multiple sites with positive rheumatoid 12/20/2017 factor: RF 1000, CCP 206 At risk for bone density loss 12/20/2017 Iron deficiency anemia 12/20/2017 intermediate manager current use of non-steroidal anti-inflammatories (NSAID) 12/20/2017 documented as of this encounter (statuses as of 04/01/2019) Immunizations Name Administration Dates Next Due TDAP [...] Care Team Description Date Type Specialty Yinka Sorensen [facility] [address] [facility] [id number] [place] [address] 1, [facility] Room 04/08/2019 Office Visit Maternal Medicine Rea Jaquez MD [address] [place] [phone] 05/13/2019 Office Visit Rheumatology Shiva Waddell DO [address] [place] [address], [place] [phone] [phone] 09/02/2019 Office Visit Internal Medicine Health Maintenance [...] filedocumented in this encounter Visit Diagnoses Diagnosis Seasonal allergies Allergic rhinitis, cause unspecified documented in this encounter Insurance Type Payer Benefit Subscriber ID Effective Phone Address Plan / Dates Group Medicaid [facility] [place] xxxxxxxxx 2018- PLAN - MANAGED MEDICAID [facility] documented as of this encounter
--- OUTSIDE RECORDS SUMMARY | 2019-05-21 08:42 | XMS REPORT | Summary of Care ---
Author Author [facility] - Health Organization [facility] - Health Address Unknown Phone Unavailable Care Team Providers Care Direct Sales Representative Name Role Phone Pcp, Patient Does Not Have A PCP Reason for Visit * Reason Comments Medication Assistance Encounter Details Care Team Description Date Type Department Rea Jaquez MD [address] [place] [phone] Medication Assistance [facility]05[facility] [address] [place] [phone] Allergies Comments Active Allergy Reactions Severity Noted Date Adalimumab Nausea and/or 09/06/2018 Vomiting Penicillins Unknown - See 12/20/2017 comments documented as of this encounter (statuses as of 03/06/2019) Medications End Date Status Medication Sig Dispensed [...] as of this encounter (statuses as of 03/06/2019) Active Problems Problem Noted Date Obesity (BMI 30-39.9) 01/03/2019 LLQ pain 09/24/2018 Family history of nephrolithiasis 09/24/2018 Elevated BP without diagnosis of hypertension 09/06/2018 Benign essential microscopic hematuria 05/10/2018 Disability examination 03/28/2018 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 02/22/2018 Other chronic pain 02/21/2018 Therapeutic drug monitoring 12/20/2017 Immunization counseling 12/20/2017 Transaminitis 12/20/2017 Rheumatoid arthritis involving multiple sites with positive rheumatoid 12/20/2017 factor: RF 1000, CCP 206 At risk for bone density loss 12/20/2017 Iron deficiency anemia 12/20/2017 ferry terminal agent current use of non-steroidal anti-inflammatories (NSAID) 12/20/2017 documented as of this encounter (statuses as of 03/06/2019) Immunizations Name Administration Dates Next Due TDAP [...] Description Date Type Specialty Rea Jaquez MD [address] [place] [phone] 05/13/2019 Office Visit Rheumatology Shiva Waddell DO [address] [place] [phone] 09/02/2019 Office Visit Internal Medicine Health [...]
--- OUTSIDE RECORDS SUMMARY | 2019-05-21 08:42 | XMS REPORT | Summary of Care ---
Author Author [facility] - Health Organization [facility] - Health Address Unknown Phone Unavailable Care Team Providers Care Project Coach Name Role Phone Pcp, Patient Does Not Have A PCP Reason for Visit * Reason Comments Assessment Rx Concern/Question Medication Assistance Encounter Details Care Team Description Date Type Department Rea Jaquez MD [address] [place] [phone] Assessment; Rx Concern/Question; Medication Assistance 03/24/2019 Telephone [facility] [address] [place] [phone] Allergies Comments Active Allergy Reactions Severity Noted Date Adalimumab Nausea and/or 09/06/2018 Vomiting Penicillins Unknown - See 12/20/2017 comments documented as of this encounter (statuses as of 03/27/2019) Medications End Date Status Medication Sig Dispensed [...] as of this encounter (statuses as of 03/27/2019) Active Problems Problem Noted Date Obesity (BMI 30-39.9) 01/03/2019 LLQ pain 09/24/2018 Family history of nephrolithiasis 09/24/2018 Elevated BP without diagnosis of hypertension 09/06/2018 Benign essential microscopic hematuria 05/10/2018 Disability examination 03/28/2018 half-way (current) use of systemic steroids 02/22/2018 Other chronic pain 02/21/2018 Therapeutic drug monitoring 12/20/2017 Immunization counseling 12/20/2017 Transaminitis 12/20/2017 Rheumatoid arthritis involving multiple sites with positive rheumatoid 12/20/2017 factor: RF 1000, CCP 206 At risk for bone density loss 12/20/2017 Iron deficiency anemia 12/20/2017 pharmacy 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 manager current use of non-steroidal anti-inflammatories (NSAID) 12/20/2017 documented as of this encounter (statuses as of 03/27/2019) Immunizations Name Administration Dates Next Due TDAP [...] Description Date Type Specialty [facility]inka Sorensenh [address] [facility] [id number] [place], [place] [id number] 1, Clc Mfm Usg Room 04/08/2019 Office Visit Maternal Medicine Rea Jaquez MD [address] [place] [phone] 05/13/2019 Office Visit Rheumatology Shiva Waddell DO [address] [place] [phone] 09/02/2019 Office Visit Internal Medicine Health [...] Phone Address Plan / Dates Group Medicaid [facility] [place] xxxxxxxxx 2018- PLAN - MANAGED MEDICAID [facility] documented as of this encounter
--- OUTSIDE RECORDS SUMMARY | 2019-05-21 08:43 | XMS REPORT | Summary of Care ---
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 Fashion Director Party Plan Sales Name Role Phone Pcp, Patient Does Not Have A PCP Reason for Visit * Reason Comments Assessment Encounter Details Care Team Description Date Type Department Petr Schmidt MD [address] [place] [phone] Assessment 04/03/2019 Telephone [facility]- [facility] [address] [place] [phone] Allergies Comments Active Allergy Reactions Severity Noted Date Adalimumab Nausea and/or 09/06/2018 Vomiting Penicillins Unknown - See 12/20/2017 comments documented as of this encounter (statuses as of 04/07/2019) Medications End Date Status Medication Sig Dispensed [...] as of this encounter (statuses as of 04/07/2019) Active Problems Problem Noted Date Obesity (BMI 30-39.9) 01/03/2019 LLQ pain 09/24/2018 Family history of nephrolithiasis 09/24/2018 Elevated BP without diagnosis of hypertension 09/06/2018 Benign essential microscopic hematuria 05/10/2018 Disability examination 03/28/2018 [facility] (current) use of systemic steroids 02/22/2018 Other chronic pain 02/21/2018 Therapeutic drug monitoring 12/20/2017 Immunization counseling 12/20/2017 Transaminitis 12/20/2017 Rheumatoid arthritis involving multiple sites with positive rheumatoid 12/20/2017 factor: RF 1000, CCP 206 At risk for bone density loss 12/20/2017 Iron deficiency anemia 12/20/2017 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 [place] [phone] 05/13/2019 Office Visit Rheumatology Shiva Waddell DO [address] [place] [address]. [place] [phone] 09/02/2019 Office Visit Internal Medicine Health [...] [place] xxxxxxxxx 2018- PLAN - MANAGED MEDICAID [facility] documented as of this encounter
[2019-05-21] MEDS ORDERED: SODIUM CHLORIDE 0.9% 1000ML 1,000 ML IV SCH (09:30)
[2019-05-21] MEDS ORDERED: ULTRAM50 MG PO (10:20)
[2019-05-21] MEDS ORDERED: CYCLOBENZAPRINE5 MG PO (10:20)
[2019-05-21] MEDS ORDERED: SODIUM CHLORIDE 0.9% 1000ML 1,000 ML ONE (10:31)
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
[2019-05-21 11:35] VITALS: BP 117/59
[2019-05-21] MEDS ORDERED: IOPAMIDOL 370 MG/ML 200 ML INFUS..BTL INJ ONE (12:44)
[2019-05-21] MEDS ORDERED: SODIUM CHLORIDE 0.9% 50ML 50 ML ONE (12:44)
== END 2019-05-21 11:36 | disposition home or self-care (01) ==
LOC: FSED 08:37
DX: S00.83XA Contusion of other part of head, initial encounter (principal); R51 Headache; M54.2 Cervicalgia; S16.1XXA Strain of muscle, fascia and tendon at neck level, initial encounter; S20.212A Contusion of left front wall of thorax, initial encounter; S30.1XXA Contusion of abdominal wall, initial encounter; V43.52XA Car driver injured in collision with other type car in traffic accident, initial encounter; Y92.488 Other paved roadways as the place of occurrence of the external cause
CPT/HCPCS: 70450; 71260; 72125; 74177; 80053; 81003; 81025; 85025; 99284; J7030; Q9967

== ENCOUNTER 2019-06-12 21:03 | Emergency (ER) | payer OTHER ==
[~2019-06-12] VITALS: Ht 162.6 cm; Wt 86.6 kg
[~2019-06-12 21:03] MED LIST: CYCLOBENZAPRINE5 MG PO; ULTRAM50 MG PO
[2019-06-12] MEDS ORDERED: TESSALON PERLE100 MG PO (21:22)
[2019-06-12] MEDS ORDERED: VENTOLIN HFA18 GM PO (21:22)
[2019-06-12] MEDS ORDERED: ALBUTEROL/IPRATROPIUM 3 ML NEB NEB ONE (21:30)
[2019-06-12] MEDS ORDERED: ALBUTEROL/IPRATROPIUM 3 ML NEB ONE (21:36)
--- NOTE | 2019-06-12 21:52 | Diagnostic Imaging Report ---
EXAMINATION: CXR 2 VIEW - HOPD INDICATION: Cough, shortness of breath ^[id number] ^[id number] COMPARISON: None FINDINGS: PA and lateral views TUBES and LINES: None. LUNGS: Lungs are well inflated. There is no evidence of pneumonia or pulmonary edema. PLEURA: No pleural effusion or pneumothorax. HEART AND MEDIASTINUM: The cardiomediastinal silhouette is unremarkable. BONES AND SOFT TISSUES: No focal osseous lesions. Soft tissues are unremarkable. UPPER ABDOMEN: No free air under the diaphragm. IMPRESSION: No acute thoracic abnormality. Signed by: Dr. Thang Ortega MD on 06/12/2019 9:49 PM
[2019-06-12 22:24] VITALS: BP 157/72
== END 2019-06-12 21:50 | disposition home or self-care (01) ==
LOC: FSED 21:03
DX: R05 Cough (principal); J20.9 Acute bronchitis, unspecified; M06.9 Rheumatoid arthritis, unspecified
CPT/HCPCS: 71046; 99283

== ENCOUNTER 2020-02-17 20:39 | Emergency (ER) | payer OTHER ==
[~2020-02-17] VITALS: Ht 162.6 cm; Wt 77.1 kg
[~2020-02-17 20:39] MED LIST changes: +TESSALON PERLE100 MG PO; +VENTOLIN HFA18 GM PO
--- NOTE | 2020-02-17 22:19 | Emergency Department Note ---
History of Present Illnes History of Present Illness Chief Complaint: Skin Rash or Abscess History of Present Illness This is a 49 year old female, with a history of rheumatoid arthritis on chronic biologic agents, who awoke this morning and noticed some redness, mild swelling, and pain just below the left knee. Patient states she was outside yesterday but does not recall getting bitten by any insects. She also denies any known trauma to the area. She denies any fever, chills, nausea, or vomiting. 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 Onset (how long ago): hour(s) (14) Location: LLE Quality: achying, pain Radiation: Reports non-radiation Severity: moderate Onset quality: sudden Duration (how long): hour(s) (14) Timing of current episode: constant Progression: unchanged Chronicity: new Context: Denies recent illness, Denies recent surgery, Denies recent immobilization, Denies trauma/injury, Denies new medications Relieving factors: none Exacerbating factors: none Associated symptoms: Denies cough, Denies fever/chills, Denies malaise, Denies nausea/vomiting, Denies shortness of breath, Denies weakness Risk factors: immunosupprised due to treatment with biologic agents for RA Past Medical/Family History Physician Review I have reviewed the patient's past medical and family history. Any updates have been documented here. Past Medical History Recent Fever: No Clinical Suspicion of Infectio: Yes (localized skin) Past Medical History: Osteoarthritis Other Medical History: RA Past Surgical History: Cholecysctectomy, Tubal Ligation Social History Smoking Cessation: Never Smoker Alcohol Use: Occasional Any Illegal Drug Use: No TB Exposure/Symptoms: No Physically hurt or threatened: No Family History Family history of heart diseas: No Other Last Tetanus: UTD Any Pre-Existing Lines (PICC,: No Review of Systems Review of Systems Constitutional: Denies chills, Denies fever, Denies malaise, Denies weakness EENTM: Reports no symptoms Cardiovascular: Reports no symptoms Respiratory: Denies cough, Denies excessive phlegm production, Denies pain on i nspiration, Denies pain with cough Gastrointestinal: Reports no symptoms Musculoskeletal: Reports no symptoms Integumentary: Reports change in color, Reports lesions (below left knee) Review of other systems: All other systems negative Physical Exam Related Data Allergies: Coded Allergies: Penicillins (Verified Allergy, Intermediate, 05/21/19) Vital signs reviewed: Yes Physical Exam CONSTITUTIONAL Constitutional: Present well-developed, Present well-nourished HENT HENT: Present normocephalic, Present atraumatic, Present oropharynx clear/moist, Present nose normal HENT L/R: Present left ext ear normal, Present right ext ear normal EYES Eyes: Reports PERRL, Reports conjunctivae normal NECK Neck: Present ROM normal PULMONARY Pulmonary: Present effort normal, Present breath sounds normal CARDIOVASCULAR Cardiovascular: Present regular rhythm, Present heart sounds normal, Present capillary refill normal, Present normal rate GASTROINTESTINAL GENITOURINARY SKIN Skin: Present warm, Present dry, Present other (two small, dime sized, round lesions that appear to have been pustules that have drained, and performed a light eschar overlying the wound; there is surrounding erythema, mild warmth and mild tenderness. There is no fluctuance or drainage from the sites;) MUSCULOSKELETAL NEUROLOGICAL Neurological: Present alert, Present oriented x 3 PSYCHOLOGICAL Psychological: Present mood/affect normal Assessment & Plan Medical Decision Making MDM - Discussed with patient that since the area of cellulitis is fairly small, and she is having no systemic symptoms, that we can attempt outpatient management. - Explained it is difficult to know if the skin lesions or due to some bug bites versus a possible folliculitis, secondary to shaving. - Take ALL antibiotics as prescribed. You may take Tylenol or ibuprofen, as needed for pain - Apply heating pad to the area of redness, as much as possible, for the next several days, to promote drainage. -Return to the emergency room if you develop fever, chills, nausea, vomiting worsening redness or pain after being on antibiotics for at least 48 hours. Assessment & Plan Final Impression: (1) Cellulitis of lower extremity (2) Rheumatoid arthritis Depart Disposition: HOME, SELF-[facility] Meds Active Scripts Clindamycin Hcl (CLINDAMYCIN HCL) 150 Mg Capsule, 300 MG PO TID for infection for 10 Days, #30 TAB 0 Refills 2 TABS PO TID Prov:MATTHIEU ÁLVAREZ MD 02/17/20 Benzonatate (TESSALON PERLE) 100 Mg Capsule, 100 MG PO TID PRN for cough for 5 Days, #15 Prov:CHAD ELLIS MD 06/12/19 Albuterol Sulfate (VENTOLIN HFA) 18 Gm Hfa.aer.ad, 2 INH PO Q6HR for cough whe ezing for 7 Days, #1 INH Prov:CHAD ELLIS MD 06/12/19 Cyclobenzaprine Hcl (FLEXERIL) 5 Mg Tablet, 5 MG PO TID PRN for pain for 5 Days, #15 Prov:CHAD ELLIS MD 05/21/19 Tramadol Hcl (ULTRAM) 50 Mg Tablet, 50 MG PO TID PRN for pain for 5 Days, #15 TAB Prov:CHAD ELLIS MD 05/21/19 MATTHIEU ÁLVAREZ MD Feb 17, 2020 22:19
[2020-02-17] MEDS ORDERED: CLINDAMYCIN HC150 MG PO (23:03)
[2020-02-17 23:11] VITALS: BP 139/80
== END 2020-02-17 23:11 | disposition home or self-care (01) ==
LOC: FSED 22:18
DX: L03.116 Cellulitis of left lower limb (principal); M06.9 Rheumatoid arthritis, unspecified
CPT/HCPCS: 99282